=== PATIENT | male | born 1940 | race Caucasian/White ===

== ENCOUNTER → 2018-08-15 17:39 | Outpatient (CLI) | payer MEDICARE, OTHER, SELFPAY ==
[2018-08-15 18:10] LABS: Add Manual Diff / Slide Review NO; Basophils Percent Auto 0.5 % (0-2); Eosinophils Percent Auto 2.9 % (2-4); Hematocrit 46.5 % (41-53); Hemoglobin 15.6 g/dL (13.5-17.5); Lymphocytes Percent Auto 15.4 % (25-40); Mean Corpuscular HGB Conc 33.6 % (30-36); Mean Corpuscular Hemoglobin 30.8 PG (26-34); Mean Corpuscular Volume 91.7 fL (80-100); Monocytes Percent Auto 10.7 % (3-14); Neutrophils Absolute Auto 6500 /uL (3000-5900); Neutrophils Percent Auto 70.5 % (50-75); Platelet Count 167 X10^3/uL (150-400); Red Blood Cell Count 5.08 X10^6/uL (4.5-5.9); Red Cell Distribution Width 13.7 % (11.6-14.8); White Blood Cell Count 9.2 X10^3/uL (4.5-11.0)
[2018-08-15 18:39] LABS: Prothrombin Time 110.7 SECONDS (10.1-12.7)
[2018-08-15 19:00] LABS: INR 9.1 (0.9-1.3)
== END ==
PROVIDERS: PCP Internal Medicine; Visit Provider Dentist Oral and Maxillofacial Surgery
DX: K12.2 Cellulitis and abscess of mouth (principal)
CPT/HCPCS: 36415; 85025; 85610

== ENCOUNTER → 2018-08-18 10:06 | Outpatient (CLI) | payer MEDICARE, OTHER, SELFPAY ==
[2018-08-18 10:29] LABS: INR 1.6 (0.9-1.3); Prothrombin Time 18.3 SECONDS (10.1-12.7)
== END ==
PROVIDERS: PCP Internal Medicine; Visit Provider Dentist Oral and Maxillofacial Surgery
DX: K12.2 Cellulitis and abscess of mouth (principal)
CPT/HCPCS: 36415; 85610

== ENCOUNTER 2018-11-05 06:55 | Inpatient (IN) | payer MEDICARE, OTHER, SELFPAY ==
[2018-11-05] VITALS (15 sets, daily range): BP systolic 90–147; BP diastolic 54–105; PULSE 56–113; RESP 14–21; TEMP 36.4–36.6; O2SAT 94–98; BMI 23.7; BMI 23.6
--- NOTE | 2018-11-05 | DI.NM.S_ITS ---
PROCEDURE: NM NATALIA PERF SPECT R&S PHARM Rest and pharmacological stress myocardial perfusion SPECT with gated imaging and ejection fraction RADIOPHARMACEUTICAL: 27.5 mCi Tc-99m tetrafosmin IV at rest and 26.9 mCi Tc-99m tetrafosmin IV at peak effect of pharmacological stress. [id number] was performed. INDICATIONS: r/o ischemia, elevated enzymes history of CABG TECHNIQUE: Radiopharmaceutical was injected at peak stress test, and also at rest. SPECT images were obtained. SPECT myocardial perfusion images were displayed in short axis, horizontal long axis, and vertical long axis views. Gated images were reviewed using [employer] software. COMPARISON: None. CARDIAC STRESS: A pharmacologic stress test was performed under the supervision of an attending staff, using an infusion of lexiscan 0.4mg IV X1. Hemodynamic data: There is normal blood pressure and heart rate response to pharmacologic stress. Symptoms: The patient denied anginal chest pain. Aminophylline: none EKG: Resting ECG shows atrial fibrillation with RVR and repolarization changes. No diagnostic changes of ischemia with lexiscan; frequent PVCs during the study. FINDINGS: Raw data: There is good myocardial uptake of radiotracer. No significant motion artifacts. Usnk-ji-[id number] ratio is 0.38 (normal is less than 0.38 for tetrafosmin tracer). Left ventricle function: Gated images not done in atrial fibrillation. ID is [id number] (normal less than 1.3). Left ventricle resting end diastolic volume is 103 mL. Myocardial perfusion: There is a severe fixed in the distal anterior wall that extends to the entire apical cap consistent with prior infarction. No ischemia. SSS 20. IMPRESSION: Abnormal pharmaceutical nuclear stress consistent with prior infarction. No ischemia. 1) Abnormal perfusion images consistent with prior transmural infarction in the distal anterior wall and the entire apical cap. 2) No ECG evidence of ischemia. Atrial fibrillation with rapid ventricular response present during the entire study. 3) No angina during the study. 4) Compared to the nuclear stress test done 02/12/2011, no significant change in the perfusion images. Dictated by: Tony Harp MD on 11/07/2018 at 13:01 Approved by: Tony Harp MD on 11/07/2018 at 13:05
--- NOTE | 2018-11-05 07:33 | ED.NEUROSD ---
HPI - Neuro Symptoms/Deficit General Chief Complaint: Neuro Symptoms/Deficit Stated Complaint: DIZZY Time Seen by Provider: 11/05/18 07:05 Source: patient, family and old records reviewed Mode of arrival: ambulatory History of Present Illness HPI Narrative: patient is an 78-year-old male with past medical history of CABG x3 (STOVER to LAD, left radial artery to OM1 and SVG to PDA), chronic AFib on Coumadin, hypertension, CHF (EF of 36% on 11/02/17) presenting with lightheadedness of all my. This is been ongoing for the last 3-5 days. As he was seen evaluated at [facility] on on 11/03/2018. He says he was released however his family states that he left after bagging them to let him go. His he continues to be lightheaded he has no chest pain no heart palpitations. he states it hard for him to describe he denies room spinning numbness tingling or weakness. He has been confused over the past few days as well not the best historian but is able to give some history. According to records his metoprolol was cut in half to 12.5 mg due to hypotension so far in the emergency department his blood pressure seems labile and does have some hypotension but is still in atrial fibrillation. He is currently sitting and reading the paper. Severity: mild On Anticoagulants: Yes Related Data Home Medications Medication Instructions Recorded Confirmed atorvastatin [Lipitor] 80 mg PO QPM 11/05/18 11/05/18 Allergies Allergy/AdvReac Type Severity Reaction Status Date / Time Penicillins Allergy Verified 11/05/18 07:44 Review of Systems Review of Systems ROS Unobtainable: All systems reviewed & are unremarkable except as noted in HPI and below Constitutional Denies chills, Denies fever(s), Denies lethargy and Denies weakness Eyes Denies change in vision, Denies eye discharge, Denies irritation and Denies loss of vision ENT Ears, Nose, Mouth, and Throat: Denies change in voice, Denies vertigo, Denies dizziness, Denies neck pain and Denies sore throat Cardiovascular Denies chest pain, Denies syncope, Reports irregular heart rhythm ( Atrial fibrillation), Reports lightheadedness, Denies dyspnea and Denies dyspnea on exertion Respiratory Denies cough, Denies dyspnea, Denies dyspnea on exertion and Denies wheezing Gastrointestinal Gastrointestinal: Denies abdominal pain, Denies change in bowel habits, Denies diarrhea, Denies nausea and Denies vomiting Genitourinary Denies hematuria, Denies flank pain, Denies urinary incontinence and Denies urinary urgency Musculoskeletal Denies deformity and Denies neck pain Integumentary/Breasts Denies pruritus, Denies erythema, Denies rash and Denies wounds Neurologic Denies vertigo, Denies dizziness, Denies syncope, Denies loss of vision and Denies weakness Allergic/Immunologic Denies wheezing PFSH Medical History Bradycardia (Acute) CHF (congestive heart failure) (Acute) Chronic atrial fibrillation (Acute) Dementia (Acute) Gilbert's disease (Acute) Heart failure with reduced ejection fraction (Acute) Hyperlipidemia (Acute) Hypotension (Acute) Polycythemia vera (Acute) Thrombocytopenia (Acute) Surgical History S/P CABG x 3 (Acute) S/P TAVR (transcatheter aortic valve replacement) (Acute) Family History Sister Cancer Mother Cancer Social History household members: spouse Smoking Status: Never smoker Family History Sister Cancer Mother Cancer Social History household members: spouse Smoking Status: Never smoker Exam Initial Vital Signs Initial Vital Signs: Vital Signs Temperature 97.8 F 11/05/18 07:08 Pulse Rate 108 H 11/05/18 07:08 Respiratory Rate 21 11/05/18 07:08 Blood Pressure 108/67 11/05/18 07:08 Pulse Oximetry 95 11/05/18 07:08 Const General: cooperative, well groomed and frail appearing Orientation: alert, awake and oriented x3 HENMT Head: normal to inspection and normocephalic Eyes General: appearance normal, both eyes and all related structures Neck Neck: normal visual inspection, full ROM and No JVD Chest Chest: normal inspection of the chest Resp Effort & Inspection: normal respiratory effort and able to speak in complete sentences Auscultation: clear to auscultation bilaterally, no rales, no rhonchi and no wheezes Cardio Rate: regular rate Rhythm: regular rhythm Heart Sounds: no click, no gallops, no murmurs and no rubs Pulses: normal peripheral pulses Skin General: no rashes or lesions noted, No jaundice and No petechiae Neuro General: alert, oriented x3, gait normal and no focal motor deficits Speech: speech normal Course Orders Ordered: ED Orders 11/05/18 07:02 EKG-12 Lead Routine 11/05/18 07:15 Complete Blood Count AUTO DIFF Stat Comprehensive Metabolic Panel Stat Lipase Stat Partial Thromboplastin Time Stat Prothrombin Time INR Stat Troponin & CK Cardiac Panel Stat 11/05/18 07:37 CT head/brain wo con Stat XR chest 1V Stat 11/05/18 08:08 Lactate (Lactic Acid) Stat 11/05/18 08:18 Blood Culture Stat 11/05/18 08:55 Influenza A and B by PCR Rapid Stat 11/05/18 09:15 Troponin I Stat 11/05/18 10:15 Ictotest Urine Stat Urinalysis and Microscopic Stat 11/05/18 12:49 US abdomen complete Stat 11/05/18 14:30 Troponin & CK Cardiac Panel Routine 11/05/18 14:33 Education, smoking cessation ONGOING 11/05/18 14:35 Consult to Occupational Therapy Evaluate & Treat Consult to Pharmacy Routine Consult to Physical Therapy Evaluate & Treat 11/06/18 05:00 B Type Natriuretic Peptide Routine Complete Blood Count AUTO DIFF Routine Comprehensive Metabolic Panel Routine Troponin I Routine Acetaminophen (Tylenol) 650 mg PO Q6HR PRN PRN Reason: As Needed for Fever/Mild Pain Atorvastatin Calcium (Lipitor) 80 mg PO BEDTIME ANTONIA Ezetimibe (Zetia) 10 mg PO BEDTIME ANTONIA Sodium Chloride (Normal Saline 0.9%) 1,000 mls @ 200 mls/hr IV CONT ANTONIA Last Infusion: 11/05/18 11:46 Dose: 100 mls/hr Admin: 11/05/18 08:56 Dose: 100 mls/hr Morphine Sulfate (Morphine) 2 mg IV Q4HR PRN PRN Reason: Pain, Moderate (4-6) Ondansetron HCl (Zofran) 4 mg IV Q8HR PRN PRN Reason: Nausea And Vomiting Oxycodone HCl (Percolone) 5 mg PO Q6HR PRN PRN Reason: Pain, Moderate (4-6) Discontinued Medications Cosyntropin (Cortrosyn) 0.25 mg IV NOW ONE Stop: 11/05/18 14:34 Warfarin Sodium (Coumadin) 5 mg PO NOW ONE Stop: 11/05/18 14:43 Vital Signs - 8 hr 11/05/18 07:35 11/05/18 08:36 11/05/18 09:31 Temperature Pulse Rate 103 H 110 H 56 L Respiratory Rate 16 16 16 Blood Pressure Blood Pressure [Left Arm] 94/54 L 90/58 L 113/78 Pulse Oximetry 97 97 98 11/05/18 10:30 11/05/18 11:41 11/05/18 13:31 Temperature Pulse Rate 108 H 113 H 79 Respiratory Rate 17 19 16 Blood Pressure Blood Pressure [Left Arm] 117/76 90/61 114/80 Pulse Oximetry 97 96 97 11/05/18 13:55 11/05/18 14:30 11/05/18 14:50 Temperature 97.6 F Pulse Rate 101 H 93 H Respiratory Rate 15 14 Blood Pressure 147/105 H 133/75 Blood Pressure [Left Arm] Pulse Oximetry 94 95 98 MDM - Neuro Symptoms/Deficit Medical Records Attestation: I reviewed the patient's medical records. Lab Data Attestation: I reviewed the patient's lab results. Result diagrams: 11/05/18 07:15 11/05/18 07:15 Lab Results 11/05/18 11/05/18 11/05/18 Range/Units 07:15 07:15 07:15 WBC 13.0 H (4.5-11.0) X10^3/uL RBC 5.96 H (4.5-5.9) X10^6/uL Hgb 18.2 H (13.5-17.5) g/dL Hct 54.0 H (41-53) % MCV 90.6 (80-100) fL MCH 30.5 (26-34) PG MCHC 33.7 (30-36) % RDW 14.1 (11.6-14.8) % Plt Count 123 L (150-400) X10^3/uL Neut % (Auto) 85.9 H (50-75) % Lymph % (Auto) 6.5 L (25-40) % Hawkins % (Auto) 6.3 (3-14) % Eos % (Auto) 1.1 L (2-4) % Baso % (Auto) 0.2 (0-2) % Neut # (Auto) 73192 H (4215-6512) /uL Lymph # (Auto) 900 L (1834-8172) /uL Hawkins # (Auto) 800 (0-900) /uL Eos # (Auto) 100 (0-450) /uL Baso # (Auto) 0 (0-100) /uL PT 36.1 H (10.1-12.7) SECONDS INR 3.0 H (0.9-1.3) APTT 43 H (26.4-36.2) SECONDS Sodium 140 (137-145) mmol/L Potassium 4.1 (3.4-5.1) mmol/L Chloride 106 (98-107) mmol/L Carbon Dioxide 22 (22-32) mmol/L BUN 23 H (9-20) mg/dL Creatinine 0.90 (0.66-1.25) mg/dL Estimated GFR > 60.0 (>60) mL/min BUN/Creatinine Ratio 25.6 H (6-22) Glucose 110 (80-110) mg/dL Lactate (0.7-2.1) mmol/L Calcium 9.7 (8.4-10.2) mg/dL Total Bilirubin 2.6 H (0.2-1.3) mg/dL AST 40 (17-59) IU/L ALT 41 (21-72) IU/L Alkaline Phosphatase 65 (38-126) U/L Total Creatine Kinase 146 (55-170) U/L CK-MB (CK-2) 4.04 H (<2.37) ng/mL CK-MB (CK-2) Rel Index 2.8 (1.5-5.0) % Troponin I 0.042 H (0.01-0.034) ng/mL Total Protein 7.5 (6.3-8.2) g/dL Albumin 4.4 (3.5-5.0) g/dL Globulin 3.1 (1.7-4.1) g/dL Albumin/Globulin Ratio 1.4 (1.0-2.8) Lipase 64 (23-300) U/L Urine Color Urine Appearance Urine pH (4.5-8.0) Ur Specific Putnam (1.000-1.035) Urine Protein (Negative) Urine Glucose (UA) (Negative) g/dL Urine Ketones (NEGATIVE) Urine Occult Blood (Negative) Urine Nitrate (Negative) Urine Bilirubin (NEGATIVE) Urine Ictotest (Negative) Urine Urobilinogen (0.2) E.U./dL Ur Leukocyte Esterase (NEGATIVE) Urine RBC (0-5/HPF) Urine WBC (0-5/HPF) Ur Squamous Epith Cells Urine Bacteria (None) Hyaline Casts (None) Ur Culture Indicated? Influenza A & B (PCR) (Negative) 11/05/18 11/05/18 11/05/18 Range/Units 08:08 08:55 09:15 WBC (4.5-11.0) X10^3/uL RBC (4.5-5.9) X10^6/uL Hgb (13.5-17.5) g/dL Hct (41-53) % MCV (80-100) fL MCH (26-34) PG MCHC (30-36) % RDW (11.6-14.8) % Plt Count (150-400) X10^3/uL Neut % (Auto) (50-75) % Lymph % (Auto) (25-40) % Hawkins % (Auto) (3-14) % Eos % (Auto) (2-4) % Baso % (Auto) (0-2) % Neut # (Auto) (2442-6685) /uL Lymph # (Auto) (1528-1325) /uL Hawkins # (Auto) (0-900) /uL Eos # (Auto) (0-450) /uL Baso # (Auto) (0-100) /uL PT (10.1-12.7) SECONDS INR (0.9-1.3) APTT (26.4-36.2) SECONDS Sodium (137-145) mmol/L Potassium (3.4-5.1) mmol/L Chloride (98-107) mmol/L Carbon Dioxide (22-32) mmol/L BUN (9-20) mg/dL Creatinine (0.66-1.25) mg/dL Estimated GFR (>60) mL/min BUN/Creatinine Ratio (6-22) Glucose (80-110) mg/dL Lactate 1.2 (0.7-2.1) mmol/L Calcium (8.4-10.2) mg/dL Total Bilirubin (0.2-1.3) mg/dL AST (17-59) IU/L ALT (21-72) IU/L Alkaline Phosphatase (38-126) U/L Total Creatine Kinase (55-170) U/L CK-MB (CK-2) (<2.37) ng/mL CK-MB (CK-2) Rel Index (1.5-5.0) % Troponin I 0.037 H (0.01-0.034) ng/mL Total Protein (6.3-8.2) g/dL Albumin (3.5-5.0) g/dL Globulin (1.7-4.1) g/dL Albumin/Globulin Ratio (1.0-2.8) Lipase (23-300) U/L Urine Color Urine Appearance Urine pH (4.5-8.0) Ur Specific Putnam (1.000-1.035) Urine Protein (Negative) Urine Glucose (UA) (Negative) g/dL Urine Ketones (NEGATIVE) Urine Occult Blood (Negative) Urine Nitrate (Negative) Urine Bilirubin (NEGATIVE) Urine Ictotest (Negative) Urine Urobilinogen (0.2) E.U./dL Ur Leukocyte Esterase (NEGATIVE) Urine RBC (0-5/HPF) Urine WBC (0-5/HPF) Ur Squamous Epith Cells Urine Bacteria (None) Hyaline Casts (None) Ur Culture Indicated? Influenza A & B (PCR) Negative (Negative) 11/05/18 11/05/18 Range/Units 10:15 14:30 WBC (4.5-11.0) X10^3/uL RBC (4.5-5.9) X10^6/uL Hgb (13.5-17.5) g/dL Hct (41-53) % MCV (80-100) fL MCH (26-34) PG MCHC (30-36) % RDW (11.6-14.8) % Plt Count (150-400) X10^3/uL Neut % (Auto) (50-75) % Lymph % (Auto) (25-40) % Hawkins % (Auto) (3-14) % Eos % (Auto) (2-4) % Baso % (Auto) (0-2) % Neut # (Auto) (2364-9219) /uL Lymph # (Auto) (8465-8079) /uL Hawkins # (Auto) (0-900) /uL Eos # (Auto) (0-450) /uL Baso # (Auto) (0-100) /uL PT (10.1-12.7) SECONDS INR (0.9-1.3) APTT (26.4-36.2) SECONDS Sodium (137-145) mmol/L Potassium (3.4-5.1) mmol/L Chloride (98-107) mmol/L Carbon Dioxide (22-32) mmol/L BUN (9-20) mg/dL Creatinine (0.66-1.25) mg/dL Estimated GFR (>60) mL/min BUN/Creatinine Ratio (6-22) Glucose (80-110) mg/dL Lactate (0.7-2.1) mmol/L Calcium (8.4-10.2) mg/dL Total Bilirubin (0.2-1.3) mg/dL AST (17-59) IU/L ALT (21-72) IU/L Alkaline Phosphatase (38-126) U/L Total Creatine Kinase 150 (55-170) U/L CK-MB (CK-2) (<2.37) ng/mL CK-MB (CK-2) Rel Index (1.5-5.0) % Troponin I (0.01-0.034) ng/mL Total Protein (6.3-8.2) g/dL Albumin (3.5-5.0) g/dL Globulin (1.7-4.1) g/dL Albumin/Globulin Ratio (1.0-2.8) Lipase (23-300) U/L Urine Color Yellow Urine Appearance Clear Urine pH 5.0 (4.5-8.0) Ur Specific Putnam >=1.030 H (1.000-1.035) Urine Protein 1+ H (Negative) Urine Glucose (UA) Negative (Negative) g/dL Urine Ketones Trace H (NEGATIVE) Urine Occult Blood Trace-lysed (Negative) Urine Nitrate Negative (Negative) Urine Bilirubin 1+ H (NEGATIVE) Urine Ictotest Negative (Negative) Urine Urobilinogen 0.2 (0.2) E.U./dL Ur Leukocyte Esterase Negative (NEGATIVE) Urine RBC None seen (0-5/HPF) Urine WBC 0-1/hpf (0-5/HPF) Ur Squamous Epith Cells 0-1 /hpf Urine Bacteria None seen (None) Hyaline Casts 0-1/lpf (None) Ur Culture Indicated? Cult not indicated Influenza A & B (PCR) (Negative) Urine Dip Bedside Urine Glucose Negative Bedside Urine Bilirubin - Negative Bedside Urine Ketone + 15 Urine Specific Putnam 1.030 Bedside Urine Occult Blood +/- Bedside Urine pH 5.5 Bedside Urine Protein + 30 Bedside Urine Urobilinogen - Negative Bedside Urine Nitrite - Negative Bedside Urine Leukocytes - Negative Esterase Imaging Data CT scan - head: Radiologist's impression: PROCEDURE: CT HEAD/BRAIN WO CON INDICATIONS: dizzy confusion on coumadin TECHNIQUE: Noncontrast 4.5 mm thick angled axial sections acquired from the foramen magnum to the vertex, with coronal and sagittal reformats. For radiation dose reduction, the following was used: automated exposure control, adjustment of mA and/or kV according to patient size. COMPARISON: [facility], CT, CT HEAD WITHOUT CONTRAST, 11/03/2018, 9:08. FINDINGS: Image quality: Excellent. CSF spaces: Basal cisterns are patent. No extra-axial fluid collections. The ventricles are symmetric in size and shape. Brain: No intracranial bleeds or masses. There is cerebral volume loss for age, with resultant ventricular and sulcal prominence. There are periventricular and deep white matter chronic small vessel ischemic changes. There is intracranial internal carotid artery atherosclerosis. Skull and face: Calvarium and visualized facial bones appear intact, without suspicious lesions. Sinuses: Visualized sinuses and mastoids are clear. IMPRESSION: 1. No acute intracranial process. 2. Moderate atrophy and chronic microvascular ischemic changes. Dictated by: Wendi Barber M.D. on 11/05/2018 at 8:29 Chest x-ray: Radiologist's impression: PROCEDURE: XR CHEST 1V INDICATIONS: a.fib confusion TECHNIQUE: One view of the chest was acquired. COMPARISON: [facility], CR, XR CHEST 1 VIEW, 11/03/2018, 9:31. FINDINGS: Surgical changes and devices: Sternal wires and valve graft material is noted. Lungs and pleura: Lungs are clear. No pleural effusions or pneumothorax. Mediastinum: Mediastinal contours appear normal. Heart size is mildly prominent. Bones and chest wall: No suspicious bony lesions. Overlying soft tissues appear unremarkable. IMPRESSION: No acute pulmonary process. Dictated by: Wendi Barber M.D. on 11/05/2018 at 9:28 ECG Data Attestation: I personally reviewed and interpreted this ECG as follows: Prior ECG tracings: not available for review Interpretation: AFib rate [address] changes no priors at this hospital. MDM Narrative Medical decision making narrative: patient had ambulation trial. He walked a relatively short distance heart rate increased into 130 is blood pressure dropped to 85/50 he was feeling dizzy and lightheaded. I spoke with who is in ED to see and evaluate patient. Discharge Plan Departure Patient Disposition: Admitted as Observation Clinical Impression: Hypotension due to medication, Dizziness Discharge Date/Time: 11/05/18 14:07 Interventions: ED Discharge Assessment Last Done: 11/05/18 14:06 Admit Date/Time: 11/05/18 10:59 Admit Provider: Carolyn Vrenon
--- NOTE | 2018-11-05 07:37 | DI.CT.S_ITS ---
PROCEDURE: CT HEAD/BRAIN WO CON INDICATIONS: dizzy confusion on coumadin TECHNIQUE: Noncontrast 4.5 mm thick angled axial sections acquired from the foramen magnum to the vertex, with coronal and sagittal reformats. For radiation dose reduction, the following was used: automated exposure control, adjustment of mA and/or kV according to patient size. COMPARISON: [facility], CT, CT HEAD WITHOUT CONTRAST, 11/03/2018, 9:08. FINDINGS: Image quality: Excellent. CSF spaces: Basal cisterns are patent. No extra-axial fluid collections. The ventricles are symmetric in size and shape. Brain: No intracranial bleeds or masses. There is cerebral volume loss for age, with resultant ventricular and sulcal prominence. There are periventricular and deep white matter chronic small vessel ischemic changes. There is intracranial internal carotid artery atherosclerosis. Skull and face: Calvarium and visualized facial bones appear intact, without suspicious lesions. Sinuses: Visualized sinuses and mastoids are clear. IMPRESSION: 1. No acute intracranial process. 2. Moderate atrophy and chronic microvascular ischemic changes. Dictated by: Wendi Barber M.D. on 11/05/2018 at 8:29 Approved by: Wendi Barber M.D. on 11/05/2018 at 8:32
--- NOTE | 2018-11-05 07:37 | DI.RAD.S_ITS ---
PROCEDURE: XR CHEST 1V INDICATIONS: a.fib confusion TECHNIQUE: One view of the chest was acquired. COMPARISON: [facility], CR, XR CHEST 1 VIEW, 11/03/2018, 9:31. FINDINGS: Surgical changes and devices: Sternal wires and valve graft material is noted. Lungs and pleura: Lungs are clear. No pleural effusions or pneumothorax. Mediastinum: Mediastinal contours appear normal. Heart size is mildly prominent. Bones and chest wall: No suspicious bony lesions. Overlying soft tissues appear unremarkable. IMPRESSION: No acute pulmonary process. Dictated by: Wendi Barber M.D. on 11/05/2018 at 9:28 Approved by: Wendi Barber M.D. on 11/05/2018 at 9:30
[2018-11-05 07:53] LABS: Add Manual Diff / Slide Review NO; Basophils Absolute Auto 0 /uL (0-100); Basophils Percent Auto 0.2 % (0-2); Eosinophils Absolute Auto 100 /uL (0-450); Eosinophils Percent Auto 1.1 % (2-4); Hemoglobin 18.2 g/dL (13.5-17.5); Lymphocytes Absolute Auto 900 /uL (1100-4500); Lymphocytes Percent Auto 6.5 % (25-40); Mean Corpuscular HGB Conc 33.7 % (30-36); Mean Corpuscular Hemoglobin 30.5 PG (26-34); Mean Corpuscular Volume 90.6 fL (80-100); Monocytes Absolute Auto 800 /uL (0-900); Monocytes Percent Auto 6.3 % (3-14); Neutrophils Absolute Auto 11200 /uL (1500-7000); Neutrophils Percent Auto 85.9 % (50-75); Platelet Count 123 X10^3/uL (150-400); Red Blood Cell Count 5.96 X10^6/uL (4.5-5.9); Red Cell Distribution Width 14.1 % (11.6-14.8)
[2018-11-05 07:55] LABS: Prothrombin Time 36.1 SECONDS (10.1-12.7)
[2018-11-05 07:58] LABS: PTT Partial Thromboplastin Tim 43 SECONDS (26.4-36.2)
[2018-11-05 07:59] LABS: Alanine Aminotransferase 41 IU/L (21-72); Albumin 4.4 g/dL (3.5-5.0); Albumin Globulin Ratio 1.4 (1.0-2.8); Alkaline Phosphatase 65 U/L (38-126); Aspartate Aminotransferase 40 IU/L (17-59); BUN Creatinine Ratio 25.6 (6-22); Bilirubin Total 2.6 mg/dL (0.2-1.3); Blood Urea Nitrogen 23 mg/dL (9-20); Calcium 9.7 mg/dL (8.4-10.2); Carbon Dioxide 22 mmol/L (22-32); Chloride 106 mmol/L (98-107); Creatine Kinase 146 U/L (55-170); Estimated Glomerular Filt Rate > 60.0 mL/min (>60); Globulin 3.1 g/dL (1.7-4.1); Glucose 110 mg/dL (80-110); HEMOLYSIS 19 (0-50); Lipase 64 U/L (23-300); Potassium 4.1 mmol/L (3.4-5.1); Sodium 140 mmol/L (137-145); Total Protein 7.5 g/dL (6.3-8.2)
[2018-11-05 08:10] LABS: Troponin I 0.042 ng/mL (0.01-0.034)
[2018-11-05 08:14] LABS: CKMB % Relative Index 2.8 % (1.5-5.0); Creatine Kinase MB 4.04 ng/mL (<2.37)
[2018-11-05 08:34] LABS: Lactate (Lactic Acid) 1.2 mmol/L (0.7-2.1)
[2018-11-05] MEDS: SODIUM CHLORIDE 0.9% 1,000 ML 100 ML IV (08:56)
[2018-11-05 09:16] LABS: Influenza A and B by PCR Rapid Negative (Negative)
[2018-11-05 09:43] LABS: Troponin I 0.037 ng/mL (0.01-0.034)
--- NOTE | 2018-11-05 10:13 | PC.NURSE ---
Ambulation trial Before walking b/p 153/63 after walk pt states dizzy b/p 85/70 after resting B/P 115/84 Dr. Castro notified. No orders at this time. Pt sitting on edge of bed eating with family at bedside.
[2018-11-05 10:32] LABS: Bacteria Urine None Seen; RBC Urine None Seen (0-5/HPF)
[2018-11-05 10:46] LABS: Appearance Urine UA CLEAR; Bilirubin Urine UA 1+ (NEGATIVE); Color Urine UA YELLOW; Glucose Urine UA NEGATIVE (Negative); Ketones Urine UA TRACE (NEGATIVE); Leukocyte Esterase Urine UA NEGATIVE (NEGATIVE); Nitrite Urine UA NEGATIVE (Negative); Occult Blood Urine UA TRACE-LYSED (Negative); Protein Urine UA 1+ (Negative); Specific Gravity Urine UA >=1.030 (1.000-1.035); Urobilinogen Urine UA 0.2 E.U./dL (0.2)
[2018-11-05 10:52] LABS: Culture Indicated Urine Cult Not Indicated; Hyaline Casts Urine 0-1/LPF; Ictotest Urine Negative (Negative); Squamous Epithelial Cell Urine 0-1 /HPF; WBC Urine 0-1/HPF (0-5/HPF)
--- NOTE | 2018-11-05 12:49 | DI.US.S_ITS ---
PROCEDURE: US ABDOMEN COMPLETE INDICATIONS: ELEVATED BILIRUBIN TECHNIQUE: Real-time scanning was performed of the abdominal and retroperitoneal organs, with image documentation. COMPARISON: [facility], CT, ABD/PELVIS W/CON (PNL), 11/01/2013, 16:23. FINDINGS: Liver: Liver is normal in size and homogeneous in echotexture. Gallbladder: Gallbladder is unremarkable. Wall thickness is within normal limits measuring 1.8 mm. Biliary ducts: Intrahepatic bile ducts are non-dilated. Extrahepatic bile duct caliber measures 3.2 mm. Normal is 6-7 mm or less in diameter, or 10 mm or less post-cholecystectomy. Pancreas: Visualized portions of the pancreas are sonographically normal. Spleen: Spleen is normal in size and homogeneous in echotexture. Kidneys: Kidneys are normal in size and echotexture. Right kidney measures 11.0 cm long; left kidney measures 12.0 cm long. No hydronephrosis or nephrolithiasis. No solid masses. Aorta: Visualized aorta is normal in caliber at less than 3 cm. Iliacs: Proximal common iliac arteries are normal in caliber at less than 2.5 cm. IVC: Intrahepatic inferior vena cava is patent. Miscellaneous: No free abdominal fluid. IMPRESSION: Unremarkable exam. Dictated by: Wendi Barber M.D. on 11/05/2018 at 14:01 Approved by: Wendi Barber M.D. on 11/05/2018 at 14:02
--- NOTE | 2018-11-05 13:01 | P.HP_ITS ---
History of Present Illness Date Patient Seen: 11/05/18 Chief complaint: DIZZY Narrative: Patient is an 78 y/o male who was discharged from [facility] yesterday following admission for dizziness/hypotension. Patient has a history of CABG, Chronic Atrial Fibrillation on coumadin, Hypertension, Hyperlipdemia, who is S/P TAVR (2017). He has CHF with an ejection fraction of 36%, polycythemia vera with thrombocytopena who presented to [facility] ED for evaluation of hypotension and bradycardia. The patient was confused. He had 3 days of dizziness and lightheadedness. Patient was given one liter of fluid in the Emergency Department after evaluation found his heart rate of 49 and bp 90/70. He is followed by Dr. Jacobs and recently was started on metoprolol of 25 mg per day. Patient was admitted overnight and his metoprolol was decreased to 12.5 mg per day. The patient insisted on leaving the hospital and his was discharged home. He reports since returning home he has had diarrhea, some nausea, and persistant dizziness. He has had no shortness of breath or chest pain. He denies palpitaitons. He has not vomitted blood, or had bright red blood per rectum. He reports abdominal pain from his shingles. He has had no fever or chills, no dysuria, hematuria, or pyuria. His WBC was elevated in the ED at 13.3. His repeat CT of the Head was unremarkable and his Chest Xray was negative. EKG revealed atrial fibrillation and an old AMI. According to the family the patient is more confused that usual. In the Emergency department the patient's blood pressure dropped to 85 systolic with a hear rate of 130 when standing. He is admitted to the hospital for further evaluation. Patient History Medical History Bradycardia (Acute) CHF (congestive heart failure) (Acute) Chronic atrial fibrillation (Acute) Dementia (Acute) [place]'s disease (Acute) Heart failure with reduced ejection fraction (Acute) Hyperlipidemia (Acute) Hypotension (Acute) Polycythemia vera (Acute) Thrombocytopenia (Acute) Surgical History S/P CABG x 3 (Acute) S/P TAVR (transcatheter aortic valve replacement) (Acute) Family History Sister Cancer Mother Cancer Social History (Reviewed 11/05/18 @ 07:51 by MAYRA Michelle Smoking Status: Never smoker Family & Social History Family History Sister Cancer Mother Cancer Social History: . lives at home with his Does not smoke does not drink alcohol Safety & Behavioral: Feels Safe in Current Yes Environment Been Physically Hurt or No Threatened By a Person Tobacco & Substance use: Smoking Status Never smoker alcohol intake frequency 0-2 drinks per day Substance Use Type does not use Meds Allergies Allergy/AdvReac Type Severity Reaction Status Date / Time Penicillins Allergy Verified 11/05/18 07:44 Review of Systems Review of Systems All systems reviewed & are unremarkable except as noted in HPI and below Exam Vital Signs (past 8 hours): - 11/05/18 07:08 11/05/18 07:35 11/05/18 08:36 Temperature 97.8 F Pulse Rate 108 H 103 H 110 H Respiratory Rate 21 16 16 Blood Pressure 108/67 Blood Pressure [Left Arm] 94/54 L 90/58 L Pulse Oximetry 95 97 97 11/05/18 09:31 11/05/18 10:30 11/05/18 11:41 Temperature Pulse Rate 56 L 108 H 113 H Respiratory Rate 16 17 19 Blood Pressure Blood Pressure [Left Arm] 113/78 117/76 90/61 Pulse Oximetry 98 97 96 Oxygen Delivery Method Room Air Narrative Exam Narrative: ill appearing male HEENT: NC/AT, EOMI, oropharynx clear, neck supple without adenopathy, no JVD Lungs: decreased breath sounds but clear to auscultation CV: Irregularly, irregular, NL Sl S2 2/6 TIFFANIE ABd: soft/ non tender/ non distended, no HSM Ext: no edema Neuro: confused, Cranial Nerves 2-12 Intact, sensation grossly intact, strength symmetric and equal, gait not assessed, reflexes brisk and equal Psych: pleasant but at times confused/forgetful Objective Labs Result Diagrams: 11/05/18 07:15 11/05/18 07:15 Labs: Laboratory Results - last 24 hr 11/05/18 11/05/18 11/05/18 07:15 07:15 07:15 WBC 13.0 H RBC 5.96 H Hgb 18.2 H Hct 54.0 H MCV 90.6 MCH 30.5 MCHC 33.7 RDW 14.1 Plt Count 123 L Neut % (Auto) 85.9 H Lymph % (Auto) 6.5 L [place] % (Auto) 6.3 Eos % (Auto) 1.1 L Baso % (Auto) 0.2 Neut # (Auto) 80950 H Lymph # (Auto) 900 L [place] # (Auto) 800 Eos # (Auto) 100 Baso # (Auto) 0 PT 36.1 H INR 3.0 H APTT 43 H Sodium 140 Potassium 4.1 Chloride 106 Carbon Dioxide 22 BUN 23 H Creatinine 0.90 Estimated GFR > 60.0 BUN/Creatinine Ratio 25.6 H Glucose 110 Lactate Calcium 9.7 Total Bilirubin 2.6 H AST 40 ALT 41 Alkaline Phosphatase 65 Total Creatine Kinase 146 CK-MB (CK-2) 4.04 H CK-MB (CK-2) Rel Index 2.8 Troponin I 0.042 H Total Protein 7.5 Albumin 4.4 Globulin 3.1 Albumin/Globulin Ratio 1.4 Lipase 64 Urine Color Urine Appearance Urine pH Ur Specific [place] Urine Protein Urine Glucose (UA) Urine Ketones Urine Occult Blood Urine Nitrate Urine Bilirubin Urine Ictotest Urine Urobilinogen Ur Leukocyte Esterase Urine RBC Urine WBC Ur Squamous Epith Cells Urine Bacteria Hyaline Casts Ur Culture Indicated? Influenza A & B (PCR) 11/05/18 11/05/18 11/05/18 08:08 08:55 09:15 WBC RBC Hgb Hct MCV MCH MCHC RDW Plt Count Neut % (Auto) Lymph % (Auto) [place] % (Auto) Eos % (Auto) Baso % (Auto) Neut # (Auto) Lymph # (Auto) [place] # (Auto) Eos # (Auto) Baso # (Auto) PT INR APTT Sodium Potassium Chloride Carbon Dioxide BUN Creatinine Estimated GFR BUN/Creatinine Ratio Glucose Lactate 1.2 Calcium Total Bilirubin AST ALT Alkaline Phosphatase Total Creatine Kinase CK-MB (CK-2) CK-MB (CK-2) Rel Index Troponin I 0.037 H Total Protein Albumin Globulin Albumin/Globulin Ratio Lipase Urine Color Urine Appearance Urine pH Ur Specific [place] Urine Protein Urine Glucose (UA) Urine Ketones Urine Occult Blood Urine Nitrate Urine Bilirubin Urine Ictotest Urine Urobilinogen Ur Leukocyte Esterase Urine RBC Urine WBC Ur Squamous Epith Cells Urine Bacteria Hyaline Casts Ur Culture Indicated? Influenza A & B (PCR) Negative 11/05/18 10:15 WBC RBC Hgb Hct MCV MCH MCHC RDW Plt Count Neut % (Auto) Lymph % (Auto) [place] % (Auto) Eos % (Auto) Baso % (Auto) Neut # (Auto) Lymph # (Auto) [place] # (Auto) Eos # (Auto) Baso # (Auto) PT INR APTT Sodium Potassium Chloride Carbon Dioxide BUN Creatinine Estimated GFR BUN/Creatinine Ratio Glucose Lactate Calcium Total Bilirubin AST ALT Alkaline Phosphatase Total Creatine Kinase CK-MB (CK-2) CK-MB (CK-2) Rel Index Troponin I Total Protein Albumin Globulin Albumin/Globulin Ratio Lipase Urine Color Yellow Urine Appearance Clear Urine pH 5.0 Ur Specific [place] >=1.030 H Urine Protein 1+ H Urine Glucose (UA) Negative Urine Ketones Trace H Urine Occult Blood Trace-lysed Urine Nitrate Negative Urine Bilirubin 1+ H Urine Ictotest Negative Urine Urobilinogen 0.2 Ur Leukocyte Esterase Negative Urine RBC None seen Urine WBC 0-1/hpf Ur Squamous Epith Cells 0-1 /hpf Urine Bacteria None seen Hyaline Casts 0-1/lpf Ur Culture Indicated? Cult not indicated Influenza A & B (PCR) Assessment & Plan Assessment & Plan narrative: 1. Dizziness/Hypotension-Etiology not clear, patient off medications at this time ( he has not taken any medications since home). He reports diarrhea since yesterday but notes dizziness started before diarrhea- Elevated BUN/Creat suggest volume depletion, present on admissions, will r/o adrenal insufficiency -For now will continue IV hydration, hold metoprolol and lisinopril, check orthostatics, continue telemetry 2. Elevated cardiac enzymes, suspect type 2 Myocardial infarction, present on admission-Discussed with Cardiology, will schedule stress test for tomorrow given elevated enzymes and hypotension 3. Chronic Atrial Fibrillation, present on admission-rate currently controlled, no medications to lower blood pressure given hypotension/dizziness, will continue coumadin 4. S/P TAVR 5. S/P CABG, elevated enzymes, stress test tomorrow 6. Gilbert's disease-explains elevated bilirubin 7.Hyperlipidemia 8. Diarrhea, will check Cdiff 8. Chronic Systolic Heart Failure, will monitor closely 9. Memory loss-? Dementia Plan: continue IV hydration, Continue Statin, Continue Coumadin, R/o [place], Stress test in Am. Cardiology consult tomorrow Will check blood and urine cultures to r/o infection. R/o adrenal insufficiency given orthostatic blood pressure. DNR
[2018-11-05 15:15] LABS: Creatine Kinase 150 U/L (55-170)
[2018-11-05 15:28] LABS: Troponin I 0.041 ng/mL (0.01-0.034)
[2018-11-05 15:30] LABS: Creatine Kinase MB 4.52 ng/mL (<2.37)
--- NOTE | 2018-11-05 15:49 | PT.IPTN ---
Physical Therapy Treatment Note M3 PT-IP Subjective Start: 11/05/18 15:48 Freq: NEEDED Status: Active Protocol: Document 11/05/18 15:48 [facility] (Rec: 11/05/18 15:49 [facility] [id number]) Subjective Physical Therapy Visit Type Type Cancellation Notes per RN, pt's HR standing @ bedside into the 140s, not tolerating activity at this time. Recommend to hold PT until HR is more stable, WNL.
--- NOTE | 2018-11-05 15:59 | PC.NURSE ---
Day shift- Report rec'd from SHABANA Ackerman in ED at 1338 on current pt status. Pt arrived via stretcher into room 221 at 1357. Pt A&OX4, forgetful. Arrival BP was 147/105, upon recheck was 133/75. Pt currently on Tele#12. Denies chest pain, discomfort, shortness of breath, nausea while in bed. IVF infusing at 200ml/hr into left wrist PIV. Oriented to call light, bed alarm on. High fall risk precautions in place.
[2018-11-05] MEDS: KCL 20 MEQ IN NS 1,000 ML 100 MEQ IV (16:45)
[2018-11-05] MEDS: WARFARIN 5 MG TABLET PO (16:45)
[2018-11-05] MEDS: ATORVASTATIN 20 MG TABLET 80 MG PO (20:36)
[2018-11-05] MEDS: EZETIMIBE 10 MG TABLET PO (20:36)
[2018-11-06] VITALS (9 sets, daily range): BP systolic 117–157; BP diastolic 73–110; PULSE 89–152; RESP 16–20; TEMP 36.4–37.2; O2SAT 94–96
--- NOTE | 2018-11-06 | DI.MRI.S_ITS ---
PROCEDURE: MR ANGIO HEAD WO CON INDICATIONS: DIZZY TECHNIQUE: Noncontrast axial 3-D [id number] MR angiogram, with 3-dimensional maximum intensity projection (MIP) reformats of the internal carotid arteries and posterior circulation then performed. COMPARISON: [facility], MR, MR HEAD/BRAIN WO CON, 11/06/2018, 17:34. [facility], CT, CT HEAD/BRAIN WO CON, 11/05/2018, 7:36. [facility], MR, ANGIO HEAD WITHOUT CONTRAST, 04/22/2014, 7:41. FINDINGS: Image quality: Excellent. Anterior circulation: Intracranial internal carotid arteries demonstrate normal size and intraluminal flow signal. The flow within the paired anterior cerebral arteries is normal and symmetric. The flow within the middle cerebral arteries is normal and symmetric. The anterior communicating artery is seen. No stenoses, occlusions, or aneurysms. Posterior circulation: Visualized portions of the vertebral arteries demonstrate normal caliber, and join to form a normal appearing basilar artery. The flow within the posterior cerebral arteries is normal and symmetric. No stenoses, occlusions, or aneurysms. IMPRESSION: No significant intracranial MR angiogram abnormality is seen. Stable from 2013. Dictated by: Reji Torres M.D. on 11/06/2018 at 17:16 Approved by: Reji Torres M.D. on 11/06/2018 at 17:17
--- NOTE | 2018-11-06 | DI.MRI.S_ITS ---
PROCEDURE: MR HEAD/BRAIN WO CON INDICATIONS: Global hypoxic injury?? hypotensive TECHNIQUE: The following limited sequences were obtained: Axial diffusion weighted imaging with ADC maps, axial T1 weighted, axial FLAIR, and axial T2-weighted images. After these imaging sequences were obtained, the patient terminated the examination prematurely. COMPARISON: [facility], CT, CT HEAD/BRAIN WO CON, 11/05/2018, 7:36. [facility], MR, MR ANGIO HEAD WO CON, 11/06/2018, 17:34. [facility], MR, ANGIO HEAD WITHOUT CONTRAST, 04/22/2014, 7:41. FINDINGS: Image quality: Excellent. CSF spaces: Ventricles appear symmetric in size and shape. Basal cisterns are patent. No extra-axial fluid collections. Brain: No intracranial bleeds or mass effects. There is cerebral volume loss for age. There are periventricular and deep white matter chronic small vessel ischemic changes. Brainstem appears normal. Diffusion-weighted images show no acute ischemic insults. No chronic ischemic insults. Normal intravascular flow voids are present. Skull and face: Calvarial bone marrow is normal in signal. Orbits are normal. Note is made of bilateral lens replacements. Sinuses: Sinuses and mastoids are clear. IMPRESSION: No findings of acute or subacute infarction can be seen. No abnormal hydrocephalus or brain edema can be seen. Note is made of age-appropriate brain parenchymal volume loss and chronic small vessel ischemic changes. Limited study, which was prematurely terminated by the patient. Dictated by: Reji Torres M.D. on 11/06/2018 at 17:13 Approved by: Reji Torres M.D. on 11/06/2018 at 17:14
[2018-11-06] MEDS: KCL 20 MEQ IN NS 1,000 ML 100 MEQ IV ×2 (03:57→11:39)
[2018-11-06 05:46] LABS: Add Manual Diff / Slide Review NO; Basophils Absolute Auto 0 /uL (0-100); Basophils Percent Auto 0.7 % (0-2); Eosinophils Absolute Auto 100 /uL (0-450); Eosinophils Percent Auto 1.9 % (2-4); Hematocrit 46.7 % (41-53); Hemoglobin 15.5 g/dL (13.5-17.5); Lymphocytes Absolute Auto 1100 /uL (1100-4500); Mean Corpuscular HGB Conc 33.2 % (30-36); Mean Corpuscular Hemoglobin 30.2 PG (26-34); Mean Corpuscular Volume 90.9 fL (80-100); Monocytes Absolute Auto 800 /uL (0-900); Monocytes Percent Auto 11.3 % (3-14); Neutrophils Absolute Auto 4900 /uL (1500-7000); Neutrophils Percent Auto 70.1 % (50-75); Platelet Count 100 X10^3/uL (150-400); Red Blood Cell Count 5.14 X10^6/uL (4.5-5.9); Red Cell Distribution Width 13.8 % (11.6-14.8)
[2018-11-06 05:56] LABS: Alanine Aminotransferase 44 IU/L (21-72); Albumin 3.4 g/dL (3.5-5.0); Albumin Globulin Ratio 1.3 (1.0-2.8); Alkaline Phosphatase 51 U/L (38-126); Aspartate Aminotransferase 38 IU/L (17-59); Bilirubin Total 1.5 mg/dL (0.2-1.3); Blood Urea Nitrogen 20 mg/dL (9-20); Calcium 8.9 mg/dL (8.4-10.2); Carbon Dioxide 21 mmol/L (22-32); Chloride 110 mmol/L (98-107); Estimated Glomerular Filt Rate > 60.0 mL/min (>60); Globulin 2.7 g/dL (1.7-4.1); Glucose 100 mg/dL (80-110); HEMOLYSIS < 15 (0-50); Potassium 4.1 mmol/L (3.4-5.1); Sodium 136 mmol/L (137-145); Total Protein 6.1 g/dL (6.3-8.2)
[2018-11-06 06:07] LABS: Troponin I 0.059 ng/mL (0.01-0.034)
[2018-11-06 06:19] LABS: B Type Natriuretic Peptide 121 (<100)
[2018-11-06 07:14] LABS: Cortisol AM (Before 10AM) 11.6 ug/dL (4.46-22.7)
--- NOTE | 2018-11-06 08:39 | CM.DANOTE ---
Addendum entered by Martina Lazaro R.N. 11/06/18 11:39: Met with daughter, Chayo, and patient's , Shira. Confusion with patient noted. Had just seen hospitalist. Patient is wanting to leave, but needs to be here for more testing. , Shira, is concerned about patient going home, for if he falls, can't get him up. Discussed current cardiac issues, and confusion. Realizes that his heart issues can exacerbate his confusion. Stated that he left [facility] against medical advise. and daughter stated that he did not remember this. When he went home, he became dizzy, and asked to go to the hospital. Discussed half-way, and let her and daughter know that patient would need to be here for 3 midnights as of admit date yesterday, to qualify for half-way. Is unclear if patient would go to half-way, for he is not wanting to stay in the hospital. Discussed possible home health, which would be another option. Let them know, would see how patient does today, and is still working with physical therapy. Will bring in Medicare choice list, and meet with family later, for he is now getting ready to go for his testing. Will meet up with family later today to go over list. Original Note: DCP: Case received, EMR reviewed and met with patient. Introduced self and role. DCP template completed with information currently available. Patient is an 78 year old male who admitted yesterday morning to the care of the hospitalist team. PCP: Dr. Cheung. Payer: confirmed: Medicare. Patient had recently been at [facility], and was discharged on 11/03, for he did not wish to stay there. He was hospitalized with cardiac issues. Patient started developing some dizziness and weakness. He has history of CHF, A-Fib, recent [place]. Patient also has ejection fraction of 36%. Met briefly with patient. in room, but not interactive. Patient lives with his spouse in [place]. he stated that he is independent at home. P: DCP to continue to follow closely, as plan unfolds. Will be available for any resources that patient/family may need. Martina Lazaro RN/Healthcare Translator
[2018-11-06] MEDS: COSYNTROPIN 0.25 MG VIAL IV (10:55)
--- NOTE | 2018-11-06 11:03 | OT.IP.TRT ---
Current Diagnoses Hypotension, unspecified (11/05/18) Occupational Therapy Treatment Note M3 OT- IP Subjective and Pain Start: 11/06/18 11:01 Freq: Status: Active Protocol: Document 11/06/18 11:01 [facility] (Rec: 11/06/18 11:03 [facility] [id number]) OT- Subjective Occupational Therapy Visit Type Type Patient Unavailable Notes When PT touched base with nursing regarding therapy eval , nursing states pt more even more confused today and not appropriate to be seen at this time. Therefore to check on pt tomorrow for OT eval.
--- NOTE | 2018-11-06 11:06 | PT.IPTN ---
Current Diagnoses Hypotension, unspecified (11/05/18) Physical Therapy Treatment Note Notes Pt confusion is rapidly worsening. Will hold PT evaluation for now to allow more time for medical intervention to address this, and then perform PT eval in order to get a better assessment of pt's function, and especially safety with mobility and self-care.
--- NOTE | 2018-11-06 11:39 | PC.NURSE ---
Addendum entered by Stacia Noel R.N. 11/06/18 15:40: With help from family we were able to get patient into clean boxers and sweatpants. Settled back in bed visiting with family. Light in reach, bed alarm on. Original Note: Addendum entered by Stacia Noel R.N. 11/06/18 14:05: Nurses aid called this leader writer into patient's room for assistance. Patient was up in the bathroom with her and had urinated all over the floor and himself. She was trying to assist him in changing his pants and getting cleaned up and he was refusing. He already refused the same intervention earlier in the day. This leader writer asked what his objection was and he stated just get out of here, I said NO. Reassured that we are only trying to help, but patient became more agitated and again insisted that we leave. Patient's and daughter witnessed the whole interaction and agreed that the best thing for us to do would be to leave and try again later. Patient situated in bed with alarm on. Call light in reach. Original Note: Addendum entered by Stacia Noel R.N. 11/06/18 13:25: Patient went off floor for his stress test so lab was unable to draw the cortisol on time. This leader writer let Dr Vernon know that and she said to just have lab draw when patient gets back to the floor. Lab was notified and has already been up to draw. Original Note: Cosyntropin administered at 1130 (not at time scanned into e-mar). This leader writer was unable to change the time in the emar. Lab notified and they will be up to draw at 1200.
--- NOTE | 2018-11-06 12:12 | CM.DPC ---
DCP Cont: Was able to meet with daughter, Chayo, and , Shira again, for patient was having some testing done, was out of the room. He had been agitated prior, and having more individuals in the room was escalating his agitation. Chayo's phone number is: [phone]. She stated that she can usually get through to her dad. Son, Mauricio, will also be here to see patient. They have a total of 5 children. Chayo stated that patient is still wanting to leave. Stated that he continues to look at the clock, and wants to leave by 1:00. Brought in Medicare choice list, Family is aware that if he qualified for skilled, chances are that he would not stay there. Is aware that patient could go home and fall, and can't keep him here if he refuses to stay. Discussed home health. Asked and daughter how he would feel about someone coming into the home. Stated, he would be reluctant, since he always worries about strangers trying to come in and steal things. Family will review list. P: DCP to continue to follow closely and offer resources for family. It is unclear if patient will attempt to leave AMA. Family stated, he's usually ok if one of us are here, but when he's alone, he might try to leave. Will continue to reach out to family. Martina Lazaro RN/Home Fire Alarm Installer
--- NOTE | 2018-11-06 12:27 | PM.TREADMILL ---
Cardiac Stress Test Report Referral & Results Date Patient Seen: 11/06/18 Time Patient Seen: 12:27 Requesting provider: Carolyn Vernon Indication: Inpatient, known coronary disease Rest ECG: Atrial fibrillation with intermittent rapid ventricular response and frequent PVCs Procedure Note: After both written and verbal informed consent the patient had an IV started by the diagnostic imaging RN, and then was hooked up to the treadmill monitoring system. The Lexiscan material, and then the Cardiolite tracer, were administered sequentially. An additional 3 min was spent monitoring the patient while supine on the gurney. The patient had a normal response to all infused materials. Impression: AFib, otherwise normal response to infuse materials Please see perfusion imaging report for details regarding possible ischemia Please note: Actual ECG tracings can be found in the PACS system.
[2018-11-06 14:00] LABS: Cortisol Random 46.3 ug/dL
--- NOTE | 2018-11-06 15:06 | PT.IPTN ---
Current Diagnoses Hypotension, unspecified (11/05/18) Physical Therapy Treatment Note Notes Pt still very confused and agitated, not appropriate for meaningful therapy evals at this time. Will check in on pt 's condition tomorrow.
--- NOTE | 2018-11-06 15:08 | OT.IP.TRT ---
Current Diagnoses Hypotension, unspecified (11/05/18) Occupational Therapy Treatment Note M3 OT- IP Subjective and Pain Start: 11/06/18 11:01 Freq: Status: Active Protocol: Document 11/06/18 15:06 [facility] (Rec: 11/06/18 15:08 [facility] [id number]) OT- Subjective Occupational Therapy Visit Type Type Administrative Note Notes Asked nursing regarding see pt this PM, nursing states would be best to attempt to see pt tomorrow as still very confused.
--- NOTE | 2018-11-06 17:10 | SLP.IPNOTE ---
Speech Therapy evaluation order received. Discussed with nursing. Will wait to see patient until he is no longer agitated.
[2018-11-06] MEDS: LORazepam 2 MG/ML SYRINGE 1 MG IV (17:26)
--- NOTE | 2018-11-06 17:26 | P.PN_ITS ---
Subjective Interval history: Jorge Manrique is an 78-year-old male with past medical history significant for CABG, chronic atrial fibrillation on Coumadin, hypertension, hyperlipidemia, CHF with EF of 36%, polycythemia vera with thrombocytopenia, and aortic stenosis status post TAVR who was discharged from [facility] 11/05/2017 and admitted to [facility] for symptomatic hypotension the same day. The patient is adamant that he would like to go home. He has exhibited some aggressive behavior and is tremulous. It is felt that he would be a safety risk to his family. After long discussion with the family, the patient is a daily drinker approximately 2 vodkas per day but family feels as though he may sneak alcohol as well. Place the patient on CIWA protocol. Patient denies headache, chest pain, shortness of breath, nausea, vomiting, fever, chills, dysuria, diarrhea or constipation. He is voiding without difficulty. He has not had a bowel movement since admission. He is up ambulating with assistance. Exam Vital Signs (past 8 hours): - 11/06/18 11:44 11/06/18 12:00 Temperature 97.7 F Pulse Rate 111 H Respiratory Rate 16 Blood Pressure 150/77 H Pulse Oximetry 94 95 Oxygen Delivery Method Room Air Oxygen Flow Rate 0 Narrative Exam Narrative: General: Elderly male lying in bed and in no acute distress, well-developed, well-nourished, tremulous, agitated and anxious. HEENT: Normocephalic, atraumatic. External ears without defect. Pupils equal, round, and reactive to light. Anicteric sclerae, moist conjunctivae, and no lid lag. Oropharynx free of erythema and cobble stoning with moist mucosa. Neck: Supple with full range of motion. No lymphadenopathy or thyromegaly. Cardiovascular: Regular rhythm, mildly tachycardic, without murmurs, rubs, or gallops appreciated Pulmonary: Clear to auscultation bilaterally without crackles, wheezes, or rhonchi. Normal respiratory effort with no use of accessory muscles. Abdomen: Soft, bowel sounds present, nontender, nondistended. No hepatosplen omegaly or masses appreciated. Extremities: No clubbing, cyanosis, or edema. Skin: Normal temperature, turgor, and texture; no rash, ulcers, or subcutaneous nodules appreciated. Neurological: Cranial nerves grossly intact. Psychiatric: Anxious, agitated, and tremulous. Alert and oriented to person, place, and time. Objective Labs Result Diagrams: 11/06/18 05:27 11/06/18 05:27 Labs: Laboratory Results - last 24 hr 11/06/18 11/06/18 11/06/18 05:27 05:27 05:27 WBC 7.0 RBC 5.14 Hgb 15.5 Hct 46.7 MCV 90.9 MCH 30.2 MCHC 33.2 RDW 13.8 Plt Count 100 L Neut % (Auto) 70.1 Lymph % (Auto) 16.0 L [place] % (Auto) 11.3 Eos % (Auto) 1.9 L Baso % (Auto) 0.7 Neut # (Auto) 4900 Lymph # (Auto) 1100 [place] # (Auto) 800 Eos # (Auto) 100 Baso # (Auto) 0 Sodium 136 L Potassium 4.1 Chloride 110 H Carbon Dioxide 21 L BUN 20 Creatinine 0.80 Estimated GFR > 60.0 BUN/Creatinine Ratio 25.0 H Glucose 100 Calcium 8.9 Total Bilirubin 1.5 H AST 38 ALT 44 Alkaline Phosphatase 51 Troponin I 0.059 H B-Natriuretic Peptide 121 H Total Protein 6.1 L Albumin 3.4 L Globulin 2.7 Albumin/Globulin Ratio 1.3 Random Cortisol Cortisol AM Sample 11.6 11/06/18 13:05 WBC RBC Hgb Hct MCV MCH MCHC RDW Plt Count Neut % (Auto) Lymph % (Auto) [place] % (Auto) Eos % (Auto) Baso % (Auto) Neut # (Auto) Lymph # (Auto) [place] # (Auto) Eos # (Auto) Baso # (Auto) Sodium Potassium Chloride Carbon Dioxide BUN Creatinine Estimated GFR BUN/Creatinine Ratio Glucose Calcium Total Bilirubin AST ALT Alkaline Phosphatase Troponin I B-Natriuretic Peptide Total Protein Albumin Globulin Albumin/Globulin Ratio Random Cortisol 46.3 Cortisol AM Sample Assessment & Plan Assessment & Plan narrative: Jorge Manrique is an 78-year-old male with past medical history significant for CABG, chronic atrial fibrillation on Coumadin, hypertension, hyperlipidemia, CHF with EF of 36%, polycythemia vera with thrombocytopenia, and aortic stenosis status post TAVR who was discharged from [facility] 11/05/2017 and admitted to [facility] for symptomatic hypotension the same day. 1. Symptomatic hypotension, unclear etiology, present on admission. Active. -Likely multifactorial and secondary to volume depletion from diarrhea and on antihypertensive medication. -Ruled out adrenal insufficiency. -Held metoprolol and lisinopril. -Check orthostatics. -Continue to monitor closely on telemetry. -Concern for global hypoxia to brain due to personality changes that the family state was not there previously (specifically aggression), therefore, ordered MR brain, pending. 2. Probable acute alcohol withdrawal, not present on admission. Active. -Patient's family reports that the patient drinks at least 2 vodka drinks per day if not more by sneaking alcohol. -Started CIWA protocol. Of note, patient received Ativan for MRI and his demeanor improved substantially. 3. Acute type 2 Myocardial infarction, present on admission. Active. -The patient was discussed with Cardiology and recommended stress test for which he received his stress portion today that demonstrated large anterior and inferior wall defect, resting portion pending. -Initial troponin 0.042. Trending up 0.059. No chest pain or acute ischemic changes on EKG. 4. Chronic atrial fibrillation, present on admission. Stable. -Rate currently controlled. No medications to lower blood pressure given hypotension/dizziness. -Continue coumadin. INR therapeutic at 3.0. Continue to trend INR daily. 5. Aortic stenosis status post TAVR, present on admission. Stable. 6. Coronary artery disease status post CABG, present on admission. Stable. -Continue cardiac meds including: Atorvastatin 80 mg daily at bedtime, ezetimibe and warfarin. Hold lisinopril and metoprolol as above. -Patient received stress portion of stress test today and will perform rest portion tomorrow. 7. Gilbert's disease, present on admission. Stable. -Bilirubin elevated due to Gilbert's disease. 9. Hyperlipidemia -Continue atorvastatin and ezetimibe as above. 10. Acute diarrhea, present on admission. Resolved. -GI panel ordered but never collected due to patient not having bowel movement. 11. Chronic systolic heart failure, present on admission. Stable. -Does not represent acute CHF exacerbation. -Continue to monitor closely. 12. Memory loss, chronic, present on admission. Active. -Patient likely has vascular dementia which was explained in detail to his family members. -MR brain pending as above. Plan: Started CIWA protocol. Patient will likely be discharged home versus long term facility in the next 1-2 days.
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
[2018-11-07] VITALS (7 sets, daily range): BP systolic 136–150; BP diastolic 76–93; PULSE 87–111; RESP 13–16; TEMP 36.6–37.1; O2SAT 94–99
[2018-11-07] MEDS: HALOPERIDOL 5 MG/ML VIAL IM ×2 (00:10→00:56)
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
[2018-11-07 06:28] LABS: INR 3.6 (0.9-1.3); Prothrombin Time 42.9 SECONDS (10.1-12.7)
[2018-11-07 06:32] LABS: Add Manual Diff / Slide Review NO; Basophils Absolute Auto 100 /uL (0-100); Basophils Percent Auto 0.7 % (0-2); Eosinophils Absolute Auto 100 /uL (0-450); Eosinophils Percent Auto 1.2 % (2-4); Hematocrit 47.4 % (41-53); Hemoglobin 16.1 g/dL (13.5-17.5); Lymphocytes Absolute Auto 2100 /uL (1100-4500); Lymphocytes Percent Auto 23.5 % (25-40); Mean Corpuscular HGB Conc 33.9 % (30-36); Mean Corpuscular Hemoglobin 30.6 PG (26-34); Mean Corpuscular Volume 90.2 fL (80-100); Monocytes Absolute Auto 1000 /uL (0-900); Neutrophils Absolute Auto 5600 /uL (1500-7000); Neutrophils Percent Auto 63.6 % (50-75); Platelet Count 110 X10^3/uL (150-400); Red Blood Cell Count 5.25 X10^6/uL (4.5-5.9); Red Cell Distribution Width 13.8 % (11.6-14.8); White Blood Cell Count 8.8 X10^3/uL (4.5-11.0)
[2018-11-07 06:34] LABS: Magnesium 1.9 mg/dL (1.6-2.3)
[2018-11-07 06:35] LABS: Alanine Aminotransferase 44 IU/L (21-72); Albumin 3.7 g/dL (3.5-5.0); Albumin Globulin Ratio 1.4 (1.0-2.8); Alkaline Phosphatase 49 U/L (38-126); Aspartate Aminotransferase 45 IU/L (17-59); Bilirubin Total 1.2 mg/dL (0.2-1.3); Blood Urea Nitrogen 16 mg/dL (9-20); Calcium 9.3 mg/dL (8.4-10.2); Carbon Dioxide 25 mmol/L (22-32); Chloride 107 mmol/L (98-107); Estimated Glomerular Filt Rate > 60.0 mL/min (>60); Globulin 2.7 g/dL (1.7-4.1); Glucose 84 mg/dL (80-110); HEMOLYSIS < 15 (0-50); Potassium 4.2 mmol/L (3.4-5.1); Sodium 140 mmol/L (137-145); Total Protein 6.4 g/dL (6.3-8.2)
[2018-11-07 06:46] LABS: Troponin I 0.085 ng/mL (0.01-0.034)
[2018-11-07] MEDS: KCL 20 MEQ IN NS 1,000 ML 100 MEQ IV (08:30)
--- NOTE | 2018-11-07 08:31 | PC.NURSE ---
Addendum entered by Stacia Noel R.N. 11/07/18 13:23: Completed stress test without issue. Back in room. Daughter visited and he tolerated that well. CIWA 4 at this time (r/t tremors). Calm and cooperative with nursing interventions. Resting in bed now. Light in reach, alarm on. Original Note: Addendum entered by Stacia Noel R.N. 11/07/18 11:32: Woke up and used urinal with assistance (X3). Ate breakfast on edge of the bed. Calm and cooperative with interventions so far this morning. Off floor for stress test approx. 1115. Original Note: Shift summary: Resting quietly in bed with eyes closed. Startled awake to voice/touch, then dozed right back to sleep. He did allow us to take his vitals and do a nursing assessment (see details as charted). Vitals stable, sats 99% on RA. Lungs CTA. HR irregular, tele monitoring ongoing. No s/sx distress or discomfort, 0 on FLACC scale. IV fluids per orders, site in R forearm WNL. Seizure pads placed on bed, suction set up. Call light in reach, bed alarm on. Door open for close observation.
--- NOTE | 2018-11-07 08:52 | PT.IPTN ---
Current Diagnoses Hypotension, unspecified (11/05/18) Physical Therapy Treatment Note Notes Up trending troponin, will hold PT eval until peaked.
--- NOTE | 2018-11-07 08:55 | OT.IP.TRT ---
Current Diagnoses Hypotension, unspecified (11/05/18) Occupational Therapy Treatment Note M3 OT- IP Subjective and Pain Start: 11/06/18 11:01 Freq: Status: Active Protocol: Document 11/07/18 08:55 PJM (Rec: 11/07/18 16:47 PJM [id number]) OT- Subjective Occupational Therapy Visit Type Type Administrative Note Visit Start Time 08:55 Notes OT evaluation attempted but pt very agitated overnight, orthostatic, now on CIWA protocol (score 5) and note that troponins are increasing. Pt not appropriate for OT services today. Will initiate evaluation as medical status permits. No charge. [ End ]
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
--- NOTE | 2018-11-07 13:30 | PT.IIE ---
Current Diagnoses Hypotension, unspecified (11/05/18) Surgical History (Last Reviewed 11/05/18 @ 13:13 by Carolyn Vernon MD) S/P CABG x 3 (Acute) S/P TAVR (transcatheter aortic valve replacement) (Acute) Medical History (Last Updated 11/05/18 @ 13:16 by Carolyn Vernon MD) Bradycardia (Acute) CHF (congestive heart failure) (Acute) Chronic atrial fibrillation (Acute) Dementia (Acute) Gilbert's disease (Acute) Heart failure with reduced ejection fraction (Acute) Hyperlipidemia (Acute) Hypotension (Acute) Polycythemia vera (Acute) Thrombocytopenia (Acute) Physical Therapy Inpatient Evaluation/Re-Eval M1 PT/OT-IP Prior Functional Status Start: 11/06/18 11:01 Freq: NEEDED Status: Active Protocol: Document 11/07/18 13:30 RS (Rec: 11/07/18 14:34 RS [id number]) Medical Review Prior Functional Status Medical History Reviewed Yes Communication no known deficits Mobility and Gait ind without device Social History Household Members spouse Living Arrangements House Additional Social History Comment Pt currently not a good historian, no family present for clarification. M2 PT-IP Current Condition Start: 11/05/18 15:48 Freq: NEEDED Status: Active Protocol: Document 11/07/18 13:30 RS (Rec: 11/07/18 14:34 RS [id number]) Physical Therapy Current Condition Current Condition Evaluation Date 11/07/18 Treatment Diagnosis impaired mobility Onset Date a few days M3 PT-IP Subjective Start: 11/05/18 15:48 Freq: NEEDED Status: Active Protocol: Document 11/07/18 13:30 RS (Rec: 11/07/18 14:34 [id number]) Subjective Physical Therapy Visit Type Type Initial Evaluation Visit Start Time 13:00 Visit Stop Time 13:30 Total Visit Minutes 30 Physical Therapy Visit Comments Patient Comments pt reports not wanting to do PT, doesn't feel good but couldn't elaborate futher. Pt ultimately agreeable to mobilize in room briefly Patient Goals get out of here Therapy Pain Assessment Pain When Pain Assessed At Rest Pain Present Pain Present Denied Pain M4 PT-IP Mobility and Gait Start: 11/05/18 15:48 Freq: NEEDED Status: Active Protocol: Document 11/07/18 13:30 RS (Rec: 11/07/18 14:34 [id number]) PT-Bed Mobility Assessment Supine to Sit Supine to Sit Standby Assistance Sit to Supine Sit to Supine Standby Assistance PT-Transfer Assessment Sit to and From Stand Sit to and from Stand Contact Guard Assistance Equipment Transfer Assistive Device Gait Belt Front Wheeled Walker Transfers Transfer Destination Bed Chair Transfer Technique walked Transfer Ability Level of Assist Contact Guard Assistance Comments Mobility Comments Pt a little impulsive when moving around and not safe with the FWW, often picking it up or running into objects. No LOB though. Gait Assessment Gait Gait Assistance Required: Contact Guard Assist Distance (Feet) 15 Assistive Devices Assistive Device Gait Belt Front Wheeled Walker Factors Limiting Gait Function Factors Limiting Gait Function Difficulty Following Directions Poor Balance Poor Safety Awareness Comments Gait Comments Again, pt just impulsive and not really following cues for safety. Due to this pt did demonstrate a few LOBs but was able to self-correct for the most part. Pt did have variable stepping pattern and is at an increased fall risk. Stair Climbing Assessment Comments Stair Climbing Comments not tested PT-Balance Assessment Sitting Balance and Reactions Static Sitting Balance Ability Normal Dynamic Sitting Balance Ability Good Standing Balance and Reactions Static Standing Balance Ability Fair Dynamic Standing Balance Ability Fair Device Used FWW M5 PT-IP Objective Assessments Start: 11/05/18 15:48 Freq: NEEDED Status: Active Protocol: Document 11/07/18 13:30 RS (Rec: 11/07/18 14:34 [id number]) Orientation Orientation/Cognition Level of Alertness Confusional State Safety Awareness Decreased Safety Awareness Gross Range of Motion Upper Extremity ROM Assessment Within Functional Limits Lower Extremity ROM Assessment Within Functional Limits Strength Upper Extremity Strength Assessment Within Functional Limits Lower Extremity Strength Assessment Within Functional Limits Coordination Assessment Gross Coordination Gross Coordination Impaired Assessment Finger to Nose Test Minimal Impairment Pronation/Supination Test Minimal Impairment Foot Tapping Test Normal Performance Heel on Gonzalez Test Minimal Impairment Sensation Assessment Comments Sensation Comments Pt denies any sensory changes but not formally tested M7 PT-IP Assessment and Plan Start: 11/05/18 15:48 Freq: NEEDED Status: Active Protocol: Document 11/07/18 13:30 RS (Rec: 11/07/18 14:34 [id number]) PT Summary Assessment and Plan Potential Rehabilitation Potential Fair Status of Condition at Evaluation Evolving Summary Impairments Balance Coordination Cognition Transfers Gait Assessment Summary Pt is admitted for symptomatic hypotension the same day he was discharged from [facility] for TAVR on 11/05/18. Pt currently presents with significant confusion, variable agitation, decreased balance and safety awareness. Due to all of this the patient is at a high fall risk. Pt does have potential for functional improvement with ongoing medical management and daily mobilization with therapy and nursing staff. At this point it is recommended that patient discharge directly home with 24/7 assist from family and HHPT once medically ready. Goals Bed Mobility Goal Independent Transfer Goal Standby Assistance Gait Goal Standby Assistance Gait Distance 50 Days to Meet Goals 3 Frequency of Treatment Frequency Of Treatment Once a Day Treatment Plan Physical Therapy Treatment Plan Transfer Training Gait Training Balance Retraining Discharge Planning Neuromuscular Re-ed Coordination Retraining Other Recommendations and Next Treatment balance, gait progression Focus Recommendations To Nursing Amount of Assist Needed 1 Person Assist Discharge Recommendations PT Discharge Recommendations Home with 24/7 Assist Home Health Equipment Needed for Home Before TBD Discharge
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
[2018-11-07] MEDS: ATORVASTATIN 20 MG TABLET 80 MG PO (19:33)
[2018-11-07] MEDS: MELATONIN 3 MG TABLET 9 MG PO (19:33)
[2018-11-07] MEDS: QUETIAPINE 25 MG TABLET 12.5 MG PO (19:33)
[2018-11-07] MEDS: EZETIMIBE 10 MG TABLET PO (19:33)
--- NOTE | 2018-11-07 20:21 | P.PN_ITS ---
Subjective Date Patient Seen: 11/07/18 Interval history: Jorge Manrique is an 78-year-old male with past medical history significant for CAD status post CABG, chronic atrial fibrillation on Coumadin, hypertension, hyperlipidemia, CHF with EF of 36%, polycythemia vera with thrombocytopenia, and aortic stenosis status post TAVR who was discharged from [facility] 11/05/2017 and admitted to [facility] for symptomatic hypotension the same day. The patient is resting comfortably in bed. He reports that he wants to get better. He is remorseful regarding his behavior yesterday. He continues to be tremulous and tachycardic. He denies formication, hallucinations, paranoid ideations, headache, or any other symptoms of alcohol withdrawal. His orthostasis has essentially resolved after IV fluid administration and antihypertensive medications have been held. He denies chest pain, shortness of breath, nausea, vomiting, fever, chills, dysuria, diarrhea or constipation. He is voiding without difficulty. He has not had a bowel movement since admission. He is up ambulating with assistance. Exam Vital Signs (past 8 hours): - 11/07/18 16:09 11/07/18 16:15 Temperature 98.1 F Pulse Rate 89 Respiratory Rate 14 Blood Pressure 141/76 H Pulse Oximetry 96 96 Oxygen Delivery Method Room Air Oxygen Flow Rate 0 Narrative Exam Narrative: General: Elderly male lying in bed and in no acute distress, well-developed, well-nourished, tremulous and anxious. HEENT: Normocephalic, atraumatic. External ears without defect. Pupils equal, round, and reactive to light. Anicteric sclerae, moist conjunctivae, and no lid lag. Oropharynx free of erythema and cobble stoning with moist mucosa. Neck: Supple with full range of motion. No lymphadenopathy or thyromegaly. Cardiovascular: Regular rhythm, mildly tachycardic, without murmurs, rubs, or gallops appreciated. Pulmonary: Clear to auscultation bilaterally without crackles, wheezes, or rhonchi. Normal respiratory effort with no use of accessory muscles. Abdomen: Soft, bowel sounds present, nontender, nondistended. No hepatosplenomegaly or masses appreciated. Extremities: No clubbing, cyanosis, or edema. Skin: Normal temperature, turgor, and texture; no rash, ulcers, or subcutaneous nodules appreciated. Neurological: Cranial nerves grossly intact. Psychiatric: Anxious and tremulous. Alert and oriented to person, place, and time. Objective Labs Result Diagrams: 11/07/18 06:01 11/07/18 06:01 Labs: Laboratory Results - last 24 hr 11/07/18 11/07/18 11/07/18 06:01 06:01 06:01 WBC 8.8 RBC 5.25 Hgb 16.1 Hct 47.4 MCV 90.2 MCH 30.6 MCHC 33.9 RDW 13.8 Plt Count 110 L Neut % (Auto) 63.6 Lymph % (Auto) 23.5 L [place] % (Auto) 11.0 Eos % (Auto) 1.2 L Baso % (Auto) 0.7 Neut # (Auto) 5600 Lymph # (Auto) 2100 [place] # (Auto) 1000 H Eos # (Auto) 100 Baso # (Auto) 100 PT 42.9 H D INR 3.6 H Sodium Potassium Chloride Carbon Dioxide BUN Creatinine Estimated GFR BUN/Creatinine Ratio Glucose Calcium Magnesium 1.9 Total Bilirubin AST ALT Alkaline Phosphatase Troponin I 0.085 H Total Protein Albumin Globulin Albumin/Globulin Ratio 11/07/18 06:01 WBC RBC Hgb Hct MCV MCH MCHC RDW Plt Count Neut % (Auto) Lymph % (Auto) [place] % (Auto) Eos % (Auto) Baso % (Auto) Neut # (Auto) Lymph # (Auto) [place] # (Auto) Eos # (Auto) Baso # (Auto) PT INR Sodium 140 Potassium 4.2 Chloride 107 Carbon Dioxide 25 BUN 16 Creatinine 0.80 Estimated GFR > 60.0 BUN/Creatinine Ratio 20.0 Glucose 84 Calcium 9.3 Magnesium Total Bilirubin 1.2 AST 45 ALT 44 Alkaline Phosphatase 49 Troponin I Total Protein 6.4 Albumin 3.7 Globulin 2.7 Albumin/Globulin Ratio 1.4 Assessment & Plan Assessment & Plan narrative: Jorge Manrique is an 78-year-old male with past medical history significant for CAD status post CABG, chronic atrial fibrillation on Coumadin, hypertension, hyperlipidemia, CHF with EF of 36%, polycythemia vera with thrombocytopenia, and aortic stenosis status post TAVR who was discharged from [facility] 11/05/2017 and admitted to [facility] for symptomatic hypotension the same day. 1. Symptomatic hypotension, unclear etiology, present on admission. Resolving. -Likely multifactorial and secondary to volume depletion from diarrhea and on antihypertensive medication. -Ruled out adrenal insufficiency. -Held metoprolol and lisinopril. -Continue to check orthostatics. -Continue to monitor closely on telemetry. -Concern for global hypoxic injury to brain during hypotensive episode vs. alcohol withdrawal due to personality changes that the family state were not there previously. MR brain demonstrated small chronic microvascular ischemic changes likely loan representative of vascular dementia and there is possibility that he had a small global ischemic insult which would not be visualized on MR. 2. 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 Active. -Patient's family reports that the patient drinks at least 2 vodka drinks per day if not more by sneaking alcohol. -Continue CIWA protocol. Of note, patient received Ativan for MRI and his demea nor improved substantially. 3. Acute type 2 Myocardial infarction, present on admission. Stable. -Likely secondary to demand ischemia from hypotensive episode. -No chest pain or acute ischemic changes on EKG. -Initial troponin 0.042. Trending up 0.059. No need to continue to trend. -The patient was discussed with Cardiology and recommended NM stress test which demonstrated old fixed large perfusion defect. 4. Chronic atrial fibrillation, present on admission. Stable. -Rate currently controlled. No medications to lower blood pressure given hypotension/dizziness. -Hold coumadin (last dose 11/05). INR supratherapeutic at 3.6. Continue to trend INR daily. INR likely to plateau soon and will consider restarting when appropriate. 5. Aortic stenosis status post TAVR, present on admission. Stable. 6. Coronary artery disease status post CABG, present on admission. Stable. -Continue cardiac meds including: Atorvastatin 80 mg daily at bedtime, ezetimibe and warfarin. Hold lisinopril and metoprolol as above. -NM stress test demonstrated large old fixed perfusion defect and no ongoing active ischemia. 7. Gilbert's disease, present on admission. Stable. -Bilirubin elevated due to Gilbert's disease. 8. Hyperlipidemia, present on admission. Stable. -Continue atorvastatin and ezetimibe as above. 9. Acute diarrhea, present on admission. Resolved. -GI panel ordered but never collected due to patient not having any bowel movements. 10. Chronic systolic heart failure, present on admission. Stable. -Does not represent acute CHF exacerbation. -Continue to monitor closely. 11. Memory loss, chronic, present on admission. Active. -Patient likely has vascular dementia which was explained in detail to his family members. -MR brain demonstrated chronic small microvascular ischemic changes consistent with vascular dementia. -Consider speech therapy to perform mini-mental exam when patient no longer agitated and amenable. Plan: Patient will likely be discharged home versus [facility] in the next 1-2 days after he is through alcohol withdrawal and orthostasis has resolved.
[2018-11-07] MEDS: METOPROLOL ER 25 MG TABLET PO (21:32)
--- NOTE | 2018-11-07 23:42 | PC.NURSE ---
1500- assumed care of pt from outgoing hsfit. PT awake and alert. Pt arouses to voice. pt calm at this itme. but easily agitated with too many questions. pt cooperative with nursing assessments. uses urinal or wlkas to br. fluids infusing. bed alarm set. will continue to monitor 5- pt up standing at bedside using urinal claiming that the [facility] is coming to grape picker his urine for testing so he is going right now really fast. pt has muscle tremors, no sweat. ciwa completed and resulted in 14- handed off to noc rn to give ativan IV. fluids stopped. pt put back in bed. pt became agitated when I asked him about the [facility] people, pt looked at me agitated and said well I don't fricken know, you should know, they came in here asking me telling me they needed urine so before they came back I figured I would go and then they could just take it and not bother me again. ' I stated, Oh, OK. well i will just leave it right here then and they will be able to get it. Pt replied yeah, whatever you want to do so they can get it pt put back in bed. bed alarm set, warm blankets given. will continue to monitor. I tried to ask more questions but pt becomes rude and agitated if asking for explanations for his statements. will continue to monitor.
[2018-11-07] MEDS: LORazepam 2 MG/ML SYRINGE IV (23:44)
[2018-11-08] VITALS (9 sets, daily range): BP systolic 116–153; BP diastolic 71–92; PULSE 68–114; RESP 16–18; TEMP 36.2–36.7; O2SAT 95–98
[2018-11-08 06:11] LABS: INR 2.7 (0.9-1.3); Prothrombin Time 31.2 SECONDS (10.1-12.7)
[2018-11-08] MEDS: FOLIC ACID 1 MG TABLET PO (08:32)
[2018-11-08] MEDS: MULTIVITAMIN 1 TABLET 1 TAB PO (08:32)
[2018-11-08] MEDS: THIAMINE 100 MG TABLET PO (08:32)
[2018-11-08 09:17] LABS: INR 2.5 (0.9-1.3); Prothrombin Time 29.5 SECONDS (10.1-12.7)
[2018-11-08] MEDS: METOPROLOL ER 25 MG TABLET PO (09:23)
--- NOTE | 2018-11-08 11:46 | PT.IPTN ---
Current Diagnoses Hypotension, unspecified (11/05/18) Physical Therapy Treatment Note M2 PT-IP Current Condition Start: 11/05/18 15:48 Freq: NEEDED Status: Active Protocol: Document 11/07/18 13:30 RS (Rec: 11/07/18 14:34 RS [id number]) Physical Therapy Current Condition Current Condition Evaluation Date 11/07/18 Treatment Diagnosis impaired mobility Onset Date a few days M3 PT-IP Subjective Start: 11/05/18 15:48 Freq: NEEDED Status: Active Protocol: Document 11/08/18 11:45 GGD (Rec: 11/08/18 12:46 GGD [id number]) Subjective Physical Therapy Visit Type Type Treatment Note Visit Start Time 11:20 Visit Stop Time 11:45 Total Visit Minutes 25 Number of POWER REACTOR OPERATOR Visits 1 Physical Therapy Visit Comments Patient Comments Pt wants to go home. M4 PT-IP Mobility and Gait Start: 11/05/18 15:48 Freq: NEEDED Status: Active Protocol: Document 11/08/18 11:45 GGD (Rec: 11/08/18 12:46 GGD [id number]) PT-Bed Mobility Assessment Supine to Sit Supine to Sit Standby Assistance Sit to Supine Sit to Supine Standby Assistance PT-Transfer Assessment Sit to and From Stand Sit to and from Stand Contact Guard Assistance Equipment Transfer Assistive Device Gait Belt Front Wheeled Walker Transfers Transfer Destination Bed Transfer Technique walked Transfer Ability Level of Assist Contact Guard Assistance Comments Mobility Comments BP supine 126/97, stitting 132 /80, standing 149/84 Gait Assessment Gait Gait Assistance Required: Contact Guard Assist Distance (Feet) 150 Assistive Devices Assistive Device Gait Belt Front Wheeled Walker Factors Limiting Gait Function Factors Limiting Gait Function Difficulty Following Directions Poor Balance Poor Safety Awareness Comments Gait Comments Gait with FWW x 100 feet with CGA and min cues for FWW management then 50 feet without AD and CGA. M5 PT-IP Objective Assessments Start: 11/05/18 15:48 Freq: NEEDED Status: Active Protocol: Document 11/07/18 13:30 RS (Rec: 11/07/18 14:34 RS [id number]) Orientation Orientation/Cognition Level of Alertness Confusional State Safety Awareness Decreased Safety Awareness Gross Range of Motion Upper Extremity ROM Assessment Within Functional Limits Lower Extremity ROM Assessment Within Functional Limits Strength Upper Extremity Strength Assessment Within Functional Limits Lower Extremity Strength Assessment Within Functional Limits Coordination Assessment Gross Coordination Gross Coordination Impaired Assessment Finger to Nose Test Minimal Impairment Pronation/Supination Test Minimal Impairment Foot Tapping Test Normal Performance Heel on Gonzalez Test Minimal Impairment Sensation Assessment Comments Sensation Comments Pt denies any sensory changes but not formally tested M7 PT-IP Assessment and Plan Start: 11/05/18 15:48 Freq: NEEDED Status: Active Protocol: Document 11/08/18 11:45 GGD (Rec: 11/08/18 12:46 GGD [id number]) PT Summary Assessment and Plan Summary Assessment Summary Pt is progressing with mobility. He was asymptomatic during mobility. He had stable BP. He improved with gait without AD. Pt safe for home D /C when medically stable. Frequency of Treatment Frequency Of Treatment Once a Day Treatment Plan Physical Therapy Treatment Plan Transfer Training Gait Training Balance Retraining Discharge Planning Neuromuscular Re-ed Coordination Retraining Other Recommendations and Next Treatment balance, gait progression Focus Recommendations To Nursing Amount of Assist Needed 1 Person Assist Discharge Recommendations PT Discharge Recommendations Home with Assistance
--- NOTE | 2018-11-08 14:57 | OT.IP.EVAL ---
Current Diagnoses Hypotension, unspecified (11/05/18) Past Medical History (Last Updated 11/05/18 @ 13:16 by Carolyn Vernon MD) Bradycardia (Acute) CHF (congestive heart failure) (Acute) Chronic atrial fibrillation (Acute) Dementia (Acute) Gilbert's disease (Acute) Heart failure with reduced ejection fraction (Acute) Hyperlipidemia (Acute) Hypotension (Acute) Polycythemia vera (Acute) Thrombocytopenia (Acute) Surgical History (Last Reviewed 11/05/18 @ 13:13 by Carolyn Vernon MD) S/P CABG x 3 (Acute) S/P TAVR (transcatheter aortic valve replacement) (Acute) Occupational Therapy Inpatient Evaluation/Re-Eval M1 PT/OT-IP Prior Functional Status Start: 11/06/18 11:01 Freq: NEEDED Status: Active Protocol: Document 11/08/18 14:41 [facility] (Rec: 11/08/18 14:57 [facility] [id number]) Medical Review Prior Functional Status Medical History Reviewed Yes Communication no known deficits Mobility and Gait ind without device Social History Household Members spouse Living Arrangements House Additional Social History Comment Pt currently not a good historian, no family present for clarification. M2 OT-IP Current Condition Start: 11/06/18 11:01 Freq: Status: Active Protocol: Document 11/08/18 14:41 [facility] (Rec: 11/08/18 14:57 [facility] [id number]) Occupational Therapy Current Condition Current Condition Evaluation Date 11/08/18 Treatment Diagnosis Hypotension, confusion Diagnosis Onset Date 11/05/18 M3 OT- IP Subjective and Pain Start: 11/06/18 11:01 Freq: Status: Active Protocol: Document 11/08/18 14:41 [facility] (Rec: 11/08/18 14:57 [facility] [id number]) OT- Subjective Occupational Therapy Visit Type Type Initial Evaluation Visit Start Time 13:45 Visit Stop Time 13:55 Total Visit Minutes 10 Occupational Therapy Visit Comments Patient Comments Pt trying to stand up from the bed to use the bathroom, bed alarm going off. OT Pain Assessment Pain When Pain Assessed At Rest Pain Present Pain Present Denied Pain M4 OT- IP ADL's Start: 11/06/18 11:01 Freq: Status: Active Protocol: Document 11/08/18 14:41 [facility] (Rec: 11/08/18 14:57 [facility] [id number]) OT ADL-Dressing General Eval Lower Body Dressing Ability Standby Assistance Areas Needing Assistance Retrieving/Set-up of Clothing Comments OT Dressing Comments Pt having difficulty to get his feet up to juan alberto brief while sitting. OT ADL-Toileting General Evaluation Toileting Ability Standby Assistance Comments OT Toileting Comments SBA for safety while standing, pt able to hold to FWW and at times without any support while standing to urinate in urinal. OT ADL-Bathing Comments OT Bathing Comments To attempt tomorrow. M6 OT- IP Functional Cognition Start: 11/06/18 11:01 Freq: Status: Active Protocol: Document 11/08/18 14:41 [facility] (Rec: 11/08/18 14:57 [facility] [id number]) Cognitive Factors Limiting Selfcare Function Cognitive Ability Level of Alertness Alert Patient Orientation Name Situation Attention Span Ability Capable of Focused Attention Capable of Sustained Attention Ability to Follow Commands Able to Follow One Step Commands Safety Awareness Underestimates Need for Assistance Problem Solving Ability Needs Assist to Identify Solutions Cognitive Comments Cognitive Assessment Comments Pt impulsive, needing assist to determine front of brief before donning. Cues to scoot up in the bed as initially just lying on the bottom half of the bed. OT- Vision and Hearing OT- Hearing Assessment OT- Hearing Assessment WFL M7 OT- IP Mobility and Balance Start: 11/06/18 11:01 Freq: Status: Active Protocol: Document 11/08/18 14:41 [facility] (Rec: 11/08/18 14:57 [facility] [id number]) OT- Bed Mobility Assessment Rolling Type of Rolling Roll to Left Supine to Sit Supine to Sit Assist Independent Bedrails Sit to Supine Sit to Supine Assist Independent Bedrails OT-Transfer Assessment Sit to and From Stand Sit to and from Stand Standby Assistance Comments Mobility Comments Pt only wanting to stand to use urinal and not wanting to do any grooming or get to the bathroom at this time. OT- Balance Assessment Sitting Balance and Reactions Static Sitting Balance Ability Normal Dynamic Sitting Balance Ability Normal Standing Balance and Reactions Static Standing Balance Ability Fair M8 OT- IP Objective Assessments Start: 11/06/18 11:01 Freq: Status: Active Protocol: Document 11/08/18 14:41 [facility] (Rec: 11/08/18 14:57 [facility] [id number]) OT Gross Range of Motion Upper Extremity Range of Motion Assessment Within Functional Limits OT Strength Upper Extremity Strength Assessment Within Functional Limits M9 OT- IP Assessment and Plan Start: 11/06/18 11:01 Freq: Status: Active Protocol: Document 11/08/18 14:41 [facility] (Rec: 11/08/18 14:57 [facility] [id number]) OT Summary Assessment and Plan Potential Rehabilitation Potential Good Analytic Complexity at Evaluation Low Summary OT Impairments Balance Functional Cognition Functional Mobility Dressing Toileting Bathing Progress Towards Goals Slow Progress due to Medical Issues Slow Progress due to Cognition Assessment Summary Pt low complexity and main barrier is decreased dynamic balance and per pt states able to do things on his own, however not accurate historian at this time. Therefore pt at this time to benefit from 24/ 7 assist at home for safety. Goals Grooming Goal Independent Dressing Goal Independent Toileting Goal Independent Bathing Goal Minimal Assistance Toilet Transfer Goal Independent Shower Transfer Goal Standby Assistance Days to Meet Goals 5 Frequency of Treatment Frequency Of Treatment Once a Day Treatment Plan OT Treatment Plan ADL Training Functional Cognition Training Functional Mobility Patient/Family Education Discharge Planning Other Treatment Recommendations and Next Showering safety Treatment Focus Discharge Recommendations OT Discharge Recommendations Home with 24/7 Assist
--- NOTE | 2018-11-08 15:06 | PM.PN.1 ---
Subjective Date Patient Seen: 11/08/18 Time Patient Seen: 15:07 Interval history: Follow-up on hypotension and alcohol withdrawals. Patient seen at bedside. He is doing well. He is more alert and awake, as well as responding. Patient denies any agitation, fever, chills, any sort of pain. CIWA 0. Patient has been evaluated by speech therapy for cognitive function and found to have cognitive impairment. Patient continues to insist that he wants to go home. Exam Vital Signs (past 8 hours): - 11/08/18 07:50 11/08/18 11:00 11/08/18 11:43 Temperature 97.2 F L 97.3 F L Pulse Rate 88 85 Pulse Rate [Orthostatic Sitting] 96 H Pulse Rate [Orthostatic Standing] 95 H Respiratory Rate 18 18 Blood Pressure 135/90 116/86 Blood Pressure [Orthostatic Sitting] 132/80 Blood Pressure [Orthostatic Standing] 149/84 H Pulse Oximetry 95 98 Oxygen Delivery Method Room Air Oxygen Flow Rate 0 Narrative Exam Narrative: General: Elderly male in no acute distress. Cooperative. HEENT: Normocephalic, atraumatic. Pupils equal, round, and reactive to light. Oropharynx free of erythema and cobble stoning with moist mucosa. Neck: Supple with full range of motion. No lymphadenopathy. Cardiovascular: Regular rhythm, mildly tachycardic, without murmurs, rubs, or gallops appreciated. Pulmonary: Clear to auscultation bilaterally without crackles, wheezes, or rhonchi. Abdomen: Soft, bowel sounds present, nontender, nondistended. No hepatosplenomegaly. Extremities: Normal ROM. Skin: no rash, ulcers, or subcutaneous nodules appreciated. Neurological: Cranial nerves grossly intact. Psychiatric: Mood is appropriate and calm. Cognitive eval : Objective Labs Result Diagrams: 11/07/18 06:01 11/07/18 06:01 Labs: Laboratory Results - last 24 hr 11/08/18 11/08/18 05:38 08:35 PT 31.2 H D 29.5 H INR 2.7 H 2.5 H Assessment & Plan Assessment & Plan narrative: 78yo M with PMH of CAD status post CABG, chronic atrial fibrillation on Coumadin, hypertension, hyperlipidemia, CHF with EF of 36%, polycythemia vera with thrombocytopenia, and aortic stenosis status post TAVR who was discharged from [facility] 11/05/2017 and admitted to [facility] for symptomatic hypotension the same day. 1. Symptomatic hypotension -unclear etiology at this time, possibly from antihypertensive use vs volume depletion from diarrhea. Resolved -Ruled out adrenal insufficiency. -Metoprolol 25mg PO daily has been re-introduced slowly and BP is on the higher end -Continue to monitor closely on telemetry and will add on lisinopril home dose -Monitor BP 2. Acute alcohol withdrawal -CIWA now 0, patient is approaching end of detoxing -MRI showed small chronic microvascular ischemic changes likely customer support representative of vascular dementia -Continue CIWA protocol and Ativan PRN 3. Acute type 2 Demand Ischemia -Likely secondary to demand ischemia from hypotensive episode. -No chest pain or acute ischemic changes on EKG. -Initial troponin 0.042. Trending up 0.059. No need to continue to trend. -The patient was discussed with Cardiology and recommended NM stress test which demonstrated old fixed large perfusion defect, but no acute changes 4. Chronic atrial fibrillation -Rate currently controlled. -INR is 2.5 this morning. Will resume Coumadin -Continue Metoprolol 5. Aortic stenosis status post TAVR, present on admission. Stable. 6. Coronary artery disease status post CABG, present on admission. Stable. -NM stress test demonstrated large old fixed perfusion defect and no ongoing active ischemia. -Continue cardiac meds including: Atorvastatin 80 mg daily at bedtime, ezetimibe, metoprolol, lisinopril, and warfarin. 7. Gilbert's disease -Bilirubin elevated on admission, now stable. 8. Hyperlipidemia -Continue atorvastatin and ezetimibe as above. 9. Acute diarrhea -Resolved -GI panel ordered but never collected due to patient not having any bowel movements. 10. Chronic systolic heart failure, present on admission. Stable. -Does not represent acute CHF exacerbation. -Continue to monitor closely. 11. Memory loss, chronic -Evaluated by Speech today: Patient has neurocognitive defect. Scored 20/30-likely vascular dementia -MR brain demonstrated chronic small microvascular ischemic changes consistent with vascular dementia -Patient will need full psychiatric evaluationv once available Dispo: Possible DC home once out of withdrawals.
--- NOTE | 2018-11-08 15:49 | CM.DPC ---
DCP/continued: Met briefly with patient and family today. Patient in bed resting comfortably. RN reports that patient's behavior has been appropriate. Reviewed therapy notes indicating patient would benefit from SNF and or 24/7 care at home. Patient and family in agreement to short SNF stay. First choice is [facility]. Placed call to Jayla at [facility] providing her with patient's h/o ETOH. Jayla reports that they don't plan on having male bed tomorrow but might on Tuesday. She will let PROGRAMS ASSISTANT know if second choice needed. Long discussion with patient and family on whether or not patient would benefit from SNF vs. ETOH treatment. Family feel that patient would first benefit from getting stronger at SNF prior to next step. Patient not medically stable today but should be within the next 24-48hrs. Patient appears agreeable to either. Other option may include: [facility] phone# [phone] if they will accept for geriatric mental health/etoh abuse. Spoke with hospitalist re: the above. At this time d/c plan has not been secured. Patient agreeable today to either SNF or voluntary rehab for etoh abuse. Concerns from family re: patient's ability to make decisions about plan were discussed. Today, patient agreeable to either option and although appears to have signs of dementia do not have actual diagnosis. P: Pending. Anticipate d/c to SNF if accepted within the next 24-48hrs. HUBER Steiner
--- NOTE | 2018-11-08 16:21 | ST.IP.CME ---
Care Team Visit Care Team Role Provider Type James Cheung MD Primary Care Provider Non-Staff Specialty: Internal Medicine Address: [address] [place], [address] Email: Emma Castro DO Emergency Provider Physician Specialty: Emergency Medicine Address: [address] [place] [address], [id number] Email: Carolyn Vernon MD Admit Provider Physician Attending Provider Specialty: Internal Medicine Address: [address] [place] [address], [id number] Email: [email or web address] Current Diagnoses Hypotension, unspecified (11/05/18) Past Medical History (Last Updated 11/05/18 @ 13:16 by Carolyn Vernon MD) Bradycardia (Acute Medical) CHF (congestive heart failure) (Acute Medical) Chronic atrial fibrillation (Acute Medical) Dementia (Acute Medical) Gilbert's disease (Acute Medical) Heart failure with reduced ejection fraction (Acute Medical) Hyperlipidemia (Acute Medical) Hypotension (Acute Medical) Polycythemia vera (Acute Medical) Thrombocytopenia (Acute Medical) Speech-Language Pathology 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 Patient has a history of CABG, Chronic Atrial Fibrillation on coumadin, Hypertension, Hyperlipdemia, who is S/P TAVR (2017). He has CHF with an ejection fraction of 36%, polycythemia vera with thrombocytopena who presented to [facility] ED for evaluation of hypotension and bradycardia. The patient was confused. He had 3 days of dizziness and lightheadedness. Patient was given one liter of fluid in the Emergency Department after evaluation found his heart rate of 49 and bp 90/70. He is followed by Dr. Jacobs and recently was started on metoprolol of 25 mg per day. Patient was admitted overnight and his metoprolol was decreased to 12.5 mg per day. The patient insisted on leaving the hospital and his was discharged home. He reports since returning home he has had diarrhea, some nausea, and persistent dizziness. He has had no shortness of breath or chest pain. He denies palpitations. 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 When entering thee room, the pt was seated in bedside chair and agreeable to assessment - Informal Assessment Receptive Language Normal WFL Expressive Language Normal WFL Articulation Normal WFL Formal Assessment Standardized Test SLUMS Administration Complete Raw Score 20/30 Results The pt scored 20/30 placing him in the dementia category. The pt had difficulty with naming the day/date. He could not remember 5 items listed after ~4-5 minutes. he had significant difficulty with placing numbers on a clock and placing the hands at a specified time. He was able to compute simople mental math and answer questions related to a story read to him. He was very focused on getting discharged out of the hospital - Cognition Orientation Comment Weak executive function Attention Skill Level Mildly Impaired Problem Solving/Reasoning/Judgment Skill Level Moderately Impaired Divergent Naming Skill Level Mildly Impaired Category Naming/Identification Skill Level Mildly Impaired Auditory Math Skill Level WFL Clock Drawing Skill Level Severely Impaired Cognitive Assessment Cognitive Assessment Pt presented with a moderately severe cognitive disorder based on the result of the SLUMS. he is demonstrating s/ sx dementia with diminished short term memory and executive skill functions. T - Memory Short Term Memory Skill Level Moderately Impaired Immediate Recall Skill Level Mildly Impaired Story Recall Skill Level WFL Long-Term Memory Skill Level WFL - Treatment Goals Short Term Goals Cognitive therapy to improve orientation, problem solving and planning skills Total Time Full Evaluation Time 60
[2018-11-08] MEDS: WARFARIN 3 MG TABLET 6 MG PO (16:57)
[2018-11-08] MEDS: ATORVASTATIN 20 MG TABLET 80 MG PO (20:50)
[2018-11-08] MEDS: MELATONIN 3 MG TABLET 9 MG PO (20:50)
[2018-11-08] MEDS: EZETIMIBE 10 MG TABLET PO (20:50)
[2018-11-09] VITALS (12 sets, daily range): BP systolic 110–147; BP diastolic 63–92; PULSE 84–94; RESP 16–18; TEMP 36.4–36.8; O2SAT 93–98
--- NOTE | 2018-11-09 04:40 | PC.NURSE ---
Pt is AxOx3, pleasant. Bed alarm on, quick to get OOB when needing to use bathroom. CIWA=0. Tele: afib
[2018-11-09 05:43] LABS: Add Manual Diff / Slide Review NO; Basophils Absolute Auto 0 /uL (0-100); Basophils Percent Auto 0.3 % (0-2); Eosinophils Absolute Auto 200 /uL (0-450); Hematocrit 48.8 % (41-53); Hemoglobin 16.6 g/dL (13.5-17.5); Lymphocytes Absolute Auto 1300 /uL (1100-4500); Mean Corpuscular Hemoglobin 30.5 PG (26-34); Mean Corpuscular Volume 89.6 fL (80-100); Monocytes Absolute Auto 800 /uL (0-900); Monocytes Percent Auto 10.3 % (3-14); Neutrophils Absolute Auto 5400 /uL (1500-7000); Neutrophils Percent Auto 69.4 % (50-75); Platelet Count 112 X10^3/uL (150-400); Red Blood Cell Count 5.45 X10^6/uL (4.5-5.9); Red Cell Distribution Width 13.7 % (11.6-14.8); White Blood Cell Count 7.9 X10^3/uL (4.5-11.0)
[2018-11-09 05:48] LABS: Prothrombin Time 23.2 SECONDS (10.1-12.7)
[2018-11-09 05:56] LABS: Blood Urea Nitrogen 19 mg/dL (9-20); Calcium 9.3 mg/dL (8.4-10.2); Carbon Dioxide 30 mmol/L (22-32); Chloride 102 mmol/L (98-107); Estimated Glomerular Filt Rate > 60.0 mL/min (>60); Glucose 90 mg/dL (80-110); HEMOLYSIS < 15 (0-50); Potassium 4.6 mmol/L (3.4-5.1); Sodium 137 mmol/L (137-145)
--- NOTE | 2018-11-09 06:50 | PC.NURSE ---
patient flushed i asked if had bowl movement got agitated said was small but did not see i droped topic before he became too agitated
[2018-11-09] MEDS: LISINOPRIL 5 MG TABLET 2.5 MG PO (08:41)
[2018-11-09] MEDS: FOLIC ACID 1 MG TABLET PO (08:41)
[2018-11-09] MEDS: MULTIVITAMIN 1 TABLET 1 TAB PO (08:42)
[2018-11-09] MEDS: METOPROLOL ER 25 MG TABLET PO (08:42)
[2018-11-09] MEDS: THIAMINE 100 MG TABLET PO (08:42)
--- NOTE | 2018-11-09 11:34 | PT.IPTN ---
Current Diagnoses Hypotension, unspecified (11/05/18) Physical Therapy Treatment Note M2 PT-IP Current Condition Start: 11/05/18 15:48 Freq: NEEDED Status: Active Protocol: Document 11/07/18 13:30 RS (Rec: 11/07/18 14:34 RS [id number]) Physical Therapy Current Condition Current Condition Evaluation Date 11/07/18 Treatment Diagnosis impaired mobility Onset Date a few days M3 PT-IP Subjective Start: 11/05/18 15:48 Freq: NEEDED Status: Active Protocol: Document 11/09/18 11:14 SA (Rec: 11/09/18 11:34 SA [id number]) Subjective Physical Therapy Visit Type Type Treatment Note Visit Start Time 10:42 Visit Stop Time 11:12 Total Visit Minutes 30 Notes Pt up in chair, agreeable to PT. BP at start of session 114 /81 Number of MATERIAL CONTROL SUPERVISOR Visits 2 Physical Therapy Visit Comments Patient Comments Pt reports feeling ready to go home. Therapy Pain Assessment Pain When Pain Assessed At Rest Pain Present Pain Present Denied Pain M4 PT-IP Mobility and Gait Start: 11/05/18 15:48 Freq: NEEDED Status: Active Protocol: Document 11/09/18 11:14 SA (Rec: 11/09/18 11:34 [id number]) PT-Transfer Assessment Sit to and From Stand Sit to and from Stand Contact Guard Assistance Equipment Transfer Assistive Device Gait Belt Transfers Transfer Destination Chair Toilet Transfer Technique walked Transfer Ability Level of Assist Contact Guard Assistance Comments Mobility Comments Did not use FWW today, to get a realistic assessment of how pt mobilizes at home. Pt had no LOB or c/o dizziness. BPs WNLs, able to transfer on/off toilet with SBA-CGA. Gait Assessment Gait Gait Assistance Required: Contact Guard Assist Distance (Feet) 200 Assistive Devices Assistive Device Gait Belt Orthotic/Prosthetic Devices or Brace: No Factors Limiting Gait Function Factors Limiting Gait Function Difficulty Following Directions Poor Balance Poor Safety Awareness Comments Gait Comments GAit training in room, around obstacles and tight spaces with no AD and CGA. Gait training in [place] about 170 feet with no AD and CGA, no LOB noted but pt tends to slightly stagger laterally but correct self. PT-Balance Assessment Comments Other Balance Tests/Deviations/Treatment TUG assessment completed with : no AD and score of 20 seconds which relates to a high fall risk in his age group. Tinetti balance assessment completed with overall score of 22/28 which relates to a Mod fall risk. Functional Assessments Functional Tests Timed Up and Go 20 seconds Tinetti Balance and Gait Assessment 22/28 M5 PT-IP Objective Assessments Start: 11/05/18 15:48 Freq: NEEDED Status: Active Protocol: Document 11/07/18 13:30 RS (Rec: 11/07/18 14:34 RS [id number]) Orientation Orientation/Cognition Level of Alertness Confusional State Safety Awareness Decreased Safety Awareness Gross Range of Motion Upper Extremity ROM Assessment Within Functional Limits Lower Extremity ROM Assessment Within Functional Limits Strength Upper Extremity Strength Assessment Within Functional Limits Lower Extremity Strength Assessment Within Functional Limits Coordination Assessment Gross Coordination Gross Coordination Impaired Assessment Finger to Nose Test Minimal Impairment Pronation/Supination Test Minimal Impairment Foot Tapping Test Normal Performance Heel on Gonzalez Test Minimal Impairment Sensation Assessment Comments Sensation Comments Pt denies any sensory changes but not formally tested M6 PT-IP Treatment Start: 11/05/18 15:48 Freq: NEEDED Status: Active Protocol: Document 11/09/18 11:14 SA (Rec: 11/09/18 11:34 [id number]) Physical Therapy Treatment Exercises Exercises Ankle Pumps Seated Knee Flexion/Extension Education Education Provided Safety M7 PT-IP Assessment and Plan Start: 11/05/18 15:48 Freq: NEEDED Status: Active Protocol: Document 11/09/18 11:14 SA (Rec: 11/09/18 11:34 [id number]) PT Summary Assessment and Plan Summary Assessment Summary Pt with stable BPs today and improving mobility. Objective balance tests reveal Mod-high risk of falls with mobility. Frequency of Treatment Frequency Of Treatment Once a Day Treatment Plan Physical Therapy Treatment Plan Transfer Training Gait Training Balance Retraining Discharge Planning Neuromuscular Re-ed Coordination Retraining Recommendations To Nursing Amount of Assist Needed 1 Person Assist Discharge Recommendations PT Discharge Recommendations Home with Assistance SNF Rehab Other Discharge Recommendations Pt may benefit from SNF rehab to address fall risk and safety awareness.
--- NOTE | 2018-11-09 11:40 | PM.PN.1 ---
Subjective Date Patient Seen: 11/09/18 Time Patient Seen: 11:40 Interval history: Follow-up on hypotension and alcohol withdrawals. Patient seen at bedside. He is doing well. He is more alert and awake, as well as responding. Patient denies any agitation, fever, chills, any sort of pain. CIWA 0. Patient has been evaluated by speech therapy for cognitive function and found to have cognitive impairment. Overnight developed HR changes 60-100 and was slightly Light headed. One episode. Exam Vital Signs (past 8 hours): - 11/09/18 04:11 11/09/18 07:40 11/09/18 07:45 Temperature 97.5 F L 97.6 F Pulse Rate 94 H 88 Respiratory Rate 16 18 Blood Pressure 141/85 H 134/73 Pulse Oximetry 94 96 96 11/09/18 09:32 11/09/18 09:54 Temperature Pulse Rate 91 H 91 H Respiratory Rate 16 Blood Pressure 113/68 113/68 Pulse Oximetry Oxygen Delivery Method Room Air Oxygen Flow Rate 0 Narrative Exam Narrative: General: Elderly male in no acute distress. Cooperative. AAOx2 HEENT: Normocephalic, atraumatic. Pupils equal, round, and reactive to light. Moist mucosa. Neck: Supple with full range of motion. No lymphadenopathy. Cardiovascular: Regular rhythm, mildly tachycardic, without murmurs, rubs, or gallops appreciated. Pulmonary: Clear to auscultation bilaterally without crackles, wheezes, or rhonchi. Abdomen: Soft, bowel sounds present, nontender, nondistended. No hepatosplenomegaly. Extremities: Normal ROM. Skin: no rash, ulcers, or subcutaneous nodules appreciated. Neurological: Cranial nerves grossly intact. Psychiatric: Mood is appropriate and calm. Cognitive eval: Objective Labs Result Diagrams: 11/09/18 05:26 11/09/18 05:26 Labs: Laboratory Results - last 24 hr 11/09/18 11/09/18 11/09/18 05:26 05:26 05:26 WBC 7.9 RBC 5.45 Hgb 16.6 Hct 48.8 MCV 89.6 MCH 30.5 MCHC 34.0 RDW 13.7 Plt Count 112 L Neut % (Auto) 69.4 Lymph % (Auto) 17.0 L Nicholas % (Auto) 10.3 Eos % (Auto) 3.0 Baso % (Auto) 0.3 Neut # (Auto) 5400 Lymph # (Auto) 1300 Nicholas # (Auto) 800 Eos # (Auto) 200 Baso # (Auto) 0 PT 23.2 H D INR 2.0 H Sodium 137 Potassium 4.6 Chloride 102 Carbon Dioxide 30 BUN 19 Creatinine 1.00 Estimated GFR > 60.0 BUN/Creatinine Ratio 19.0 Glucose 90 Calcium 9.3 Assessment & Plan Assessment & Plan narrative: 78yo M with PMH of CAD status post CABG, chronic atrial fibrillation on Coumadin, hypertension, hyperlipidemia, CHF with EF of 36%, polycythemia vera with thrombocytopenia, and aortic stenosis status post TAVR who was discharged from [facility] 11/05/2017 and admitted to [facility] for symptomatic hypotension the same day. 1. Symptomatic hypotension -unclear etiology at this time, possibly from antihypertensive use vs volume depletion from diarrhea. Resolved -Ruled out adrenal insufficiency. -Metoprolol 25mg PO daily and Lisinopril 2.5mg PO Daily have been resumed -Continue to monitor closely on telemetry -Monitor BP 2. Acute alcohol withdrawal -CIWA now 0, patient is approaching end of detoxing -MRI showed small chronic microvascular ischemic changes likely enrollment representative of vascular dementia -Continue CIWA protocol and Ativan PRN 3. Acute type 2 Demand Ischemia -Likely secondary to hypotensive episode. -No chest pain or acute ischemic changes on EKG. -Initial troponin 0.042. Trending up 0.059. No need to continue to trend. -The patient was discussed with Cardiology and recommended NM stress test which demonstrated old fixed large perfusion defect, but no acute changes 4. Chronic atrial fibrillation -Rate currently controlled. -INR is 2.0 this morning. Continue Coumadin as scheduled -Continue Metoprolol 5. Aortic stenosis status post TAVR, present on admission. Stable. 6. Coronary artery disease status post CABG, present on admission. Stable. -NM stress test demonstrated large old fixed perfusion defect and no ongoing active ischemia. -Continue cardiac meds including: Atorvastatin 80 mg daily at bedtime, ezetimibe, metoprolol, lisinopril, and warfarin. 7. Gilbert's disease -Bilirubin elevated on admission, now stable. 8. Hyperlipidemia -Continue atorvastatin and ezetimibe as above. 9. Chronic systolic heart failure, present on admission. Stable. -Does not represent acute CHF exacerbation. -Continue to monitor closely. 10. Memory loss, chronic -Evaluated by Speech today: Patient has neurocognitive defect. Scored 20/30-likely vascular dementia -MR brain demonstrated chronic small microvascular ischemic changes consistent with vascular dementia -Patient will need full psychiatric evaluation once available Dispo: Pending placement to SNF vs discharge home
--- NOTE | 2018-11-09 11:45 | P.PN_ITS ---
Subjective Date Patient Seen: 11/09/18 Time Patient Seen: 11:40 Interval history: Follow-up on hypotension and alcohol withdrawals. Patient seen at bedside. He is doing well. He is more alert and awake, as well as responding. Patient denies any agitation, fever, chills, any sort of pain. CIWA 0. Patient has been evaluated by speech therapy for cognitive function and found to have cognitive impairment. Overnight developed HR changes 60-100 and was slightly Light headed. One episode. Exam Vital Signs (past 8 hours): - 11/09/18 04:11 11/09/18 07:40 11/09/18 07:45 Temperature 97.5 F L 97.6 F Pulse Rate 94 H 88 Respiratory Rate 16 18 Blood Pressure 141/85 H 134/73 Pulse Oximetry 94 96 96 11/09/18 09:32 11/09/18 09:54 Temperature Pulse Rate 91 H 91 H Respiratory Rate 16 Blood Pressure 113/68 113/68 Pulse Oximetry Oxygen Delivery Method Room Air Oxygen Flow Rate 0 Narrative Exam Narrative: General: Elderly male in no acute distress. Cooperative. AAOx2 HEENT: Normocephalic, atraumatic. Pupils equal, round, and reactive to light. Moist mucosa. Neck: Supple with full range of motion. No lymphadenopathy. Cardiovascular: Regular rhythm, mildly tachycardic, without murmurs, rubs, or gallops appreciated. Pulmonary: Clear to auscultation bilaterally without crackles, wheezes, or rhonchi. Abdomen: Soft, bowel sounds present, nontender, nondistended. No hepatosplenomegaly. Extremities: Normal ROM. Skin: no rash, ulcers, or subcutaneous nodules appreciated. Neurological: Cranial nerves grossly intact. Psychiatric: Mood is appropriate and calm. Cognitive eval: Objective Labs Result Diagrams: 11/09/18 05:26 11/09/18 05:26 Labs: Laboratory Results - last 24 hr 11/09/18 11/09/18 11/09/18 05:26 05:26 05:26 WBC 7.9 RBC 5.45 Hgb 16.6 Hct 48.8 MCV 89.6 MCH 30.5 MCHC 34.0 RDW 13.7 Plt Count 112 L Neut % (Auto) 69.4 Lymph % (Auto) 17.0 L [place] % (Auto) 10.3 Eos % (Auto) 3.0 Baso % (Auto) 0.3 Neut # (Auto) 5400 Lymph # (Auto) 1300 [place] # (Auto) 800 Eos # (Auto) 200 Baso # (Auto) 0 PT 23.2 H D INR 2.0 H Sodium 137 Potassium 4.6 Chloride 102 Carbon Dioxide 30 BUN 19 Creatinine 1.00 Estimated GFR > 60.0 BUN/Creatinine Ratio 19.0 Glucose 90 Calcium 9.3 Assessment & Plan Assessment & Plan narrative: 78yo M with PMH of CAD status post CABG, chronic atrial fibrillation on Coumadin, hypertension, hyperlipidemia, CHF with EF of 36%, polycythemia vera with thrombocytopenia, and aortic stenosis status post TAVR who was discharged from [facility] 11/05/2017 and admitted to [facility] for symptomatic hypotension the same day. 1. Symptomatic hypotension -unclear etiology at this time, possibly from antihypertensive use vs volume depletion from diarrhea. Resolved -Ruled out adrenal insufficiency. -Metoprolol 25mg PO daily and Lisinopril 2.5mg PO Daily have been resumed -Continue to monitor closely on telemetry -Monitor BP 2. Acute alcohol withdrawal -CIWA now 0, patient is approaching end of detoxing -MRI showed small chronic microvascular ischemic changes likely public relations representative of vascular dementia -Continue CIWA protocol and Ativan PRN 3. Acute type 2 Demand Ischemia -Likely secondary to hypotensive episode. -No chest pain or acute ischemic changes on EKG. -Initial troponin 0.042. Trending up 0.059. No need to continue to trend. -The patient was discussed with Cardiology and recommended NM stress test which demonstrated old fixed large perfusion defect, but no acute changes 4. Chronic atrial fibrillation -Rate currently controlled. -INR is 2.0 this morning. Continue Coumadin as scheduled -Continue Metoprolol 5. Aortic stenosis status post TAVR, present on admission. Stable. 6. Coronary artery disease status post CABG, present on admission. Stable. -NM stress test demonstrated large old fixed perfusion defect and no ongoing active ischemia. -Continue cardiac meds including: Atorvastatin 80 mg daily at bedtime, ezetimibe, metoprolol, lisinopril, and warfarin. 7. Gilbert's disease -Bilirubin elevated on admission, now stable. 8. Hyperlipidemia -Continue atorvastatin and ezetimibe as above. 9. Chronic systolic heart failure, present on admission. Stable. -Does not represent acute CHF exacerbation. -Continue to monitor closely. 10. Memory loss, chronic -Evaluated by Speech today: Patient has neurocognitive defect. Scored 20/30- likely vascular dementia -MR brain demonstrated chronic small microvascular ischemic changes consistent with vascular dementia -Patient will need full psychiatric evaluation once available Dispo: Pending placement to SNF vs discharge home
--- NOTE | 2018-11-09 13:10 | OT.IP.TRT ---
Current Diagnoses Hypotension, unspecified (11/05/18) Occupational Therapy Treatment Note M2 OT-IP Current Condition Start: 11/06/18 11:01 Freq: Status: Active Protocol: Document 11/08/18 14:41 [facility] (Rec: 11/08/18 14:57 [facility] [id number]) Occupational Therapy Current Condition Current Condition Evaluation Date 11/08/18 Treatment Diagnosis Hypotension, confusion Diagnosis Onset Date 11/05/18 M3 OT- IP Subjective and Pain Start: 11/06/18 11:01 Freq: Status: Active Protocol: Document 11/09/18 13:05 [facility] (Rec: 11/09/18 13:10 [facility] [email or web address]) OT- Subjective Occupational Therapy Visit Type Type Patient Refusal Notes Attempted to see for showering , pt refused as states going home today and not wanting to shower.
--- NOTE | 2018-11-09 14:31 | DIET.PN ---
Pt admit w/ETOH withdrawal; CIWAS of 10-14; now zero Is more alert. has been eating well since admit DX: ETOH withdrawal HX: dementia, cardiac Diet: heart healthy Meds/supplements: MVI, thiamin, folic acid per CIWA prot BMI 24 Assessment: PO intake appears adequate Intervention: Monitoring PO intake
--- NOTE | 2018-11-09 15:55 | ST.IPTN ---
Care Team Visit Care Team Role Provider Type James Cheung MD Primary Care Provider Non-Staff Address: [address] [place], [address] Emma Castro DO Emergency Provider Physician Address: [address] [place] [address], [id number] Carolyn Vernon MD Admit Provider Physician Attending Provider Address: [address] [place] [address], [phone] DEGREASING SOLUTION MIXER Treatment Note DEGREASING SOLUTION MIXER Treatment Note Start: 11/08/18 15:55 Freq: Status: Active Protocol: Document 11/09/18 14:19 LNK (Rec: 11/09/18 14:33 LNK [id number]) Speech Pathology Treatment Note Session Time Visit Start Time 12:30 Visit Stop Time 12:50 Total Visit Minutes 20 Setting Treatment Setting Acute Care Visit Type Note Type Treatment Note Next Note Type Next Note Type Treatment Note General Information General Information Pt was seen for a cognitive evaluation yesterday with a SLUMS score of 20/30. He had difficulty with short term memory and executive function (planning, problem-solving, etc). His score on the SLUMS placed him within a diagnosis level of dementia. Subjective Identification Type Name ID Wristband Observations/Patient Presentation Pt was lying in bed awake. Pt was agreeable to a visit. Rehab Expectation/Goals: Patient Goals Pt wants to discharge home Patient Knowledge/Awareness of DEGREASING SOLUTION MIXER Role Good in Treatment Patient/Caregiver Compliance with Home Fair Exercise Program Objective Short Term Goals Pt will be able to describe 3 steps needed to be able to take medications at home using short term memory strategies for ADLs at 3/5 opportunities. Pt will use environmental cues in order to orient self to day/date/time 3/5 opportunities. Longterm Goals Pt will safely function within living environment upon discharge. Treatment Activities Pt was agreeable to a visit. He was quiet and wanted to talk about his ; apparently she had called and told him she did not want him to come home and she wanted a divorce. He was wondering where he would go and at the same time saying his step- daughter was involved . Steering the conversation toward cognitive issues, he was frustrated with me for asking if he could remember our conversation yesterday, which he talked around the subject: yeah, you were here to ask me questions ...humiliate me. Assuring him I wasn't trying to cause him to feel that way, he then asked if I knew what temperature absolute temperature was. i told him I didn't after he said I knew that, so I asked'. Reported my discussion to hospitalist Dr. Merritt and nursing. Assessment Patient Response to Treatment Fair Rehab Potential Fair Impairments Identified Dementia Memory - Short Term Problem Solving Reviewed with Patient Goals Patient/Caregiver Understanding Fair Plan Comment ST follow up 1-2x then d/c Provided Patient/Caregiver Instruction Questions/Concerns Therapy Recommendations Continue with Current Program
[2018-11-09] MEDS: WARFARIN 3 MG TABLET 6 MG PO (17:02)
[2018-11-09] MEDS: MELATONIN 3 MG TABLET 9 MG PO (20:26)
[2018-11-09] MEDS: EZETIMIBE 10 MG TABLET PO (20:27)
[2018-11-09] MEDS: ATORVASTATIN 20 MG TABLET 80 MG PO (20:27)
--- NOTE | 2018-11-09 21:34 | PC.NURSE ---
At 1800, I was notified by BILINGUAL INSTRUCTOR that the patient was feeling lightheaded. When entering the room at 1805, patient stated that he was not feeling lightheaded. Blood pressure was taken by automatic cuff, 117/63. Pulse Ox showed 84 beats per minute and 97% O2 sat. Patient ambulated to bathroom without difficulty. Patient stated no nausea or dizziness.
--- NOTE | 2018-11-09 22:43 | PC.NURSE ---
Ronit byers note: Was made aware by Rosa Speech Therapist regarding a conversation with patient in which patient expressed his Rosa wanted a divorce. Dr. Gannon was made aware. I had a conversation with patient, asked regarding his home safety and home dynamics. He reported to be moving to another state with his and daughter. He states arrangements are being made so that he is closer to his daughter and he and his will be living separately from daughter but near by. Patient did not expressed much further information regarding relationship issues to this RN.
[2018-11-10] VITALS (7 sets, daily range): BP systolic 83–128; BP diastolic 40–76; PULSE 74–99; RESP 18; TEMP 36.4–36.5; O2SAT 95–98
--- NOTE | 2018-11-10 04:51 | PC.NURSE ---
Patient denied need for pain med this shift. Did have some pain, but did not want meds. Bed alarm and all high fall risk plan followed. Patient uses urinal at the bedside with minimal, to SBA. Cardiac rhythm afib CR. Scattered scratches, scabs, bruises to R arm. Patient has been able to get uninterrupted rest for around 4 hours.
[2018-11-10 06:44] LABS: Add Manual Diff / Slide Review NO; Basophils Absolute Auto 0 /uL (0-100); Basophils Percent Auto 0.2 % (0-2); Eosinophils Absolute Auto 200 /uL (0-450); Eosinophils Percent Auto 2.6 % (2-4); Hemoglobin 16.6 g/dL (13.5-17.5); Lymphocytes Absolute Auto 1300 /uL (1100-4500); Lymphocytes Percent Auto 16.7 % (25-40); Mean Corpuscular HGB Conc 33.8 % (30-36); Mean Corpuscular Hemoglobin 30.3 PG (26-34); Mean Corpuscular Volume 89.5 fL (80-100); Monocytes Absolute Auto 700 /uL (0-900); Monocytes Percent Auto 9.4 % (3-14); Neutrophils Absolute Auto 5400 /uL (1500-7000); Neutrophils Percent Auto 71.1 % (50-75); Platelet Count 117 X10^3/uL (150-400); Red Blood Cell Count 5.47 X10^6/uL (4.5-5.9); Red Cell Distribution Width 13.6 % (11.6-14.8); White Blood Cell Count 7.7 X10^3/uL (4.5-11.0)
[2018-11-10 06:52] LABS: BUN Creatinine Ratio 18.9 (6-22); Blood Urea Nitrogen 17 mg/dL (9-20); Calcium 9.2 mg/dL (8.4-10.2); Carbon Dioxide 26 mmol/L (22-32); Chloride 102 mmol/L (98-107); Estimated Glomerular Filt Rate > 60.0 mL/min (>60); Glucose 87 mg/dL (80-110); HEMOLYSIS 17 (0-50); Sodium 135 mmol/L (137-145)
[2018-11-10 07:03] LABS: INR 2.2 (0.9-1.3); Prothrombin Time 25.6 SECONDS (10.1-12.7)
[2018-11-10] MEDS: FOLIC ACID 1 MG TABLET PO (08:23)
[2018-11-10] MEDS: LISINOPRIL 5 MG TABLET 2.5 MG PO (08:23)
[2018-11-10] MEDS: METOPROLOL ER 25 MG TABLET PO (08:23)
[2018-11-10] MEDS: MULTIVITAMIN 1 TABLET 1 TAB PO (08:24)
[2018-11-10] MEDS: THIAMINE 100 MG TABLET PO (08:24)
--- NOTE | 2018-11-10 10:47 | OT.IP.TRT ---
Current Diagnoses Hypotension, unspecified (11/05/18) Occupational Therapy Treatment Note M2 OT-IP Current Condition Start: 11/06/18 11:01 Freq: Status: Active Protocol: Document 11/08/18 14:41 [facility] (Rec: 11/08/18 14:57 [facility] [id number]) Occupational Therapy Current Condition Current Condition Evaluation Date 11/08/18 Treatment Diagnosis Hypotension, confusion Diagnosis Onset Date 11/05/18 M3 OT- IP Subjective and Pain Start: 11/06/18 11:01 Freq: Status: Active Protocol: Document 11/10/18 10:25 [facility] (Rec: 11/10/18 10:42 [facility] [id number]) OT- Subjective Occupational Therapy Visit Type Type Treatment Note Visit Start Time 10:05 Visit Stop Time 10:20 Total Visit Minutes 15 Occupational Therapy Visit Comments Patient Comments Nursing at this time does not want the pt up due to low BP, therefore able to do cognitive tasks while pt lying in the bed. OT Pain Assessment Pain When Pain Assessed At Rest Pain Present Pain Present Denied Pain M6 OT- IP Functional Cognition Start: 11/06/18 11:01 Freq: Status: Active Protocol: Document 11/10/18 10:25 [facility] (Rec: 11/10/18 10:42 [facility] [id number]) Cognitive Factors Limiting Selfcare Function Cognitive Ability Level of Alertness Alert Patient Orientation Name Attention Span Ability Capable of Focused Attention Unable to Sustain Attention Ability to Follow Commands Able to Follow One Step Commands with Increased Time Able to Follow One Step Commands with Repetition Memory Description Short Term Impaired Working Impaired Safety Awareness Underestimates Need for Assistance Problem Solving Ability Unable to Identify Errors Needs Assist to Identify Solutions Executive Function Ability Unable to Make Plans Unable to Organize Plans Unable to Remember Details Cognitive Tests ACL Pt score 3.4 /6.0 Pt's score implies that pt will require [address] objects needed to do activities of daily living in front of the patient and sequence through the task of ADl's, med/meals, and needs barriers and alarm to ensure safety. Cognitive Comments Cognitive Assessment Comments Pt attempted to do ACL , however states, I do not want to do this anymore after getting frustrated and not being able to complete 2nd task. Document 11/10/18 10:25 [facility] (Rec: 11/10/18 10:47 [facility] [id number]) OT Summary Assessment and Plan Potential Rehabilitation Potential Fair Analytic Complexity at Evaluation Low Summary OT Impairments Balance Functional Cognition Functional Mobility Dressing Toileting Bathing Progress Towards Goals Slow Progress due to Medical Issues Slow Progress due to Cognition Assessment Summary Pt main barrier is decreased functional cognition and poor safety awareness. Based on ACl and observation of pt, recommend to have 24/7 supervision and assist. Goals Grooming Goal Standby Assistance Dressing Goal Standby Assistance Toileting Goal Standby Assistance Bathing Goal Minimal Assistance Toilet Transfer Goal Standby Assistance Shower Transfer Goal Standby Assistance Days to Meet Goals 5 Frequency of Treatment Frequency Of Treatment Once a Day Treatment Plan OT Treatment Plan ADL Training Functional Cognition Training Functional Mobility Patient/Family Education Discharge Planning Discharge Recommendations OT Discharge Recommendations Home with 24/7 Assist
--- NOTE | 2018-11-10 10:52 | OT.IP.TRT ---
Current Diagnoses Hypotension, unspecified (11/05/18) Occupational Therapy Treatment Note M2 OT-IP Current Condition Start: 11/06/18 11:01 Freq: Status: Active Protocol: Document 11/08/18 14:41 [facility] (Rec: 11/08/18 14:57 [facility] [id number]) Occupational Therapy Current Condition Current Condition Evaluation Date 11/08/18 Treatment Diagnosis Hypotension, confusion Diagnosis Onset Date 11/05/18 M3 OT- IP Subjective and Pain Start: 11/06/18 11:01 Freq: Status: Active Protocol: Document 11/10/18 10:25 [facility] (Rec: 11/10/18 10:42 [facility] [id number]) OT- Subjective Occupational Therapy Visit Type Type Treatment Note Visit Start Time 10:05 Visit Stop Time 10:20 Total Visit Minutes 15 Occupational Therapy Visit Comments Patient Comments Nursing at this time does not want the pt up due to low BP, therefore able to do cognitive tasks while pt lying in the bed. OT Pain Assessment Pain When Pain Assessed At Rest Pain Present Pain Present Denied Pain M4 OT- IP ADL's Start: 11/06/18 11:01 Freq: Status: Active Protocol: Document 11/08/18 14:41 [facility] (Rec: 11/08/18 14:57 [facility] [id number]) OT ADL-Dressing General Eval Lower Body Dressing Ability Standby Assistance Areas Needing Assistance Retrieving/Set-up of Clothing Comments OT Dressing Comments Pt having difficulty to get his legs up to don brief while sitting. OT ADL-Toileting General Evaluation Toileting Ability Standby Assistance Comments OT Toileting Comments SBA for safety while standing, pt able to hold to FWW and at times without any support while standing to urinate in urinal. OT ADL-Bathing Comments OT Bathing Comments To attempt tomorrow. M6 OT- IP Functional Cognition Start: 11/06/18 11:01 Freq: Status: Active Protocol: Document 11/10/18 10:25 [facility] (Rec: 11/10/18 10:42 [facility] [id number]) Cognitive Factors Limiting Selfcare Function Cognitive Ability Level of Alertness Alert Patient Orientation Name Attention Span Ability Capable of Focused Attention Unable to Sustain Attention Ability to Follow Commands Able to Follow One Step Commands with Increased Time Able to Follow One Step Commands with Repetition Memory Description Short Term Impaired Working Impaired Safety Awareness Underestimates Need for Assistance Problem Solving Ability Unable to Identify Errors Needs Assist to Identify Solutions Executive Function Ability Unable to Make Plans Unable to Organize Plans Unable to Remember Details Cognitive Tests ACL Pt score 3.4 /6.0 Pt's score implies that pt will require [address] objects needed to do activities of daily living in front of the patient and sequence through the task of ADl's, med/meals, and needs barriers and alarm to ensure safety. Cognitive Comments Cognitive Assessment Comments Pt attempted to do ACL , however states, I do not want to do this anymore after getting frustrated and not being able to complete 2nd task. M7 OT- IP Mobility and Balance Start: 11/06/18 11:01 Freq: Status: Active Protocol: Document 11/08/18 14:41 [facility] (Rec: 11/08/18 14:57 [facility] [email or web address]) OT- Bed Mobility Assessment Rolling Type of Rolling Roll to Left Supine to Sit Supine to Sit Assist Independent Bedrails Sit to Supine Sit to Supine Assist Independent Bedrails OT-Transfer Assessment Sit to and From Stand Sit to and from Stand Standby Assistance Comments Mobility Comments Pt only wanting to stand to use urinal and not wanting to do any grooming or get to the bathroom at this time. OT- Balance Assessment Sitting Balance and Reactions Static Sitting Balance Ability Normal Dynamic Sitting Balance Ability Normal Standing Balance and Reactions Static Standing Balance Ability Fair M8 OT- IP Objective Assessments Start: 11/06/18 11:01 Freq: Status: Active Protocol: Document 11/08/18 14:41 [facility] (Rec: 11/08/18 14:57 [facility] [id number]) OT Gross Range of Motion Upper Extremity Range of Motion Assessment Within Functional Limits OT Strength Upper Extremity Strength Assessment Within Functional Limits M9 OT- IP Assessment and Plan Start: 11/06/18 11:01 Freq: Status: Active Protocol: Document 11/10/18 10:25 [facility] (Rec: 11/10/18 10:47 [facility] [id number]) OT Summary Assessment and Plan Potential Rehabilitation Potential Fair Analytic Complexity at Evaluation Low Summary OT Impairments Balance Functional Cognition Functional Mobility Dressing Toileting Bathing Progress Towards Goals Slow Progress due to Medical Issues Slow Progress due to Cognition Assessment Summary Pt main barrier is decreased functional cognition and poor safety awareness. Based on ACl and observation of pt, recommend to have 24/7 supervision and assist versus [facility]. Goals Grooming Goal Standby Assistance Dressing Goal Standby Assistance Toileting Goal Standby Assistance Bathing Goal Minimal Assistance Toilet Transfer Goal Standby Assistance Shower Transfer Goal Standby Assistance Days to Meet Goals 5 Frequency of Treatment Frequency Of Treatment Once a Day Treatment Plan OT Treatment Plan ADL Training Functional Cognition Training Functional Mobility Patient/Family Education Discharge Planning Discharge Recommendations OT Discharge Recommendations Home with 24/ Assist vs SNF
--- NOTE | 2018-11-10 11:50 | PT.IPTN ---
Current Diagnoses Hypotension, unspecified (11/05/18) Physical Therapy Treatment Note M2 PT-IP Current Condition Start: 11/05/18 15:48 Freq: NEEDED Status: Active Protocol: Document 11/07/18 13:30 [facility] (Rec: 11/07/18 14:34 [facility] [id number]) Physical Therapy Current Condition Current Condition Evaluation Date 11/07/18 Treatment Diagnosis impaired mobility Onset Date a few days M3 PT-IP Subjective Start: 11/05/18 15:48 Freq: NEEDED Status: Active Protocol: Document 11/10/18 11:50 [facility] (Rec: 11/10/18 12:00 [facility] [id number]) Subjective Physical Therapy Visit Type Type Treatment Note Visit Start Time 11:25 Visit Stop Time 11:50 Total Visit Minutes 25 Number of LAUNDRY OPERATOR FINISHING Visits 3 Physical Therapy Visit Comments Patient Comments Pt states he is feeling better . M4 PT-IP Mobility and Gait Start: 11/05/18 15:48 Freq: NEEDED Status: Active Protocol: Document 11/10/18 11:50 [facility] (Rec: 11/10/18 12:00 [facility] [id number]) PT-Bed Mobility Assessment Supine to Sit Supine to Sit Standby Assistance Scooting Scooting to Edge of Bed Standby Assistance PT-Transfer Assessment Sit to and From Stand Sit to and from Stand Contact Guard Assistance Equipment Transfer Assistive Device Gait Belt Transfers Transfer Destination Chair Transfer Ability Level of Assist Contact Guard Assistance Comments Mobility Comments supine BP 104/69 HR 87, Sitting 128/64, standing 116/ 56 HR 78, sitting after activity 127/65 HR 86 Gait Assessment Gait Gait Assistance Required: Contact Guard Assist Distance (Feet) 150 Assistive Devices Assistive Device Gait Belt Front Wheeled Walker Factors Limiting Gait Function Factors Limiting Gait Function Difficulty Following Directions Poor Balance Poor Safety Awareness Comments Gait Comments gait without AD, no LOB with head turns or aroung obstacles. M5 PT-IP Objective Assessments Start: 11/05/18 15:48 Freq: NEEDED Status: Active Protocol: Document 11/07/18 13:30 RS (Rec: 11/07/18 14:34 RS [id number]) Orientation Orientation/Cognition Level of Alertness Confusional State Safety Awareness Decreased Safety Awareness Gross Range of Motion Upper Extremity ROM Assessment Within Functional Limits Lower Extremity ROM Assessment Within Functional Limits Strength Upper Extremity Strength Assessment Within Functional Limits Lower Extremity Strength Assessment Within Functional Limits Coordination Assessment Gross Coordination Gross Coordination Impaired Assessment Finger to Nose Test Minimal Impairment Pronation/Supination Test Minimal Impairment Foot Tapping Test Normal Performance Heel on Gonzalez Test Minimal Impairment Sensation Assessment Comments Sensation Comments Pt denies any sensory changes but not formally tested M6 PT-IP Treatment Start: 11/05/18 15:48 Freq: NEEDED Status: Active Protocol: Document 11/09/18 11:14 [facility] (Rec: 11/09/18 11:34 [facility] [id number]) Physical Therapy Treatment Exercises Exercises Ankle Pumps Seated Knee Flexion/Extension Education Education Provided Safety M7 PT-IP Assessment and Plan Start: 11/05/18 15:48 Freq: NEEDED Status: Active Protocol: Document 11/10/18 11:50 [facility] (Rec: 11/10/18 12:00 [facility] [id number]) PT Summary Assessment and Plan Summary Assessment Summary Pt improving with mobility. He is slight unsteadiness without LOB and able to self correct. Frequency of Treatment Frequency Of Treatment Once a Day Treatment Plan Physical Therapy Treatment Plan Transfer Training Gait Training Balance Retraining Discharge Planning Neuromuscular Re-ed Coordination Retraining Recommendations To Nursing Amount of Assist Needed 1 Person Assist Discharge Recommendations PT Discharge Recommendations Home with Assistance
--- NOTE | 2018-11-10 12:24 | ST.IPTN ---
Care Team Visit Care Team Role Provider Type James Cheung MD Primary Care Provider Non-Staff Address: [address] [place], [address] Emma Castro DO Emergency Provider Physician Address: [address] [place] [address], [id number] Carolyn Vernon MD Admit Provider Physician Attending Provider Address: [address] [place] [address], [id number] [employer] Treatment Note [employer]SC[employer]IST Treatment Note Start: 11/08/18 15:55 Freq: Status: Active Protocol: Document 11/10/18 12:05 [email or web address] (Rec: 11/10/18 12:23 NITINK [id number]) Speech Pathology Treatment Note Session Time Visit Start Time 11:30 Visit Stop Time 12:30 Total Visit Minutes 30 Setting Treatment Setting Acute Care Visit Type Note Type Discharge Summary General Information General Information Pt was seen for a cognitive evaluation yesterday with a SLUMS score of 20/30. He had difficulty with short term memory and executive function (planning, problem-solving, etc). His score on the SLUMS placed him within a diagnosis level of dementia. Subjective Identification Type Name ID Wristband Observations/Patient Presentation Pt was up in bedside chair following PT session. Pt oriented to place, person, time . Aware that the nursing staff are monitoring his blood pressure. Rehab Expectation/Goals: Patient Goals Pt wants to discharge home Patient Knowledge/Awareness of LANDSCAPING SPECIALIST Role Good in Treatment Patient/Caregiver Compliance with Home Fair Exercise Program Objective Long-Term Goals Pt will safely function within living environment upon discharge. Treatment Activities Pt was agreeable to a visit. Discussed plans for discharge home. When asked who will be there with him he noted his daughter and . He had difficulty remembering our discussion from yesterday. Reviewed with him the diminished short term memory results on the SLUMS. Provided education re: reminding systems such as white board lists, using a calendar, or a phone reminder system. Pt said he has a calendar at home. Pt was able to list and describe the steps needed for taking his medications and taking shower at home. He was a little irritated at the questioning, but was able to describe sequencing with minimal assistance. Attempted to have pt describe how he would respond if he had left a pot on the stove and the fire alarm was going in his home. He responded with I would never put a pot on the stove in the first place. Assessment Patient Response to Treatment Fair Impairments Identified Dementia Memory - Short Term Problem Solving Assessment of Improvement Overall the pt has made improvement in his cognitive skills. However, he continues to have short term memory deficits as well as difficulty with problem-solving, planning, etc. Pt tends to cover and/or minimize deficits with distractions, denials, etc. Pt is scheduled to d/c home today. Pt has met inpatient goals. Will discharge from ST at this time. Reviewed with Patient Home Exercise Program Patient/Caregiver Understanding Fair Plan Amount of Therapy Recommended No Further Therapy Therapy Recommendations Discharge from Speech Therapy Reason for Discharge Goals met
--- NOTE | 2018-11-10 13:05 | P.DS_ITS ---
History of Present Illness Date Patient Seen: 11/10/18 Time Patient Seen: 13:02 Chief complaint: DIZZY Narrative: 78 y/o male presented to ED with dizziness/hypotension. Patient has a history of CABG, Chronic Atrial Fibrillation on coumadin, Hypertension, Hyperlipdemia, who is S/P TAVR (2017), CHF with an ejection fraction of 36%, polycythemia vera with thrombocytopena. He initially presented to [facility] ED for evaluation of hypotension and bradycardia one day prior to admission here. The patient was confused. He had 3 days of dizziness and lightheadedness. Patient was given one liter of fluid in the Emergency Department after evaluation found his heart rate of 49 and bp 90/70. He is followed by Dr. Jacobs and recently was started on metoprolol of 25 mg per day. Patient was admitted overnight and his metoprolol was decreased to 12.5 mg per day. The patient insisted on leaving the hospital the next morning and was therefore discharged home. He reports since returning home he has had diarrhea, some nausea, and persistant dizziness. He has had no shortness of breath or chest pain. He denies palpitaitons. He has not vomitted blood, or had bright red blood per rectum. He reports abdominal pain from his shingles. He has had no fever or chills, no dysuria, hematuria, or pyuria. Discharge Providers Date of admission: 11/05/18 10:59 Discharge Date: 11/10/18 Primary care physician: James Cheung MD Consults: 11/05/18 14:35 Consult to Occupational Therapy Evaluate & Treat Comment: Physician Instructions: Evaluate and treat Consult to Pharmacy Routine Comment: dose coumadin Consult to Physical Therapy Evaluate & Treat Comment: Physician Instructions: Evaluate and Treat 11/06/18 17:07 Consult to Speech Therapy Evaluate & Treat Comment: Physician Instructions: Evaluate and treat 11/06/18 18:02 Consult to Dietitian, Adult Routine Comment: Reason For Exam: EtOH Discharge provider: Latisha Gannon MD Summary Discharge Diagnosis: Symptomatic hypotension, Stable Acute alcohol WD, resolved Acute Type II demand ischemia, stable Chronic Afib Aortic Stenosis, s/p TAVR CAD s/p CABG Gilbert's Dz HLD Chronic systolic CHF Chronic memory loss, probable dementia related Cognitive impairment Hospital Course: In ED, patient was found to have elevated WBC at 13.3. His r epeat CT of the Head was unremarkable and his Chest Xray was negative. EKG revealed atrial fibrillation and an old HI. According to the family the patient is more confused than usual. In the Emergency department the patient's blood pressure dropped to 85 systolic with a heart rate of 130 when standing. He was admitted to the hospital for further evaluation of his hypotension. Once admitted, patient's BP medications were held completely. He was started on IVF hydration. His Diarrhea has subsequently resolved and no samples were obtained to further assess stool. His BP continued to improve and patient was no longer orthostatic. Troponins were midly elevated, likely due to demand ischemia. NM stress test performed and found negative for acute change, but with old defect. His BP medications subsequently restarted, but patient dropped BP again to 90/50 the morning of discharge. Therefore, he will be going home on decreased dose of metoprolol (12.5mg PO Daily) and Lisinopril will be disco ntinued until further notice. Patient was going to be discharged home after BP stabilization initially, however went into alcohol withdrawals and required stay at the hospital for detox. Once detoxed, patient received cognitive eval by speech, who found patient to be 20/30 score, consistent with cognitive impairment. Patient's family wished patient to be admitted to SNF however his admission was denied. Patient will be going home with family and possibly will be admitted to Assisted living the next morning. Exam Vital Signs (past 8 hours): - 11/10/18 07:45 11/10/18 08:06 11/10/18 09:22 Temperature 97.6 F Pulse Rate 91 H Pulse Rate [Orthostatic Lying] 94 H Pulse Rate [Orthostatic Sitting] 74 Pulse Rate [Orthostatic Standing] 87 Respiratory Rate 18 Blood Pressure 123/76 Blood Pressure [Orthostatic Lying] 83/40 L Blood Pressure [Orthostatic Sitting] 85/51 L Blood Pressure [Orthostatic Standing] 90/51 L Pulse Oximetry 96 96 Oxygen Delivery Method Room Air Oxygen Flow Rate 0 Narrative Exam Narrative: General: Elderly male in no acute distress. Cooperative. AAOx2 HEENT: Normocephalic, atraumatic. Pupils equal, round, and reactive to light. Moist mucosa. Neck: Supple with full range of motion. No lymphadenopathy. Cardiovascular: Regular rhythm, mildly tachycardic, without murmurs, rubs, or gallops appreciated. Pulmonary: Clear to auscultation bilaterally without crackles, wheezes, or rhonchi. Abdomen: Soft, bowel sounds present, nontender, nondistended. No hepatosplenomegaly. Extremities: Normal ROM. Skin: no rash, ulcers, or subcutaneous nodules appreciated. Neurological: Cranial nerves grossly intact. Psychiatric: Mood is appropriate and calm. Cognitive eval: Objective Labs Result Diagrams: 11/10/18 05:57 11/10/18 05:57 Labs: Laboratory Results - last 24 hr 11/10/18 11/10/18 11/10/18 05:57 05:57 05:57 WBC 7.7 RBC 5.47 Hgb 16.6 Hct 49.0 MCV 89.5 MCH 30.3 MCHC 33.8 RDW 13.6 Plt Count 117 L Neut % (Auto) 71.1 Lymph % (Auto) 16.7 L [place] % (Auto) 9.4 Eos % (Auto) 2.6 Baso % (Auto) 0.2 Neut # (Auto) 5400 Lymph # (Auto) 1300 [place] # (Auto) 700 Eos # (Auto) 200 Baso # (Auto) 0 PT 25.6 H INR 2.2 H Sodium 135 L Potassium 4.0 Chloride 102 Carbon Dioxide 26 BUN 17 Creatinine 0.90 Estimated GFR > 60.0 BUN/Creatinine Ratio 18.9 Glucose 87 Calcium 9.2 Discharge Plan Discharge Plan Discharge Problem: Hypotension due to medication, Dizziness Patient Disposition: Home Discharge Med Rec/Prescriptions Prescriptions: New metoprolol succinate 25 mg Tablet Extended Release 24 Hr 12.5 mg PO DAILY Qty: 30 RF: 0 Continued atorvastatin [Lipitor] 80 mg Tablet 80 mg PO QPM RF: 0 warfarin [Jantoven] 6 mg Tablet 6 mg PO 6XW RF: 0 ezetimibe 10 mg Tablet 10 mg PO DAILY RF: 0 Discontinued lisinopril 2.5 mg Tablet 2.5 mg PO DAILY RF: 0 metoprolol succinate 25 mg Tablet Extended Release 24 Hr 12.5 mg PO DAILY RF: 0 Follow up/Referrals: James Cheung MD [Primary Care Provider] - Provider Discharge Instructions Diet: Low-fat, Low-sodium and Low-cholesterol Discharge Data Primary Care Provider: James Cheung Attending Provider: Carolyn Vernon Admit Date/Time: 11/05/18 10:59
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
== END 2018-11-10 14:44 | disposition home or self-care (01) | DRG 315 ==
LOC: ED 10:55 → AC 11:19
PROVIDERS: Internal Medicine; Nurse Practitioner Adult Health; Admitting Provider Internal Medicine; Emergency Provider Emergency Medicine; PCP Internal Medicine; Visit Provider Internal Medicine
DX: I95.9 Hypotension, unspecified (principal); I50.22 Chronic systolic (congestive) heart failure; F10.230 Alcohol dependence with withdrawal, uncomplicated; I24.8 Other forms of acute ischemic heart disease; R19.7 Diarrhea, unspecified; E80.4 Gilbert syndrome; I48.2 Chronic atrial fibrillation; E86.9 Volume depletion, unspecified; D69.6 Thrombocytopenia, unspecified; D45 Polycythemia vera; Z79.01 Long term (current) use of anticoagulants; R41.0 Disorientation, unspecified
CPT/HCPCS: 36415; 36591; 70450; 70544; 70551; 71045; 76700; 78452; 80048; 80053; 81001; 81003; 82533; 82550; 82553; 83605; 83690; 83735; 83880; 84484; 85025; 85610; 85730; 87040; 87400; 93005; 93010; 93016; 93017; 93018; 93041; 94762; 96125; 96360; 96361; 97112; 97116; 97127; 97162; 97165; 97530; 99285; 99291; A9502; J0834; J1630; J2060; J2785

== ENCOUNTER 2018-11-14 01:07 | Emergency (ER) | payer MEDICARE, OTHER, SELFPAY ==
[2018-11-05 14:18] VITALS: BMI 23.6
[2018-11-14] VITALS (12 sets, daily range): BP systolic 117–147; BP diastolic 67–96; PULSE 68–119; RESP 12–24; TEMP 36.4–36.6; O2SAT 98–100; BMI 22.4
--- NOTE | 2018-11-14 01:12 | ED_ITS ---
HPI - Altered Mental Status General Chief Complaint: Dizziness Stated Complaint: [place] Time Seen by Provider: 11/14/18 01:12 Source: patient and EMS Mode of arrival: EMS Limitations: no limitations History of Present Illness HPI narrative: 78-year-old male nonsmoker with history of AFib, hypertension, diabetes, and hyperlipidemia presents with an episode of lightheadedness upon standing this morning. He got up to urinate and felt lightheaded and saw some vertical flashing lights. This caused him concern and he activated EMS. He denies any ongoing symptoms. He has no blurred vision, trouble with speech or focal neurologic findings. He is not currently dizzy. He denies chest pain or shortness of breath. He denies any medication change or use of alcohol or street drugs. He denies any injury and did not fall as result of his dizziness. Patient was recently admitted for hypotension due to medication on 11/05/18 and was DCd on 11/10/18 home. MD complaint: confusion Onset (ago): minute(s) Severity: mild Consistency of symptoms: unknown Associated symptoms: denies other symptoms Related Data Home Medications Medication Instructions Recorded Confirmed atorvastatin [Lipitor] 80 mg PO QPM 11/05/18 11/05/18 ezetimibe 10 mg PO DAILY 11/05/18 11/05/18 warfarin [Jantoven] 6 mg PO 6XW 11/05/18 11/05/18 Previous Rx's Medication Instructions Recorded metoprolol succinate 12.5 mg PO DAILY #30 tab 11/10/18 Allergies Allergy/AdvReac Type Severity Reaction Status Date / Time Penicillins Allergy Verified 11/05/18 07:44 Review of Systems Constitutional Denies chills, Denies fever(s), Denies lethargy and Denies weakness Eyes Denies change in vision, Denies eye discharge, Denies irritation and Denies loss of vision ENT Ears, Nose, Mouth, and Throat: Denies change in voice, Reports vertigo, Denies neck pain and Denies sore throat Cardiovascular Denies chest pain, Denies irregular heart rhythm, Denies lightheadedness, Denies palpitations, Denies dyspnea, Denies dyspnea on exertion and Denies orthopnea Respiratory Denies cough, Denies dyspnea, Denies dyspnea on exertion and Denies wheezing Gastrointestinal Gastrointestinal: Denies abdominal pain, Denies change in bowel habits, Denies diarrhea, Denies nausea and Denies vomiting Genitourinary Denies hematuria, Denies flank pain, Denies urinary incontinence and Denies urinary urgency Musculoskeletal Denies neck pain Integumentary/Breasts Denies pruritus, Denies erythema, Denies rash and Denies wounds Neurologic Denies confusion, Reports vertigo, Denies loss of vision and Denies weakness Psychiatric Denies anxiety, Denies confusion, Denies depression, Denies homicidal ideation and Denies suicidal ideation Endocrine Denies palpitations Hematologic/Lymphatic Denies easy bruising Allergic/Immunologic Denies wheezing Exam Narrative Exam Narrative: GENERAL: 78-year-old male appears stated age, in no obvious distress, GCS 15 HEAD: Atraumatic. Normocephalic. No temporal or scalp tenderness. EYES: Pupils equal round and reactive. Extraocular motions intact. No scleral icterus. No injection or drainage. ENT: Nose without bleeding, purulent drainage or septal hematoma. Throat without erythema, tonsillar hypertrophy or exudate. Uvula midline. Airway patent. NECK: Trachea midline. No JVD or lymphadenopathy. Supple, nontender, no meningeal signs. CARDIOVASCULAR: Regular rate and rhythm without murmurs, gallops, or rubs. RESPIRATORY: Clear to auscultation. Breath sounds equal bilaterally. No wheezes, rales, or rhonchi. GASTROINTESTINAL: Abdomen soft, non-tender, nondistended. No hepato- splenomegaly, or palpable masses. No guarding. EXTREMITIES: No clubbing, cyanosis, or edema. No joint tenderness, effusion, or edema noted. BACK: Nontender without deformity or crepitance. No flank tenderness. NEURO: AOx3. SKIN: No rash or erythema. Initial Vital Signs Initial Vital Signs: Vital Signs Temperature 97.8 F 11/14/18 01:05 Pulse Rate 119 H 11/14/18 01:05 Respiratory Rate 18 11/14/18 01:05 Blood Pressure 133/71 11/14/18 01:05 Pulse Oximetry 100 11/14/18 01:05 Course Orders Ordered: ED Orders 11/14/18 01:19 EKG-12 Lead Stat 11/14/18 01:20 CT head/brain wo con Stat XR chest 1V Stat 11/14/18 01:41 Acetaminophen Stat Complete Blood Count AUTO DIFF Stat Comprehensive Metabolic Panel Stat Ethanol (ETOH) Stat Lactate (Lactic Acid) Stat Partial Thromboplastin Time Stat Prolactin Stat Prothrombin Time INR Stat Salicylate Stat Thyroid Stimulating Hormone Stat Troponin I Stat 11/14/18 02:10 Blood Culture Stat 11/14/18 06:18 Urinalysis and Microscopic Stat Urine Culture Stat Urine Drug Screen, Rapid Stat Sodium Chloride (Normal Saline 0.9%) 1,000 mls @ 150 mls/hr IV CONT ANTONIA Last Admin: 11/14/18 02:12 Dose: 150 mls/hr Reevaluation(s) Reevaluation #1: patient continues to be asymptomatic. Resting comfortably. Calls to son and result in no answer. Time: 05:35 Consultations Consultation #1: call to again, no answer. Voicemail box full Friend Pierre [phone] reached, he is working, but Michelle ([phone]) will come see patient to lend some insight to his behavior to help establish if he's at baseline Time: 07:32 Consultation #2: Maurciio Mike [phone] is patient son and just called. He informed me that patient has dementia and was recently placed in an assisted living facility. The family moved him into this facility down [place] on Tuesday and the patient became upset and left, taking a cab back to his home in [place]. Mauricio states that my description of his father's behavior sounds at baseline but he will be appear late morning to see his dad and hopefully take him. Time: 07:43 Vital Signs - 8 hr 11/14/18 01:05 11/14/18 02:19 11/14/18 02:24 Temperature 97.8 F Pulse Rate 119 H 94 H Pulse Rate [Orthostatic Lying] 99 H Pulse Rate [Orthostatic Sitting] 116 H Pulse Rate [Orthostatic Standing] 101 H Respiratory Rate 18 21 Blood Pressure 133/71 Blood Pressure [Left Arm] 124/95 H Blood Pressure [Orthostatic Lying] 118/78 Blood Pressure [Orthostatic Sitting] 124/95 H Blood Pressure [Orthostatic Standing] 125/95 H Pulse Oximetry 100 100 11/14/18 02:30 11/14/18 03:00 11/14/18 03:30 Temperature Pulse Rate 99 H 100 H 105 H Pulse Rate [Orthostatic Lying] Pulse Rate [Orthostatic Sitting] Pulse Rate [Orthostatic Standing] Respiratory Rate 24 18 16 Blood Pressure Blood Pressure [Left Arm] 127/93 H 120/96 H 119/88 Blood Pressure [Orthostatic Lying] Blood Pressure [Orthostatic Sitting] Blood Pressure [Orthostatic Standing] Pulse Oximetry 98 11/14/18 04:00 11/14/18 04:30 11/14/18 05:30 Temperature Pulse Rate 107 H 109 H 98 H Pulse Rate [Orthostatic Lying] Pulse Rate [Orthostatic Sitting] Pulse Rate [Orthostatic Standing] Respiratory Rate 15 20 15 Blood Pressure Blood Pressure [Left Arm] 117/93 H 118/87 142/93 H Blood Pressure [Orthostatic Lying] Blood Pressure [Orthostatic Sitting] Blood Pressure [Orthostatic Standing] Pulse Oximetry 98 11/14/18 06:00 11/14/18 06:54 Temperature Pulse Rate 99 H 112 H Pulse Rate [Orthostatic Lying] Pulse Rate [Orthostatic Sitting] Pulse Rate [Orthostatic Standing] Respiratory Rate 17 24 Blood Pressure Blood Pressure [Left Arm] 126/67 147/87 H Blood Pressure [Orthostatic Lying] Blood Pressure [Orthostatic Sitting] Blood Pressure [Orthostatic Standing] Pulse Oximetry 98 MDM - Altered Mental Status Lab Data Result diagrams: 11/14/18 01:41 11/14/18 01:41 Lab Results 11/14/18 11/14/18 11/14/18 Range/Units 01:41 01:41 01:41 WBC 7.7 (4.5-11.0) X10^3/uL RBC 5.62 (4.5-5.9) X10^6/uL Hgb 17.0 (13.5-17.5) g/dL Hct 50.0 (41-53) % MCV 89.0 (80-100) fL MCH 30.3 (26-34) PG MCHC 34.0 (30-36) % RDW 13.8 (11.6-14.8) % Plt Count 131 L (150-400) X10^3/uL Neut % (Auto) 70.2 (50-75) % Lymph % (Auto) 17.9 L (25-40) % [place] % (Auto) 9.3 (3-14) % Eos % (Auto) 2.2 (2-4) % Baso % (Auto) 0.4 (0-2) % Neut # (Auto) 5400 (9798-0917) /uL Lymph # (Auto) 1400 (0633-7515) /uL [place] # (Auto) 700 (0-900) /uL Eos # (Auto) 200 (0-450) /uL Baso # (Auto) 0 (0-100) /uL PT 41.3 H D (10.1-12.7) SECONDS INR 3.5 H (0.9-1.3) APTT 44 H (26.4-36.2) SECONDS Sodium 138 (137-145) mmol/L Potassium 4.0 (3.4-5.1) mmol/L Chloride 103 (98-107) mmol/L Carbon Dioxide 25 (22-32) mmol/L BUN 20 (9-20) mg/dL Creatinine 0.90 (0.66-1.25) mg/dL Estimated GFR > 60.0 (>60) mL/min BUN/Creatinine Ratio 22.2 H (6-22) Glucose 98 (80-110) mg/dL Lactate (0.7-2.1) mmol/L Calcium 9.5 (8.4-10.2) mg/dL Total Bilirubin 1.8 H (0.2-1.3) mg/dL AST 41 (17-59) IU/L ALT 51 (21-72) IU/L Alkaline Phosphatase 59 (38-126) U/L Troponin I 0.063 H (0.01-0.034) ng/mL Total Protein 6.9 (6.3-8.2) g/dL Albumin 4.2 (3.5-5.0) g/dL Globulin 2.7 (1.7-4.1) g/dL Albumin/Globulin Ratio 1.6 (1.0-2.8) TSH (0.47-4.68) uIU/mL Prolactin 18.6 H (3.7-17.9) ng/mL Urine Color Urine Appearance Urine pH (4.5-8.0) Ur Specific [place] (1.000-1.035) Urine Protein (Negative) Urine Glucose (UA) (Negative) g/dL Urine Ketones (NEGATIVE) Urine Occult Blood (Negative) Urine Nitrate (Negative) Urine Bilirubin (NEGATIVE) Urine Urobilinogen (0.2) E.U./dL Ur Leukocyte Esterase (NEGATIVE) Urine RBC (0-5/HPF) Urine WBC (0-5/HPF) Ur Squamous Epith Cells Urine Bacteria (None) Ur Culture Indicated? Salicylates < 1.0 (<20) mg/dL Urine Opiates Screen (Negative) Ur Oxycodone Screen (Negative) Urine Methadone Screen (Negative) Acetaminophen < 10 L (10-30) ug/mL Ur Barbiturates Screen (Negative) U Tricyclic Antidepress (Negative) Ur Phencyclidine Scrn (Negative) Ur Amphetamines Screen (Negative) U Methamphetamines Scrn (Negative) Ur MDMA Scrn (Ecstasy) (Negative) U Benzodiazepines Scrn (Negative) Urine Cocaine Screen (Negative) U Marijuana (THC) Screen (Negative) Ethyl Alcohol < 10 mg/dL 11/14/18 11/14/18 11/14/18 Range/Units 01:41 01:41 06:18 WBC (4.5-11.0) X10^3/uL RBC (4.5-5.9) X10^6/uL Hgb (13.5-17.5) g/dL Hct (41-53) % MCV (80-100) fL MCH (26-34) PG MCHC (30-36) % RDW (11.6-14.8) % Plt Count (150-400) X10^3/uL Neut % (Auto) (50-75) % Lymph % (Auto) (25-40) % [place] % (Auto) (3-14) % Eos % (Auto) (2-4) % Baso % (Auto) (0-2) % Neut # (Auto) (4407-9594) /uL Lymph # (Auto) (3635-2019) /uL [place] # (Auto) (0-900) /uL Eos # (Auto) (0-450) /uL Baso # (Auto) (0-100) /uL PT (10.1-12.7) SECONDS INR (0.9-1.3) APTT (26.4-36.2) SECONDS Sodium (137-145) mmol/L Potassium (3.4-5.1) mmol/L Chloride (98-107) mmol/L Carbon Dioxide (22-32) mmol/L BUN (9-20) mg/dL Creatinine (0.66-1.25) mg/dL Estimated GFR (>60) mL/min BUN/Creatinine Ratio (6-22) Glucose (80-110) mg/dL Lactate 1.0 (0.7-2.1) mmol/L Calcium (8.4-10.2) mg/dL Total Bilirubin (0.2-1.3) mg/dL AST (17-59) IU/L ALT (21-72) IU/L Alkaline Phosphatase (38-126) U/L Troponin I (0.01-0.034) ng/mL Total Protein (6.3-8.2) g/dL Albumin (3.5-5.0) g/dL Globulin (1.7-4.1) g/dL Albumin/Globulin Ratio (1.0-2.8) TSH 2.84 (0.47-4.68) uIU/mL Prolactin (3.7-17.9) ng/mL Urine Color Urine Appearance Urine pH (4.5-8.0) Ur Specific [place] (1.000-1.035) Urine Protein (Negative) Urine Glucose (UA) (Negative) g/dL Urine Ketones (NEGATIVE) Urine Occult Blood (Negative) Urine Nitrate (Negative) Urine Bilirubin (NEGATIVE) Urine Urobilinogen (0.2) E.U./dL Ur Leukocyte Esterase (NEGATIVE) Urine RBC (0-5/HPF) Urine WBC (0-5/HPF) Ur Squamous Epith Cells Urine Bacteria (None) Ur Culture Indicated? Salicylates (<20) mg/dL Urine Opiates Screen Negative (Negative) Ur Oxycodone Screen Negative (Negative) Urine Methadone Screen Negative (Negative) Acetaminophen (10-30) ug/mL Ur Barbiturates Screen Negative (Negative) U Tricyclic Antidepress Negative (Negative) Ur Phencyclidine Scrn Negative (Negative) Ur Amphetamines Screen Negative (Negative) U Methamphetamines Scrn Negative (Negative) Ur MDMA Scrn (Ecstasy) Negative (Negative) U Benzodiazepines Scrn Negative (Negative) Urine Cocaine Screen Negative (Negative) U Marijuana (THC) Screen Negative (Negative) Ethyl Alcohol mg/dL 11/14/18 Range/Units 06:18 WBC (4.5-11.0) X10^3/uL RBC (4.5-5.9) X10^6/uL Hgb (13.5-17.5) g/dL Hct (41-53) % MCV (80-100) fL MCH (26-34) PG MCHC (30-36) % RDW (11.6-14.8) % Plt Count (150-400) X10^3/uL Neut % (Auto) (50-75) % Lymph % (Auto) (25-40) % [place] % (Auto) (3-14) % Eos % (Auto) (2-4) % Baso % (Auto) (0-2) % Neut # (Auto) (2898-9794) /uL Lymph # (Auto) (9990-3096) /uL [place] # (Auto) (0-900) /uL Eos # (Auto) (0-450) /uL Baso # (Auto) (0-100) /uL PT (10.1-12.7) SECONDS INR (0.9-1.3) APTT (26.4-36.2) SECONDS Sodium (137-145) mmol/L Potassium (3.4-5.1) mmol/L Chloride (98-107) mmol/L Carbon Dioxide (22-32) mmol/L BUN (9-20) mg/dL Creatinine (0.66-1.25) mg/dL Estimated GFR (>60) mL/min BUN/Creatinine Ratio (6-22) Glucose (80-110) mg/dL Lactate (0.7-2.1) mmol/L Calcium (8.4-10.2) mg/dL Total Bilirubin (0.2-1.3) mg/dL AST (17-59) IU/L ALT (21-72) IU/L Alkaline Phosphatase (38-126) U/L Troponin I (0.01-0.034) ng/mL Total Protein (6.3-8.2) g/dL Albumin (3.5-5.0) g/dL Globulin (1.7-4.1) g/dL Albumin/Globulin Ratio (1.0-2.8) TSH (0.47-4.68) uIU/mL Prolactin (3.7-17.9) ng/mL Urine Color Yellow Urine Appearance Clear Urine pH 5.0 (4.5-8.0) Ur Specific [place] >=1.030 H (1.000-1.035) Urine Protein 2+ H (Negative) Urine Glucose (UA) Negative (Negative) g/dL Urine Ketones 1+ H (NEGATIVE) Urine Occult Blood Negative (Negative) Urine Nitrate Negative (Negative) Urine Bilirubin Negative (NEGATIVE) Urine Urobilinogen 0.2 (0.2) E.U./dL Ur Leukocyte Esterase Negative (NEGATIVE) Urine RBC None seen (0-5/HPF) Urine WBC 1-5/hpf (0-5/HPF) Ur Squamous Epith Cells 1-5 /hpf Urine Bacteria Few (2-10) H (None) Ur Culture Indicated? Culture not indicate Salicylates (<20) mg/dL Urine Opiates Screen (Negative) Ur Oxycodone Screen (Negative) Urine Methadone Screen (Negative) Acetaminophen (10-30) ug/mL Ur Barbiturates Screen (Negative) U Tricyclic Antidepress (Negative) Ur Phencyclidine Scrn (Negative) Ur Amphetamines Screen (Negative) U Methamphetamines Scrn (Negative) Ur MDMA Scrn (Ecstasy) (Negative) U Benzodiazepines Scrn (Negative) Urine Cocaine Screen (Negative) U Marijuana (THC) Screen (Negative) Ethyl Alcohol mg/dL Discharge Plan Departure Patient Disposition: Home Clinical Impression: Dementia Qualifiers: Dementia type: unspecified type Dementia behavioral disturbance: with behavioral disturbance Qualified Code(s): F03.91 - Unspecified dementia with behavioral disturbance Instructions: Dementia Activity Restrictions/Additional Instructions: *You have been diagnosed with [ dizziness, mild dehydration, dementia ] *What to do: *Take medications as directed *Follow up with your primary care provider in 2-3 days, call for an appointment. Let them know you were seen in the Emergency Department and that we ask that you be seen in follow up *Return to ER if you should have any new, worsening or concerning symptoms, such as [ ] Prescriptions: No Action atorvastatin [Lipitor] 80 mg Tablet 80 mg PO QPM RF: 0 warfarin [Jantoven] 6 mg Tablet 6 mg PO 6XW RF: 0 ezetimibe 10 mg Tablet 10 mg PO DAILY RF: 0 metoprolol succinate 25 mg Tablet Extended Release 24 Hr 12.5 mg PO DAILY Qty: 30 RF: 0 Referrals: James Cheung MD [Primary Care Provider] -
--- NOTE | 2018-11-14 01:20 | DI.CT.S_ITS ---
PROCEDURE: CT HEAD/BRAIN WO CON INDICATIONS: dizziness, confusion, visual hallucinations TECHNIQUE: Noncontrast 4.5 mm thick angled axial sections acquired from the foramen magnum to the vertex, with coronal and sagittal reformats. For radiation dose reduction, the following was used: automated exposure control, adjustment of mA and/or kV according to patient size. COMPARISON: [facility], CT, CT HEAD/BRAIN WO CON, 11/05/2018, 7:36. FINDINGS: Image quality: Excellent. CSF spaces: Basal cisterns are patent. No extra-axial fluid collections. The ventricles are symmetric in size and shape. Brain: No intracranial bleeds or masses. There is cerebral volume loss for age, with resultant ventricular and sulcal prominence. There are periventricular and deep white matter chronic small vessel ischemic changes. There is intracranial internal carotid artery atherosclerosis. Skull and face: Calvarium and visualized facial bones appear intact, without suspicious lesions. Sinuses: Visualized sinuses and mastoids are clear. IMPRESSION: 1. No acute intracranial abnormalities. 2. Cerebral volume loss and chronic microvascular ischemic changes. No significant discrepancy with the tower loader operator radiology preliminary report. Dictated by: Julio C Braun M.D. on 11/14/2018 at 7:29 Approved by: Julio C Braun M.D. on 11/14/2018 at 7:31
--- NOTE | 2018-11-14 01:20 | DI.RAD.S_ITS ---
PROCEDURE: XR CHEST 1V INDICATIONS: dizziness TECHNIQUE: One view of the chest was acquired. COMPARISON: [facility], CR, XR CHEST 1V, 11/05/2018, 7:40. FINDINGS: Surgical changes and devices: Sternotomy and CABG. Lungs and pleura: Mild left suprahilar infiltrate. There is a 4 mm hyperdense nodular density in the left upper lung zone, most likely a small old granuloma. No pleural effusions or pneumothorax. Mediastinum: Mediastinal contours appear normal. Heart size is mildly increased. There is an aortic valve prosthesis. Bones and chest wall: No suspicious bony lesions. Overlying soft tissues appear unremarkable. IMPRESSION: 1. Mild left suprahilar infiltrate suspicious for pneumonia. 2. Mild cardiomegaly. 3. Remote granulomatous disease. Dictated by: Julio C Braun M.D. on 11/14/2018 at 9:30 Approved by: Julio C Braun M.D. on 11/14/2018 at 9:33
[2018-11-14 01:55] LABS: Add Manual Diff / Slide Review NO; Basophils Absolute Auto 0 /uL (0-100); Basophils Percent Auto 0.4 % (0-2); Eosinophils Absolute Auto 200 /uL (0-450); Eosinophils Percent Auto 2.2 % (2-4); Lymphocytes Absolute Auto 1400 /uL (1100-4500); Lymphocytes Percent Auto 17.9 % (25-40); Mean Corpuscular Hemoglobin 30.3 PG (26-34); Monocytes Absolute Auto 700 /uL (0-900); Monocytes Percent Auto 9.3 % (3-14); Neutrophils Absolute Auto 5400 /uL (1500-7000); Neutrophils Percent Auto 70.2 % (50-75); Platelet Count 131 X10^3/uL (150-400); Red Blood Cell Count 5.62 X10^6/uL (4.5-5.9); Red Cell Distribution Width 13.8 % (11.6-14.8); White Blood Cell Count 7.7 X10^3/uL (4.5-11.0)
[2018-11-14 01:56] LABS: HEMOLYSIS 16 (0-50)
[2018-11-14 01:58] LABS: INR 3.5 (0.9-1.3); Prothrombin Time 41.3 SECONDS (10.1-12.7)
[2018-11-14 02:00] LABS: PTT Partial Thromboplastin Tim 44 SECONDS (26.4-36.2)
[2018-11-14 02:03] LABS: Alanine Aminotransferase 51 IU/L (21-72); Albumin 4.2 g/dL (3.5-5.0); Albumin Globulin Ratio 1.6 (1.0-2.8); Alkaline Phosphatase 59 U/L (38-126); Aspartate Aminotransferase 41 IU/L (17-59); BUN Creatinine Ratio 22.2 (6-22); Bilirubin Total 1.8 mg/dL (0.2-1.3); Blood Urea Nitrogen 20 mg/dL (9-20); Calcium 9.5 mg/dL (8.4-10.2); Carbon Dioxide 25 mmol/L (22-32); Chloride 103 mmol/L (98-107); Estimated Glomerular Filt Rate > 60.0 mL/min (>60); Globulin 2.7 g/dL (1.7-4.1); Glucose 98 mg/dL (80-110); Sodium 138 mmol/L (137-145); Total Protein 6.9 g/dL (6.3-8.2)
[2018-11-14] MEDS: SODIUM CHLORIDE 0.9% 1,000 ML 150 ML IV (02:12)
[2018-11-14 02:13] LABS: Acetaminophen < 10 ug/mL (10-30)
[2018-11-14 02:14] LABS: Troponin I 0.063 ng/mL (0.01-0.034)
[2018-11-14 02:25] LABS: Salicylate < 1.0 mg/dL (<20)
[2018-11-14 02:31] LABS: Prolactin 18.6 ng/mL (3.7-17.9)
[2018-11-14 02:39] LABS: Ethanol (ETOH) < 10 mg/dL
[2018-11-14 02:54] LABS: Thyroid Stimulating Hormone 2.84 uIU/mL (0.47-4.68)
[2018-11-14 06:26] LABS: RBC Urine None Seen (0-5/HPF)
[2018-11-14 06:27] LABS: Appearance Urine UA CLEAR; Bilirubin Urine UA NEGATIVE (NEGATIVE); Color Urine UA YELLOW; Glucose Urine UA NEGATIVE (Negative); Ketones Urine UA 1+ (NEGATIVE); Leukocyte Esterase Urine UA NEGATIVE (NEGATIVE); Nitrite Urine UA NEGATIVE (Negative); Occult Blood Urine UA NEGATIVE (Negative); Protein Urine UA 2+ (Negative); Specific Gravity Urine UA >=1.030 (1.000-1.035); Urobilinogen Urine UA 0.2 E.U./dL (0.2)
[2018-11-14 06:44] LABS: Urine Amphetamines Negative (Negative); Urine Barbiturates Negative (Negative); Urine Benzodiazepines Negative (Negative); Urine Cocaine Negative (Negative); Urine MDMA Negative (Negative); Urine Methadone Negative (Negative); Urine Methamphetamines Negative (Negative); Urine Morphine/Opi cutoff 2000 Negative (Negative); Urine Oxycodone Negative (Negative); Urine Phencyclidine Negative (Negative); Urine Tetrahydrocannabinol Negative (Negative); Urine Tricyclic Antidepressant Negative (Negative)
[2018-11-14 07:11] LABS: Bacteria Urine Few (2-10); Squamous Epithelial Cell Urine 1-5 /HPF; WBC Urine 1-5/HPF (0-5/HPF)
--- NOTE | 2018-11-28 07:22 | PC.NURSE ---
late entry. fluids infused 0730. 1000 mls NS.
== END 2018-11-14 11:12 | disposition home or self-care (01) ==
PROVIDERS: Emergency Provider Emergency Medicine; PCP Internal Medicine
DX: R42 Dizziness and giddiness (principal); E86.0 Dehydration; F03.91 Unspecified dementia, unspecified severity, with behavioral disturbance
CPT/HCPCS: 36415; 36591; 70450; 71045; 80053; 80305; 80320; 80329; 81001; 83605; 84146; 84443; 84484; 85025; 85610; 85730; 87040; 87077; 87086; 87186; 93005; 96360; 96361; 99285; G0480

== ENCOUNTER 2018-11-16 14:20 | Inpatient (IN) | payer MEDICARE, OTHER, SELFPAY ==
[2018-11-05 14:18] VITALS: BMI 23.6
[2018-11-16] VITALS (12 sets, daily range): BP systolic 114–167; BP diastolic 67–109; PULSE 60–140; RESP 16–22; TEMP 36.6–36.7; O2SAT 96–100; BMI 22.6
--- NOTE | 2018-11-16 | DI.RAD.S_ITS ---
PROCEDURE: XR CHEST 1V INDICATIONS: r/o PNA, HF TECHNIQUE: One view of the chest was acquired. COMPARISON: [facility], CR, XR CHEST 1V, 11/14/2018, 1:22. FINDINGS: Surgical changes and devices: Multiple median sternotomy wires are in place. Postoperative changes from previous revascularization procedure. Stent device projects over the heart. Lungs and pleura: Previously noted left perihilar opacity is not well-visualized on today's study. There is diffuse interstitial prominence and suggestion of mild cephalization of the pulmonary vasculature. No pleural effusions or pneumothorax. Mediastinum: Cardiomediastinal contours appear stable with prominence of the cardiac silhouette Bones and chest wall: No suspicious bony lesions. Overlying soft tissues appear unremarkable. IMPRESSION: Diffuse interstitial prominence with suggestion of cephalization of the pulmonary vasculature. Findings may be related to pulmonary edema. Infectious process not excluded although previously described left perihilar opacity is less conspicuous on today's study. No substantial pleural effusion identified. Dictated by: Zheng Rangel M.D. on 11/16/2018 at 20:51 Approved by: Zheng Rangel M.D. on 11/16/2018 at 20:54
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
[2018-11-16] MEDS: SODIUM CHLORIDE 0.9% 1,000 ML 125 ML IV (15:28)
[2018-11-16 16:17] LABS: Add Manual Diff / Slide Review NO; Basophils Absolute Auto 100 /uL (0-100); Basophils Percent Auto 0.8 % (0-2); Eosinophils Absolute Auto 100 /uL (0-450); Hematocrit 52.7 % (41-53); Hemoglobin 17.6 g/dL (13.5-17.5); Lymphocytes Absolute Auto 1800 /uL (1100-4500); Mean Corpuscular HGB Conc 33.4 % (30-36); Mean Corpuscular Hemoglobin 30.2 PG (26-34); Mean Corpuscular Volume 90.6 fL (80-100); Monocytes Absolute Auto 1000 /uL (0-900); Monocytes Percent Auto 8.5 % (3-14); Neutrophils Absolute Auto 8900 /uL (1500-7000); Neutrophils Percent Auto 74.7 % (50-75); Platelet Count 140 X10^3/uL (150-400); Red Blood Cell Count 5.81 X10^6/uL (4.5-5.9); Red Cell Distribution Width 13.6 % (11.6-14.8)
[2018-11-16 16:27] LABS: PTT Partial Thromboplastin Tim 44 SECONDS (26.4-36.2)
[2018-11-16 16:28] LABS: Blood Urea Nitrogen 18 mg/dL (9-20); Calcium 9.6 mg/dL (8.4-10.2); Carbon Dioxide 29 mmol/L (22-32); Chloride 103 mmol/L (98-107); Estimated Glomerular Filt Rate > 60.0 mL/min (>60); Glucose 85 mg/dL (80-110); Potassium 4.2 mmol/L (3.4-5.1); Sodium 141 mmol/L (137-145)
[2018-11-16 16:29] LABS: HEMOLYSIS < 15 (0-50)
[2018-11-16] MEDS: METOPROLOL ER 25 MG TABLET PO (17:14)
--- NOTE | 2018-11-16 18:14 | PC.NURSE ---
after MD spoke with pt.. pt got up , call ayon in reach. pulled all of his chest leads off and ripped out his iv. Cleaned pt up and assisted back to bed to place another iv. dr. wiley aware and came to bedside.
[2018-11-16] MEDS: dilTIAZem 5 MG/ML SDV 10 MG IV (18:27)
[2018-11-16 18:46] LABS: Ethanol (ETOH) < 10 mg/dL
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
--- NOTE | 2018-11-16 22:02 | PC.NURSE ---
Addendum entered by Marlena Interiano R.N. 11/16/18 22:14: 2210 - Patient stood at bedside with PUSH BUTTON SWITCH ASSEMBLER to urinate. Refused to take pants off for skin check. Original Note: 2144 - Patient admitted to room 102. Brought over on stretcher by nursing staff. Able to transfer to bed with 1 person assist. Alert and oriented, but noted to be impulsive. Denies pain at this time. Oriented to room and call light, call light within reach.
[2018-11-16 23:01] LABS: Bacteria Urine None Seen; WBC Urine None Seen (0-5/HPF)
[2018-11-16 23:05] LABS: Appearance Urine UA CLEAR; Bilirubin Urine UA NEGATIVE (NEGATIVE); Color Urine UA YELLOW; Glucose Urine UA NEGATIVE (Negative); Ketones Urine UA NEGATIVE (NEGATIVE); Leukocyte Esterase Urine UA NEGATIVE (NEGATIVE); Nitrite Urine UA NEGATIVE (Negative); Occult Blood Urine UA 3+ (Negative); Protein Urine UA 2+ (Negative); Specific Gravity Urine UA >=1.030 (1.000-1.035); pH Urine UA 5.5 (4.5-8.0)
[2018-11-16 23:15] LABS: Culture Indicated Urine Cult Not Indicated; RBC Urine >100/HPF (0-5/HPF)
[2018-11-16 23:48] LABS: Procalcitonin < 0.05 ng/mL (<0.5)
--- NOTE | 2018-11-16 23:54 | PC.NURSE ---
Refused to be assessed, refused VS, asked what day it is, and argued over that. Asked me to open the band on his watch then jerked it back as if I was taking it.
[2018-11-17] VITALS (11 sets, daily range): BP systolic 114–145; BP diastolic 74–102; PULSE 70–108; RESP 16–22; TEMP 36.2–36.7; O2SAT 94–100
[2018-11-17] MEDS: SODIUM CHLORIDE 0.9% 1,000 ML 100 ML IV (00:52)
--- NOTE | 2018-11-17 01:20 | PC.NURSE ---
Addendum entered by Desi Rossi R.N. 11/17/18 06:53: Pacing in and out of room. Original Note: Addendum entered by Desi Rossi R.N. 11/17/18 06:30: One lying BP obtained, and no weight. Original Note: Addendum entered by Desi Rossi R.N. 11/17/18 06:25: Woke at 0555 was climbing out of bed, asked if I could help he said yes, I asked if I could do some blood pressures he said yes, then started leaving room, security was called, he dc'd own IV cath intact and bled on floor as he would not allow me to touch him, finally agreed to a piece of tape and went back to his room after security arrived. He has DC'd monitors, and IV's, is non-compliant with any requests for care, provider called by co-ordinator Tamara. Original Note: Addendum entered by Desi Rossi R.N. 11/17/18 02:52: Allowed VS this time, voided and UA sent noted blood drops around top of urinal, pt would NOT let me see his person. Original Note: Confused as to date and time, questions why is that black? explained it is the tv and it's off his response was I don't want it on. Pt told me the time was wrong as he was looking at the information systems audit manager, explained that was his heart rate.
[2018-11-17 02:53] LABS: Bacteria Urine None Seen; WBC Urine None Seen (0-5/HPF)
[2018-11-17 02:54] LABS: Appearance Urine UA CLEAR; Bilirubin Urine UA NEGATIVE (NEGATIVE); Color Urine UA YELLOW; Glucose Urine UA NEGATIVE (Negative); Ketones Urine UA TRACE (NEGATIVE); Leukocyte Esterase Urine UA NEGATIVE (NEGATIVE); Nitrite Urine UA NEGATIVE (Negative); Occult Blood Urine UA 2+ (Negative); Protein Urine UA 1+ (Negative); Specific Gravity Urine UA >=1.030 (1.000-1.035); Urobilinogen Urine UA 0.2 E.U./dL (0.2)
[2018-11-17 03:13] LABS: RBC Urine 0-1/HPF (0-5/HPF)
[2018-11-17 03:14] LABS: Culture Indicated Urine Cult Not Indicated
[2018-11-17 05:53] LABS: BUN Creatinine Ratio 17.8 (6-22); Blood Urea Nitrogen 16 mg/dL (9-20); Calcium 9.1 mg/dL (8.4-10.2); Carbon Dioxide 25 mmol/L (22-32); Chloride 107 mmol/L (98-107); Estimated Glomerular Filt Rate > 60.0 mL/min (>60); Glucose 83 mg/dL (80-110); HEMOLYSIS < 15 (0-50); Potassium 4.1 mmol/L (3.4-5.1); Sodium 140 mmol/L (137-145)
[2018-11-17 06:14] LABS: B Type Natriuretic Peptide 202 (<100)
[2018-11-17] MEDS: HALOPERIDOL 5 MG/ML VIAL IM (07:08)
--- NOTE | 2018-11-17 07:35 | PC.NURSE ---
upon arrival to icu floor pt found to be paranoid and pacing about in room and out in hallways- his voice rising in a challenging manner to security solutions engineer and surrounding staff- Dr. Cool arrived and spoke with pt as she was somewhat familiar with him. Denita Alatorre called and great response to surround pt and guide him to ed- where report given to staff from .- PERSONAL BELONGINGS SENT FROM ICU TO ED
[2018-11-17] MEDS: LORazepam 2 MG/ML SYRINGE IV (08:20)
--- NOTE | 2018-11-17 08:27 | PC.NURSE ---
pt arousable to voice, pt able to follow commands with guided direction. pt drowsy, confused, at times asking appropriate questions, for example what was his tempature when slasher hand explained he was checking his temp. pt rolled to back and allowed staff to get vital signs and start IV. per ciwa protocol 2mg IV ativan administered. provided pt with warm blankets, pt appears happy for the comfort measures.
[2018-11-17 08:32] LABS: Add Manual Diff / Slide Review NO; Basophils Absolute Auto 0 /uL (0-100); Basophils Percent Auto 0.4 % (0-2); Eosinophils Absolute Auto 100 /uL (0-450); Eosinophils Percent Auto 1.5 % (2-4); Hematocrit 49.3 % (41-53); Hemoglobin 16.6 g/dL (13.5-17.5); Lymphocytes Absolute Auto 1200 /uL (1100-4500); Lymphocytes Percent Auto 14.1 % (25-40); Mean Corpuscular HGB Conc 33.7 % (30-36); Mean Corpuscular Hemoglobin 30.5 PG (26-34); Mean Corpuscular Volume 90.5 fL (80-100); Monocytes Absolute Auto 600 /uL (0-900); Monocytes Percent Auto 6.9 % (3-14); Neutrophils Absolute Auto 6300 /uL (1500-7000); Neutrophils Percent Auto 77.1 % (50-75); Platelet Count 120 X10^3/uL (150-400); Red Blood Cell Count 5.45 X10^6/uL (4.5-5.9); Red Cell Distribution Width 13.4 % (11.6-14.8); White Blood Cell Count 8.2 X10^3/uL (4.5-11.0)
[2018-11-17 08:39] LABS: INR 2.7 (0.9-1.3); Prothrombin Time 32.1 SECONDS (10.1-12.7)
[2018-11-17 08:42] LABS: Alanine Aminotransferase 46 IU/L (21-72); Albumin 4.1 g/dL (3.5-5.0); Albumin Globulin Ratio 1.4 (1.0-2.8); Alkaline Phosphatase 57 U/L (38-126); Aspartate Aminotransferase 43 IU/L (17-59); BUN Creatinine Ratio 17.8 (6-22); Bilirubin Total 3.3 mg/dL (0.2-1.3); Blood Urea Nitrogen 16 mg/dL (9-20); Calcium 9.2 mg/dL (8.4-10.2); Carbon Dioxide 27 mmol/L (22-32); Chloride 104 mmol/L (98-107); Estimated Glomerular Filt Rate > 60.0 mL/min (>60); Globulin 2.9 g/dL (1.7-4.1); Glucose 91 mg/dL (80-110); HEMOLYSIS < 15 (0-50); Magnesium 1.8 mg/dL (1.6-2.3); Potassium 3.8 mmol/L (3.4-5.1); Sodium 142 mmol/L (137-145)
[2018-11-17 08:43] LABS: Ammonia (NH3) < 9.0 umol/L (9-30)
--- NOTE | 2018-11-17 08:50 | PC.NURSE ---
pt arousable to voice. pt laying flat on back sleeping, covered with blankets. observed rise and fall of chest.
[2018-11-17 08:53] LABS: Troponin I 0.059 ng/mL (0.01-0.034)
--- NOTE | 2018-11-17 09:36 | PC.NURSE ---
patient is calm, lying down sleeping on mattress
--- NOTE | 2018-11-17 10:00 | PC.NURSE ---
patient still sleeping peacefully
--- NOTE | 2018-11-17 11:11 | PC.NURSE ---
patient sleeping on mat
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
--- NOTE | 2018-11-17 11:53 | PC.NURSE ---
pt refusing water. arousal to voice.
--- NOTE | 2018-11-17 11:54 | PC.NURSE ---
pt arousable to voice, yawning and smiling, with eyes closed. multiple attempts to assist pt to sit up right for lunch. pt refusing, not using verbal communication, but is pushing against us and pulling away from assistance. pt appears to be awake but not wanting to follow directions at this time.
--- NOTE | 2018-11-17 12:43 | PC.NURSE ---
Pt awake and sitting up. Calling EXTRACORPOREAL TECHNICIAN now
--- NOTE | 2018-11-17 13:34 | PC.NURSE ---
Got patient up to use the bathroom and eat lunch, patient is now sitting up in reclining chair with his food in front of him. He is still a bit sleepy and not excited about eating.
--- NOTE | 2018-11-17 13:35 | PC.NURSE ---
patient still sleeping on mattress
--- NOTE | 2018-11-17 13:37 | PC.NURSE ---
patient attempting to urinate, but his privates are swollen and very much agitated.
--- NOTE | 2018-11-17 15:04 | PC.NURSE ---
patient talking with DCR now
--- NOTE | 2018-11-17 15:20 | PC.NURSE ---
patient sitting in chair, not talking much
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
--- NOTE | 2018-11-17 16:02 | PC.NURSE ---
patient was sitting in the chair, decided to urinate into a chip bag.Patient having a hard time emptying his bladder, RN attempting to cath.
[2018-11-17 16:31] LABS: Urine Amphetamines Negative (Negative); Urine Barbiturates Negative (Negative); Urine Cocaine Negative (Negative); Urine MDMA Negative (Negative); Urine Methamphetamines Negative (Negative); Urine Morphine/Opi cutoff 2000 Negative (Negative); Urine Phencyclidine Negative (Negative); Urine Tetrahydrocannabinol Negative (Negative)
[2018-11-17 16:32] LABS: Urine Benzodiazepines Negative (Negative); Urine Methadone Negative (Negative); Urine Oxycodone Negative (Negative); Urine Tricyclic Antidepressant Negative (Negative)
--- NOTE | 2018-11-17 16:41 | PC.NURSE ---
assisted nurse with in & out catheter, then patient C/O being uncomfortable in the reclining chair. The nurse and I took the suicidal mat out of the room, cleaned incontinent urine off the floor, and put a more comfortable gurney into the room. Patient is happy with the new bed, resting comfortably with ice pack on his privates.
[2018-11-17] MEDS: HALOPERIDOL 5 MG TABLET PO (17:27)
[2018-11-17] MEDS: ATORVASTATIN 20 MG TABLET 80 MG PO (17:27)
[2018-11-17] MEDS: WARFARIN 3 MG TABLET 6 MG PO (17:28)
--- NOTE | 2018-11-17 18:13 | PC.NURSE ---
Pt got up and exited room, walked around hallway until intercepted by staff and redirected pt back to room and into bed. Snacks and water were offered and pt agreed to them. Pt calm and cooperative.
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
--- NOTE | 2018-11-17 18:43 | PC.NURSE ---
pt provided with magazines in attempt to redirect pt from insisting he was going to leave
--- NOTE | 2018-11-17 19:06 | PC.NURSE ---
pt attempted to urinate and couldnt. Rn aware
--- NOTE | 2018-11-17 19:28 | PC.NURSE ---
asked to medicate pt by Trini DONALD. Pt is getting more agitated she stated. Sitter at bedside if asking for help having difficulty keeping pt in room. Order checked for 1mg iv ativan by nolvia MATIAS every four hours as needed.
[2018-11-17] MEDS: LORazepam 2 MG/ML SYRINGE 1 MG IV (19:31)
--- NOTE | 2018-11-17 19:35 | PC.NURSE ---
when pt was approached to have his bladder scanned he refused saying, theres no way thats going to happen again, I will not allow it. Get it away from me. Shortly after pt got out of bed insisting that he was going to leave and that everybody needs to get out of his way. RN was notified and ativan was administered in order to calm him. Pt is laying on bed, calm.
--- NOTE | 2018-11-17 19:56 | CM.SWNOTE ---
ED DISPATCH MACHINE RUNNER NOTE: Presenting Problem: Pt has been seen several times this week by JILL. He has been hospitalized in the ICU and only in the ED at this time due to his aggression. Pt has not been evaluated by this PLANT MAINTENANCE MANAGER, but was evaluated by DCR. It was stated that pt could not be detained due to not meeting the criteria. He did not have a qualifying diagnosis. Barriers to discharge: Family has stated that pt is in need of a secured memory unit, but when they tried in the [place], he did not meet criteria as he was able to pass the mental status exam. Pt's daughter stated that he memorizes the date and day so is able to respond appropriately to questions asked. Daughter was open to resources, but said they the family would be unable to get him there and if they were able to place him, he would become so violent that police would need to be contacted. Daughter also informed SW that the neighbors have become increasingly frightened of patient so are not an available resource. PT's spouse is POA. Daughter is Secondary. They will be bringing in a copy of the paperwork. Plan: It is expected that pt will d/c to his home tomorrow if he does not meet medical necessity for hospitalization. It may be important for family to begin to consider guardianship or to contact APS to begin to explore this process. Discharge Planning/Care Management ED Crisis Response Assessment Start: 11/17/18 18:36 Freq: Status: Active Protocol: Document 11/17/18 19:25 BG (Rec: 11/17/18 19:37 BG [id number]) ED Crisis Response Assessment DISPATCH MACHINE RUNNER Assessment Type Substance Abuse Other Reason for DISPATCH MACHINE RUNNER Referral Mr Manrique is a pt in the ICU, became agressive and was brought to the ED. DISPATCH MACHINE RUNNER was asked to contact family and provide information about looked memory care facilities. Document 11/17/18 19:42 BG (Rec: 11/17/18 19:56 BG [id number]) ED Crisis Response Assessment DISPATCH MACHINE RUNNER Assessment Type Substance Abuse Other Reason for DISPATCH MACHINE RUNNER Referral Mr Manrique is a pt of Dr Cool'alicia who had been in the ICU, but was transfered to [facility]. He is currently in the ED and will be remaining here this evening. DISPATCH MACHINE RUNNER was asked to contact family to provide resources. Referred by ED staff and Dr Cool Presenting Problem Pt is an 78 yo male. 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 According to pt's daughter, Kassy Meraz [phone], pt has been agressive throughout her life. He was described as a physically violent man whether he was abusing ETOH or not. She reported that both at [facility] and when he became volatile it took several police officers to sedate patient. Pt's shelia stated that she was open to taking information from regarding memory care places, but wondered how they would be able to get him to a facility since he has not been agreeablel to this. Mental health diagnosis Pt has a dx of dementia and a long hx of substance abuse Current Risk factors Substance abuse Aggressive tendencies Marital and family difficulties Risk factor comments Pt lives alone as family is no longer willing or able to contend with his agression. They are however involved and daughter said she and her mother would go to the house, get the TV set up and put his favorite foods in the refrigerator. DISPATCH MACHINE RUNNER contacted daughter twice this evening and informed her that according to Dr Cool, pt woudl not be discharged tomorrow until noon or after. Relevant Medical History Dementia, UTI, brain injury Crisis Plan In progress, but plan at this time is for dischartge tomorrow once evaluated by Dr Cool. Daughter i nformed DISPATCH MACHINE RUNNER that her mtoerh Shira Manrique is POA and she is secondary. Pt's spouse is hard of hearing so prefers daughter to be the one contacted. ED Mental Health Evaluation Status Start: 11/17/18 11:57 Freq: Status: Active Protocol: Document 11/17/18 17:06 [facility] (Rec: 11/17/18 17:06 [facility] [id number]) Mental Health Evaluation Status Mental Health Evaluation Status Complete Date 11/17/18 Approximate Time of Arrival 16:00 [facility] Name Tabatha Completion Date 11/17/18 Completion Time 17:06 Planned Disposition undetainable ED Psychiatric Symptoms Assessment Start: 11/17/18 11:57 Freq: Status: Active Protocol: Document 11/17/18 11:57 [facility] (Rec: 11/17/18 12:03 [facility] [id number]) Psychiatric Symptoms Assessment Symptoms/Complaint resistive, uncooperative. Duration Getting Worse History Of Same Yes Context Unknown Improves With Medication Worsens With Nothing Associated Psychiatric Symptoms None Associated Symptoms Confusion Details of Plan pt arousable to voice, pt not opening eyes but continues to pull away from us, yawn and smile inappropriatly. pt calm , and remains laying on bed. Level of Consciousness Alert Drowsy Patient Behavior/Mood Confused Uncooperative Ability to Follow Directions Poor Patient Cognition Impaired Yes Affect Description Calm Relaxed Patient Appearance Bizarre Document 11/17/18 17:07 [facility] (Rec: 11/17/18 17:11 [facility] [id number]) Psychiatric Symptoms Assessment Symptoms/Complaint Altered Mental Status Duration Changing Over Time History Of Same Yes Context Unknown Improves With Medication Worsens With Nothing Associated Psychiatric Symptoms None Associated Symptoms Confusion Details of Plan pt calm and cooperative. pt allowed bladder scan and in and out catheter. pt allowed dr narvaez to apply lidocaine jelly wrap tip of penis in guaze and apply pressure in attempt to reduce swelling to facilitate forskin extend over tip of penis. procedure was successful.
--- NOTE | 2018-11-17 20:06 | PC.NURSE ---
LONA Vang is in room with pt to evaluate him after fall.
--- NOTE | 2018-11-17 21:45 | P.PN_ITS ---
Subjective Date Patient Seen: 11/17/18 Interval history: Jorge Manrique is an 78-year-old male with past medical history significant for CAD status post CABG, chronic atrial fibrillation on Coumadin, hypertension, h yperlipidemia, CHF with EF of 36%, polycythemia vera with thrombocytopenia, and aortic stenosis status post TAVR who was admitted for unsteadiness and dizziness. The patient had significant episode of agitation this morning requiring security to be involved initially. He continued to escalate and a code howe was called in which he was escorted to the emergency department for isolation room. Rhiannon mical restraint was attempted with IM Haldol 5 mg x1 and Ativan 2 mg x1 with significant improvement. Contacting DCR for possible geriatric Psychiatric hold. Exam Vital Signs (past 8 hours): - 11/17/18 16:27 11/17/18 19:57 Pulse Rate 88 82 Respiratory Rate 18 18 Blood Pressure [Right Arm] 141/85 H Pulse Oximetry 99 96 Oxygen Delivery Method Room Air Oxygen Flow Rate 0 Narrative Exam Narrative: General: Elderly male lying in bed and in no acute distress, well-developed, well-nourished, agitated and combative.. HEENT: Normocephalic, atraumatic. External ears without defect. Pupils equal, round, and reactive to light. Anicteric sclerae, moist conjunctivae, and no lid lag. Oropharynx free of erythema and cobble stoning with dry mucosa. Neck: Supple with full range of motion. No lymphadenopathy or thyromegaly. Cardiovascular: Regular rhythm, mildly tachycardic, without murmurs, rubs, or gallops appreciated. Pulmonary: Clear to auscultation bilaterally without crackles, wheezes, or rhonchi. Normal respiratory effort with no use of accessory muscles. Abdomen: Soft, bowel sounds present, nontender, nondistended. No hepatosplenomegaly or masses appreciated. Extremities: No clubbing, cyanosis, or edema. Skin: Normal temperature, turgor, and texture; no rash, ulcers, or subcutaneous nodules appreciated. Neurological: Cranial nerves grossly intact. Psychiatric: Patient has aggressive behavior with agitation. Possible hallucinations. Formication. Repetitive tongue motion. Dementia at baseline. Objective Labs Result Diagrams: 11/17/18 08:25 11/17/18 08:25 Labs: Laboratory Results - last 24 hr 11/16/18 11/16/1819 16:10 16:14 21:40 WBC RBC Hgb Hct MCV MCH MCHC RDW Plt Count Neut % (Auto) Lymph % (Auto) Bosque % (Auto) Eos % (Auto) Baso % (Auto) Neut # (Auto) Lymph # (Auto) Bosque # (Auto) Eos # (Auto) Baso # (Auto) PT INR Sodium 141 Potassium 4.2 Chloride 103 Carbon Dioxide 29 BUN 18 Creatinine 1.00 Estimated GFR > 60.0 BUN/Creatinine Ratio 18.0 Glucose 85 Calcium 9.6 Magnesium 2.0 Total Bilirubin AST ALT Alkaline Phosphatase Ammonia Troponin I B-Natriuretic Peptide Total Protein Albumin Globulin Albumin/Globulin Ratio Procalcitonin < 0.05 Urine Color Urine Appearance Urine pH Ur Specific Nickerson Urine Protein Urine Glucose (UA) Urine Ketones Urine Occult Blood Urine Nitrate Urine Bilirubin Urine Urobilinogen Ur Leukocyte Esterase Urine RBC Urine WBC Urine Bacteria Ur Culture Indicated? Nasal Screen MRSA (PCR) Negative for mrsa Urine Opiates Screen Ur Oxycodone Screen Urine Methadone Screen Ur Barbiturates Screen U Tricyclic Antidepress Ur Phencyclidine Scrn Ur Amphetamines Screen U Methamphetamines Scrn Ur MDMA Scrn (Ecstasy) U Benzodiazepines Scrn Urine Cocaine Screen U Marijuana (THC) Screen 11/16/18 11/17/18 11/17/18 22:50 02:52 04:48 WBC RBC Hgb Hct MCV MCH MCHC RDW Plt Count Neut % (Auto) Lymph % (Auto) Bosque % (Auto) Eos % (Auto) Baso % (Auto) Neut # (Auto) Lymph # (Auto) Bosque # (Auto) Eos # (Auto) Baso # (Auto) PT INR Sodium 140 Potassium 4.1 Chloride 107 Carbon Dioxide 25 BUN 16 Creatinine 0.90 Estimated GFR > 60.0 BUN/Creatinine Ratio 17.8 Glucose 83 Calcium 9.1 Magnesium Total Bilirubin AST ALT Alkaline Phosphatase Ammonia Troponin I B-Natriuretic Peptide Total Protein Albumin Globulin Albumin/Globulin Ratio Procalcitonin Urine Color Yellow Yellow Urine Appearance Clear Clear Urine pH 5.5 5.0 Ur Specific Nickerson >=1.030 H >=1.030 H Urine Protein 2+ H 1+ H Urine Glucose (UA) Negative Negative Urine Ketones Negative Trace H Urine Occult Blood 3+ H 2+ H Urine Nitrate Negative Negative Urine Bilirubin Negative Negative Urine Urobilinogen 1.0 0.2 Ur Leukocyte Esterase Negative Negative Urine RBC >100/hpf 0-1/hpf Urine WBC None seen None seen Urine Bacteria None seen None seen Ur Culture Indicated? Cult not indicated Cult not indicated Nasal Screen MRSA (PCR) Urine Opiates Screen Ur Oxycodone Screen Urine Methadone Screen Ur Barbiturates Screen U Tricyclic Antidepress Ur Phencyclidine Scrn Ur Amphetamines Screen U Methamphetamines Scrn Ur MDMA Scrn (Ecstasy) U Benzodiazepines Scrn Urine Cocaine Screen U Marijuana (THC) Screen 11/17/18 11/17/18 11/17/18 04:48 08:25 08:25 WBC 8.2 RBC 5.45 Hgb 16.6 Hct 49.3 MCV 90.5 MCH 30.5 MCHC 33.7 RDW 13.4 Plt Count 120 L Neut % (Auto) 77.1 H Lymph % (Auto) 14.1 L Bosque % (Auto) 6.9 Eos % (Auto) 1.5 L Baso % (Auto) 0.4 Neut # (Auto) 6300 Lymph # (Auto) 1200 Bosque # (Auto) 600 Eos # (Auto) 100 Baso # (Auto) 0 PT INR Sodium 142 Potassium 3.8 Chloride 104 Carbon Dioxide 27 BUN 16 Creatinine 0.90 Estimated GFR > 60.0 BUN/Creatinine Ratio 17.8 Glucose 91 Calcium 9.2 Magnesium 1.8 Total Bilirubin 3.3 H AST 43 ALT 46 Alkaline Phosphatase 57 Ammonia Troponin I 0.059 H B-Natriuretic Peptide 202 H Total Protein 7.0 Albumin 4.1 Globulin 2.9 Albumin/Globulin Ratio 1.4 Procalcitonin Urine Color Urine Appearance Urine pH Ur Specific Nickerson Urine Protein Urine Glucose (UA) Urine Ketones Urine Occult Blood Urine Nitrate Urine Bilirubin Urine Urobilinogen Ur Leukocyte Esterase Urine RBC Urine WBC Urine Bacteria Ur Culture Indicated? Nasal Screen MRSA (PCR) Urine Opiates Screen Ur Oxycodone Screen Urine Methadone Screen Ur Barbiturates Screen U Tricyclic Antidepress Ur Phencyclidine Scrn Ur Amphetamines Screen U Methamphetamines Scrn Ur MDMA Scrn (Ecstasy) U Benzodiazepines Scrn Urine Cocaine Screen U Marijuana (THC) Screen 11/17/18 11/17/18 11/17/18 08:25 08:25 14:30 WBC RBC Hgb Hct MCV MCH MCHC RDW Plt Count Neut % (Auto) Lymph % (Auto) Bosque % (Auto) Eos % (Auto) Baso % (Auto) Neut # (Auto) Lymph # (Auto) Bosque # (Auto) Eos # (Auto) Baso # (Auto) PT 32.1 H INR 2.7 H Sodium Potassium Chloride Carbon Dioxide BUN Creatinine Estimated GFR BUN/Creatinine Ratio Glucose Calcium Magnesium Total Bilirubin AST ALT Alkaline Phosphatase Ammonia < 9.0 L Troponin I B-Natriuretic Peptide Total Protein Albumin Globulin Albumin/Globulin Ratio Procalcitonin Urine Color Urine Appearance Urine pH Ur Specific Nickerson Urine Protein Urine Glucose (UA) Urine Ketones Urine Occult Blood Urine Nitrate Urine Bilirubin Urine Urobilinogen Ur Leukocyte Esterase Urine RBC Urine WBC Urine Bacteria Ur Culture Indicated? Nasal Screen MRSA (PCR) Urine Opiates Screen Negative Ur Oxycodone Screen Negative Urine Methadone Screen Negative Ur Barbiturates Screen Negative U Tricyclic Antidepress Negative Ur Phencyclidine Scrn Negative Ur Amphetamines Screen Negative U Methamphetamines Scrn Negative Ur MDMA Scrn (Ecstasy) Negative U Benzodiazepines Scrn Negative Urine Cocaine Screen Negative U Marijuana (THC) Screen Negative Assessment & Plan Assessment & Plan narrative: Jorge Manrique is an 78-year-old male with past medical history significant for CAD status post CABG, chronic atrial fibrillation on Coumadin, hypertension, hyperlipidemia, CHF with EF of 36%, polycythemia vera with thrombocytopenia, and aortic stenosis status post TAVR who was admitted for unsteadiness and dizziness. 1. Acute on chronic dizziness, present on admission. Resolved. -Previous hospital admissions for similar complaint. Patient has chronic atrial fibrillation with prior admissions for missing doses of his routine medications. -Definitive cause unknown at this time, consider BPPV vs dehydration vs symptoma tic atrial fibrillation. Less likely CVA/TIA (NIH 0) vs medication induced (on lisinopril and metoprolol at home) vs hypoglycemia. -Continue to monitor on telemetry. No ectopy. -MR angiogram 11/06/2018 w/ unremarkable findings in both anterior and posterior circulation. -Continue home lisinopril and metoprolol. 2. Atrial fibrillation with RVR, present on admission. RVR resolved. -History chronic atrial fibrillation and poor adherence with medication regimen. -Treated with Toprol XL 25 mg x1 and a diltiazem 10 mg IV in ED. Continued home medications as above. -Will replete electrolytes as needed. 3. Leukocytosis, present on admission. Resolved. -Likely reactive due to dehydration. -Encourage fluid intake. -CXR 3/5 concerning for early PNA, patient is asymptomatic -Urine culture from 11/14 grew Proteus mirabilis but repeat urinalysis has had no growth. Discussed with Dr. Hidalgo of Infectious Disease at [facility] who believe this represents asymptomatic bacteriuria, however, she recommends 1 time dose of fosfomycin in order to treat. 4. Dementia, present on admission, worsening from baseline. Active. -History of behavioral disturbance and abusive in past. -DDx dementia with lewy body can cause unsteady gait and orthostatic hypotension vs. vascular demential as patient has a history of chronic atrial fibrillation and potential poor adherence with med regimen vs alcohol associated dementia as patient is an alcoholic and stopped drinking only recently after last hospitalization. -Prior admissions note behavioral disturbances and possibly delusional behavior, previously attributed to potential EtOH use; however, this admission and per prior records ETOH level <10, UDS also negative on exam observed to have difficulty naming objects and difficulty finding words, but no overt dysarthria or aphasia. -Patient notes feeling lonely and considering underlying or associated depression. -Recommended that patient follows up with outpatient neurology and psychiatry although unsure how he will realistically obtain such. -Started haldol 5 mg PO twice daily. PRN ativan for anxiety. -Consulted social work and DCR was contacted for which patient is not detainable. Will consult psychiatry. 5. HFrEF 36%, chronic, present on admission, stable -Patient does not appear to be in an acute volume access state; in fact, appears to be volume deplete as above. -Ordered IVF but patient became increasingly aggressive this morning and ripped out IV. Encourage PO intake of fluids. -Monitor for signs/ symptoms of fluid overload. 6. Acute urinary frequency, present on admission. Stable. -On admission patient had suprapubic tenderness and questionable UTI. -Repeat urinalysis x2 negative for any bacteria or bacterial enzymatic reaction like nitrate or leukocyte esterase. 7. Chronic atrial fibrillation, present on admission. Stable. -also has history of aortic stenosis status post TAVR. -Rate currently controlled. -Continue home warfarin. Continue to trend INR daily and will need close outpatient follow-up and monitoring. INR therapeutic. 8. Coronary artery disease status post CABG, chronic, present on admission. Stable. -Continue cardiac meds including: Atorvastatin 80 mg daily at bedtime, ezetimibe and warfarin. -Recent NM stress test demonstrated large old fixed perfusion defect and no ongoing active ischemia. 9. Gilbert's disease, present on admission. Stable. -Bilirubin chronically elevated due to Gilbert's disease. 10. Hyperlipidemia, chronic, present on admission. Stable. -Continue atorvastatin and ezetimibe as above. Disposition: Likely to discharge tomorrow once patient is not acutely agitated and able to discuss patient care with psychiatrist.
--- NOTE | 2018-11-17 22:46 | PC.NURSE ---
pt laying in bed, asleep. Arousable when staff attempts to awaken
[2018-11-18 02:30] VITALS: BP 127/80; PULSE 102; RESP 12; TEMP 36.9; O2SAT 99
[2018-11-18] MEDS: HALOPERIDOL 5 MG TABLET PO ×2 (02:44→09:14)
--- NOTE | 2018-11-18 06:44 | PC.NURSE ---
Pt is alert to self; When awake he is impulsive and agitated. Pt insists on urinating while standing up at the bedside with no one close to him or watching. Pt became very agitated when I explained to him i needed to be close by. Pt is extremely weak on his feet, swaying while standing with myself behind him. Voided 100mL of dark yellow urine. At about 0600 patient refused his lab draw, flailing his arm away. I asked if i could take his vital signs which he said no. I asked if he wanted to try to urinate again, patient angrily refused, I then asked if i could bladder scan him for which he also said no. Patient appear very much agitated and was huffing and puffing in the room and cursing. I gave the patient some more water and let him rest while maintained 1:1 safety checks. at 0650: pt able to tell me the date, his name and birthday, he was just unsure about where exactly he is. Still refusing to try to pee stating he doesn't have to go; offered to bladder scan again and pt refused. Pt asking if we are now going to send him to the [facility].
--- NOTE | 2018-11-18 06:48 | PC.NURSE ---
Pt refused morning lab draw and vital sign. Pt also refused bladder scan.
--- NOTE | 2018-11-18 07:58 | PC.NURSE ---
Addendum entered by Parisa Steele R.N. 11/18/18 12:56: Updated Dr Cool with Pt status, d/c orders written with decreased Haldol dosing. Merts taxi to supply planner Pt as arranged by CM. Discharge teaching simple review of medications and follow up. HH to be starting with Pt. Original Note: Addendum entered by Parisa Steele R.N. 11/18/18 11:04: Pt has voided x2 for this RN, Dr Cool aware, as bladder scan was declined by Pt. Original Note: Addendum entered by Parisa Steele R.N. 11/18/18 11:02: Pt Transfers to ICU bed 101, able to assist to transfer to bed. Cooperative with changing into gown. Allowed brief assessment. Snack provided. Pt settling into care well. Lights dim, BA active. 1100-Dr Cool into see Pt. Updated with d/c home plans later today. Original Note: Addendum entered by Parisa Steele R.N. 11/18/18 09:08: Updated Pt about POC, and moving over to ICU, You say it like I can choose not to go Discussed d/c plans and Pt verbalizes desire to get home, my real home Reassurance provided. 05-Provided Report to SHABANA Terry, plan to transfer after PO medication. Original Note: 0700 Assumed care of supervised Pt. Resting in seclusion room in ER, lights dim. Occasionally calling for staff assist. When Pt up to edge of bed for urinal, gait very unsteady, leaning backward. Multiple requests to have privacy, Reminded Pt of poor safety awareness and given arms length stand by for Pt to steady himself as needed. Assisted to bed after void. Warm blanket and water provided. When do I get shipped out of here? You know where im going? Pharmacist Aide-organ recovery coordinator bin Updated on POC with Dr Bone. Agitation is redirectable with staff intervention.
--- NOTE | 2018-11-18 09:30 | PC.NURSE ---
kristina heard, given report to icu luca, transfer to icu via stretcher, along with personal belongings.
[2018-11-18 10:09] VITALS: BP 136/79; PULSE 88; O2SAT 96
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
[2018-11-18 11:08] VITALS: O2SAT 96
[2018-11-18] MEDS: FOSFOMYCIN 3 GM PACKET PO (12:37)
[2018-11-18 12:44] VITALS: BP 136/79; PULSE 76
[2018-11-18] MEDS: METOPROLOL ER 25 MG TABLET 12.5 MG PO (12:44)
[2018-11-18] MEDS: LISINOPRIL 5 MG TABLET 2.5 MG PO (12:44)
--- NOTE | 2018-11-18 14:49 | CM.DPNOTE ---
Pt evaluated by DCR yesterday and did not meet criteria to be detained. See ED STORAGE WORKER Sveta's note. Today: Pt calm and cooperative and moved to ICU rm 101. Pt discussed in multi-disciplinary rounds. Pt will be DC today. Dr Cool has spent substantial time working w/pt today reviewing DC recommendations, and f/u needed by PCP Dr Cheung. Plan also reviewed w/family members. Pt A+O, mild dementia noted and documented by [employer] FORMING MACHINE TENDER. Discussed plan w/Dr Cool throughout the day and also discussed plan w/(step?)son Mauricio P# [phone]. Spouse Shira right by son Mauricio upon this discussion, Shira very [employer], heavy accent, does not like talking on phone. Mauricio explains they have left food for pt, heat and lights are on. Pt has told adult children Mauricio and Kassy he will not see them or accept any help from them. He would like to see his Shira and she has now officially left him, legal papers pending. Pt agreeable to home health. Referral pending. Cab arranged for p/u through [employer], at 1500, [facility]/u the Haldol that has been prescribed by Dr Cool. All of this has been reviewed w/pt. Pt remains calm and cooperative. APS report has been submitted by this STORAGE WORKER today via online reporting. According to Dr Cool, [facility] Psychiatrist Dr Chaudhry has suggested a lowered dose of Haldol upon DC (see DC summary) and he suggests the family start a court petition advocating for pt to be deemed non-decisional and in need of payee/guardian etc. This STORAGE WORKER will attempt to relay this to pt's family and encourage them to report suspected self neglect to APS. HUBER Lantigua
--- NOTE | 2018-11-18 16:23 | PC.NURSE ---
Pt taken by wheelchair to ER entrance with paperwork. Instructions given to funeral limousine driver information and assisted into vehicle. Pt cooperative. Family called prior and understand that pt is going home.
--- NOTE | 2018-11-24 13:08 | CM.SWNOTE ---
Social Work Note: Received VM from Dtr Kassy yesterday, 11.23.18, requesting QA TEST LEAD call back to discuss Jorge P#[phone]. This QA TEST LEAD unable to return call. Received another two VM from dtr Kassy this morning, Kassy explains that Jorge has been seen this morning at the [employer] handing out $20 bills. Kassy fears that Jorge's dementia has progressively worsened since he was last seen at and asks two specific questions, what is the contact for James Gallegos and would Jorge meet criteria for detainment ? This QA TEST LEAD once again unable to return Kassy's call today d/t caseload demands. Placed call to James MILLER, P# [phone] had to LM explaining dtr Kassy needs f/u contact, left Dtr's number on VM. Subsequently, found out Jorge is currently in the ER, 11.24.18 1300. Lindsey Santana, QA TEST LEAD, [facility], available and is responding to request from ER to eval and assist in next steps (?) HUBER Lantigua
== END 2018-11-18 16:15 | disposition home health service (06) | DRG 309 ==
LOC: ED 18:10 → ICU 11-17 07:26 → ED 11-17 08:11 → ICU 11-18 10:41
PROVIDERS: Emergency Medicine; Admitting Provider Internal Medicine; Emergency Provider Internal Medicine; PCP Internal Medicine; Visit Provider Nurse Practitioner Gerontology
DX: I48.2 Chronic atrial fibrillation (principal); I50.20 Unspecified systolic (congestive) heart failure; Z79.01 Long term (current) use of anticoagulants; R42 Dizziness and giddiness; F03.90 Unspecified dementia, unspecified severity, without behavioral disturbance, psychotic disturbance, mood disturbance, and anxiety; D45 Polycythemia vera; D69.6 Thrombocytopenia, unspecified; I11.0 Hypertensive heart disease with heart failure; E80.4 Gilbert syndrome; I25.10 Atherosclerotic heart disease of native coronary artery without angina pectoris; Z95.1 Presence of aortocoronary bypass graft; R35.0 Frequency of micturition; E78.5 Hyperlipidemia, unspecified
CPT/HCPCS: 36415; 51798; 70450; 71045; 80048; 80053; 80305; 80320; 81001; 82140; 82962; 83735; 83880; 84145; 84484; 85025; 85610; 85730; 87797; 93005; 93010; 96361; 96372; 96374; 96375; 99285; 99291; J1630; J2060

== ENCOUNTER 2018-11-24 12:37 | Emergency (ER) | payer MEDICARE, OTHER, SELFPAY ==
[2018-11-16 21:42] VITALS: BMI 22.6
[2018-11-24 12:45] VITALS: BP 108/65; PULSE 100; RESP 16; TEMP 37; O2SAT 94
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
--- NOTE | 2018-11-24 13:08 | PC.NURSE ---
[place] total of $1229 counted w/ Pallavi officer, co signed together, placed in Yellow envelope [phone] and brought to safe on second floor nursing station.
--- NOTE | 2018-11-24 13:14 | PC.NURSE ---
lab in room with pt drawing blood. pt calm and cooperative
--- NOTE | 2018-11-24 13:14 | PC.NURSE ---
1305 pt changed into hospital gown and provided nonslip socks. [employer] on standby outside of door. Pt was cooperative with undressing, insisted that he shouldnt be here as he was just trying to go to the bank and open an account
--- NOTE | 2018-11-24 13:18 | CM.SWNOTE ---
This PATIENT SUPPORT SPECIALIST Entry Submitted in Chart, Two Places: ER Visit, 11.24.18, and Admission 11.18.18 Social Work Note: Received VM from Dtr Kassy yesterday, 11.23.18, requesting PATIENT SUPPORT SPECIALIST call back to discuss Jorge P#[phone]. This PATIENT SUPPORT SPECIALIST unable to return call. Received another two VM from dtr Kassy this morning, Kassy explains that Jorge has been seen this morning at the [employer] course handing out $20 bills. Kassy fears that Jorge's dementia has progressively worsened since he was last seen at and asks two specific questions, what is the contact for James Gallegos and would Jorge meet criteria for detainment ? This PATIENT SUPPORT SPECIALIST once again unable to return Kassy's call today d/t caseload demands. Placed call to James valdez/ ANGELA, P# [phone] had to LM explaining dtr Kassy needs f/u contact, left Dtr's number on VM. Subsequently, found out Jorge is currently in the ER, 11.24.18 1300. HUBER Spangler, [facility], available and is responding to request from ER to eval and assist in next steps (?) HUBER Lantigua
[2018-11-24 13:23] LABS: Add Manual Diff / Slide Review NO; Basophils Absolute Auto 0 /uL (0-100); Basophils Percent Auto 0.5 % (0-2); Eosinophils Absolute Auto 100 /uL (0-450); Eosinophils Percent Auto 0.8 % (2-4); Hematocrit 46.8 % (41-53); Hemoglobin 15.8 g/dL (13.5-17.5); Lymphocytes Absolute Auto 1400 /uL (1100-4500); Lymphocytes Percent Auto 19.5 % (25-40); Mean Corpuscular HGB Conc 33.7 % (30-36); Mean Corpuscular Hemoglobin 30.2 PG (26-34); Mean Corpuscular Volume 89.5 fL (80-100); Monocytes Absolute Auto 700 /uL (0-900); Monocytes Percent Auto 9.1 % (3-14); Neutrophils Absolute Auto 5200 /uL (1500-7000); Neutrophils Percent Auto 70.1 % (50-75); Platelet Count 135 X10^3/uL (150-400); Red Blood Cell Count 5.23 X10^6/uL (4.5-5.9); Red Cell Distribution Width 13.5 % (11.6-14.8); White Blood Cell Count 7.4 X10^3/uL (4.5-11.0)
[2018-11-24 13:35] LABS: Prothrombin Time 63.3 SECONDS (10.1-12.7)
[2018-11-24 13:37] LABS: INR 5.3 (0.9-1.3)
[2018-11-24 13:39] LABS: PTT Partial Thromboplastin Tim 49 SECONDS (26.4-36.2)
--- NOTE | 2018-11-24 13:39 | DI.CT.S_ITS ---
PROCEDURE: CT HEAD/BRAIN WO CON INDICATIONS: INR 5.3, altered mental status. TECHNIQUE: Noncontrast 4.5 mm thick angled axial sections acquired from the foramen magnum to the vertex, with coronal and sagittal reformats. For radiation dose reduction, the following was used: automated exposure control, adjustment of mA and/or kV according to patient size. COMPARISON: [facility], MR, MR HEAD/BRAIN WO CON, 11/06/2018, 17:34. [facility], CT, CT HEAD/BRAIN WO CON, 11/14/2018, 1:20. [facility], CT, CT HEAD/BRAIN WO CON, 11/16/2018, 14:18. [facility], CT, CT HEAD/BRAIN WO CON, 11/05/2018, 7:36. FINDINGS: Image quality: Excellent. CSF spaces: Basal cisterns are patent. No extra-axial fluid collections. The ventricles are symmetric in size and shape. Brain: No intracranial bleeds or masses. There is cerebral volume loss for age, with resultant ventricular and sulcal prominence. There are periventricular and deep white matter chronic small vessel ischemic changes. There is intracranial internal carotid artery and vertebral artery atherosclerosis. Skull and face: Calvarium and visualized facial bones appear intact, without suspicious lesions. Sinuses: Visualized sinuses and mastoids are clear. IMPRESSION: 1. No acute intracranial abnormalities. 2. Cerebral volume loss and chronic microvascular ischemic changes. Dictated by: Julio C Braun M.D. on 11/24/2018 at 14:04 Approved by: Julio C Braun M.D. on 11/24/2018 at 14:08
[2018-11-24 13:40] LABS: Lactate (Lactic Acid) 1.4 mmol/L (0.7-2.1)
[2018-11-24 13:41] LABS: Alanine Aminotransferase 52 IU/L (21-72); Albumin 3.9 g/dL (3.5-5.0); Albumin Globulin Ratio 1.4 (1.0-2.8); Alkaline Phosphatase 59 U/L (38-126); Aspartate Aminotransferase 62 IU/L (17-59); BUN Creatinine Ratio 24.4 (6-22); Bilirubin Total 2.4 mg/dL (0.2-1.3); Blood Urea Nitrogen 22 mg/dL (9-20); Calcium 9.2 mg/dL (8.4-10.2); Carbon Dioxide 25 mmol/L (22-32); Chloride 100 mmol/L (98-107); Estimated Glomerular Filt Rate > 60.0 mL/min (>60); Globulin 2.8 g/dL (1.7-4.1); Glucose 93 mg/dL (80-110); HEMOLYSIS < 15 (0-50); Potassium 3.9 mmol/L (3.4-5.1); Sodium 135 mmol/L (137-145); Total Protein 6.7 g/dL (6.3-8.2)
[2018-11-24 13:42] LABS: Ethanol (ETOH) < 10 mg/dL
[2018-11-24 13:57] LABS: Bacteria Urine None Seen; RBC Urine None Seen (0-5/HPF); WBC Urine None Seen (0-5/HPF)
[2018-11-24 14:01] VITALS: BP 111/73; PULSE 76; RESP 15; O2SAT 98
[2018-11-24 14:04] LABS: Urine Tetrahydrocannabinol Negative (Negative)
[2018-11-24 14:05] LABS: Urine Amphetamines Negative (Negative); Urine Barbiturates Negative (Negative); Urine Benzodiazepines Positive (Negative); Urine Cocaine Negative (Negative); Urine MDMA Negative (Negative); Urine Methadone Negative (Negative); Urine Methamphetamines Negative (Negative); Urine Morphine/Opi cutoff 2000 Negative (Negative); Urine Oxycodone Negative (Negative); Urine Phencyclidine Positive (Negative); Urine Tricyclic Antidepressant Negative (Negative)
--- NOTE | 2018-11-24 14:08 | PC.NURSE ---
Pt has asked numerous times what his name is, and if he has a niece named Opal. When reminded of name pt seems content. Pt aware of meal tray, denies at this time
[2018-11-24 14:11] LABS: Culture Indicated Urine Cult Not Indicated; Urine Comments Microscopic Normal
--- NOTE | 2018-11-24 14:23 | PC.NURSE ---
due to frequent urination bladder scan was ordered for pt. Pt was calm and cooperative during the scan. During this time Pt was asking how to spell his name
[2018-11-24 14:31] LABS: Thyroid Stimulating Hormone 1.91 uIU/mL (0.47-4.68)
[2018-11-24] MEDS: PHYTONADIONE (VIT K1) 5 MG TABLET 10 MG PO (15:05)
--- NOTE | 2018-11-24 15:15 | PC.NURSE ---
Pt cooperative when RN provided meds, now sitting in bed eating the provided meal and drink. Pt is calm and responsive at the moment
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
--- NOTE | 2018-11-24 15:54 | PC.NURSE ---
Respiratory therapy at bedside to perform non-urgent EKG. Pt is compliant and conversing normally with staff.
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
--- NOTE | 2018-11-24 16:44 | PC.NURSE ---
pt stated that he wanted to leave and that I better not touch him and to put the rail down. When told that I cant let him out of the room, pt got aggravated and got out of bed coming towards the door. When told that he needs to stay in the room he insisted that he needed to get out of there. For staff's safety the door was closed. RN and Dr de luna. Pt currently banging on door
--- NOTE | 2018-11-24 17:03 | PC.NURSE ---
Pt began to escalate by repeatedly hitting the door. Pt not hitting door hard enough to cause injuries. Pt then grabbed stretcher and started moving it. Staff went in to the room and removed the stretched and placed a mattress on the ground. Pt was adamant about leaving the room and getting out of the ED. Bed was removed successfully and pt is now laying down on the mattress.
--- NOTE | 2018-11-24 17:26 | PC.NURSE ---
Pt knocking on door claiming that if the door isnt opened for him to leave he is going to break through all the glass
--- NOTE | 2018-11-24 17:26 | PC.NURSE ---
Pt yelling at staff saying Youre done! Youre done if you dont get up off that computer and come talk to me, pt continues to knock on door even when spoken to.
--- NOTE | 2018-11-24 17:55 | PC.NURSE ---
Pt yelling at the door give me the roach, i want out of here continuously.
--- NOTE | 2018-11-24 17:59 | PC.NURSE ---
Pt currently urinating in the corner of the room. Pt did not tell staff that he had to use the restroom beforehand.
--- NOTE | 2018-11-24 19:09 | PC.NURSE ---
patient walking around room, constantly banging on the door just to insult staff.
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
[2018-11-24] MEDS: HALOPERIDOL 5 MG/ML VIAL IM (19:29)
[2018-11-24] MEDS: LORazepam 2 MG/ML SYRINGE IM (19:30)
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
--- NOTE | 2018-11-24 19:35 | PC.NURSE ---
Patient now standing at the door glaring at staff.
--- NOTE | 2018-11-24 19:39 | PC.NURSE ---
Pt's silver colored metal watch removed and wrapped in towel, placed in bag for safe and brought to safe by coordinator safe lock [id number].
--- NOTE | 2018-11-24 20:07 | PC.NURSE ---
pt laying on mattress, seems calm
--- NOTE | 2018-11-24 20:27 | PC.NURSE ---
pt laying down and calm on mattress. Provided with another blanket, and door will now be left open.
[2018-11-24 21:19] LABS: Prothrombin Time 47.7 SECONDS (10.1-12.7)
[2018-11-24 21:34] VITALS: BP 92/57; PULSE 91; RESP 15; O2SAT 99
--- NOTE | 2018-11-24 23:03 | PC.NURSE ---
Pt sleeping resp. even and unlabored LEASE BUYER remains at bedside and observing
--- NOTE | 2018-11-24 23:14 | PC.NURSE ---
PT is sleeping with warm blankets and a pillow on a mattress on the floor.
[2018-11-24 23:15] VITALS: BP 91/56; PULSE 90; RESP 20; O2SAT 97
--- NOTE | 2018-11-24 23:27 | PC.NURSE ---
PT is still sleeping on the matress.
--- NOTE | 2018-11-24 23:45 | PC.NURSE ---
PT is still sound asleep on the matress.
--- NOTE | 2018-11-24 23:57 | PC.NURSE ---
PT is still sleeping on his left side.
[2018-11-25] VITALS (11 sets, daily range): BP systolic 85–128; BP diastolic 56–85; PULSE 58–101; RESP 16–18; TEMP 36.1; O2SAT 95–97
--- NOTE | 2018-11-25 00:14 | PC.NURSE ---
PT has not moved. He is still sound asleep.
--- NOTE | 2018-11-25 00:26 | PC.NURSE ---
PT sound asleep.
--- NOTE | 2018-11-25 00:35 | PC.NURSE ---
Kiya the RN and I went into PT room to get vitals. PT is still sound asleep.
--- NOTE | 2018-11-25 00:48 | PC.NURSE ---
PT still sound asleep.
--- NOTE | 2018-11-25 01:01 | PC.NURSE ---
PT has not moved. He is still laying on his left side sound asleep.
--- NOTE | 2018-11-25 01:09 | PC.NURSE ---
PT woke up, took his blankets off and closed his eyes.
--- NOTE | 2018-11-25 01:16 | PC.NURSE ---
PT is sleeping with no blankets on.
--- NOTE | 2018-11-25 01:27 | PC.NURSE ---
PT is still sound asleep.
--- NOTE | 2018-11-25 01:33 | PC.NURSE ---
PT woke up looked at me and put his blankets back on and laid back down.
--- NOTE | 2018-11-25 01:37 | PC.NURSE ---
PT is awake and moving around on the mattress.
--- NOTE | 2018-11-25 01:47 | PC.NURSE ---
PT woke up and peed all over the mattress. Kiya the RN helped me get him back in bed and clean up the urine. Gave him a warm blanket and now he is resting back on the mattress.
--- NOTE | 2018-11-25 01:59 | PC.NURSE ---
PT has been resting on the mattress. He will move his legs and feet around.
--- NOTE | 2018-11-25 02:08 | PC.NURSE ---
I gave PT a warm blanket. He is now laying on his right side.
--- NOTE | 2018-11-25 02:14 | PC.NURSE ---
PT still laying on right side sleeping.
--- NOTE | 2018-11-25 02:29 | PC.NURSE ---
PT is still on his right side sleeping.
--- NOTE | 2018-11-25 02:45 | PC.NURSE ---
PT is awake. PT rolled to his left side. PT is just laying there messing with his blankets.
--- NOTE | 2018-11-25 02:56 | PC.NURSE ---
Gave PT a warm blanket. He is still sleeping.
--- NOTE | 2018-11-25 03:09 | PC.NURSE ---
PT got up out of bed. Was agitated. Kiya tried to give him juice but he knocked it out of his hands. He refused sandwich. He was up walking around and stayed in a corner for a few minutes. Now he is back laying on the mattress on his right side.
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
--- NOTE | 2018-11-25 03:27 | PC.NURSE ---
PT laying on the mattress on his right side with his blankets on and pillow. He has his eyes closed.
--- NOTE | 2018-11-25 03:43 | PC.NURSE ---
PT still on his right side sleeping.
--- NOTE | 2018-11-25 03:59 | PC.NURSE ---
PT is sound asleep.
--- NOTE | 2018-11-25 04:14 | PC.NURSE ---
PT is still sound asleep. He has not moved.
--- NOTE | 2018-11-25 04:26 | PC.NURSE ---
PT still sleeping.
--- NOTE | 2018-11-25 05:06 | PC.NURSE ---
PT is sleeping on the mattress facing the wall.
--- NOTE | 2018-11-25 05:14 | PC.NURSE ---
PT still sound asleep.
--- NOTE | 2018-11-25 05:25 | PC.NURSE ---
PT is sound asleep. He has not moved.
--- NOTE | 2018-11-25 05:34 | PC.NURSE ---
PT was moving around trying to get covers over his legs and shoulders but blanket was to short. So I put another warm blanket over his legs.
--- NOTE | 2018-11-25 05:50 | PC.NURSE ---
PT peed again. Housekeeping came and mopped the floor as best as he can get it. PT asked for clean underwear. Kiya gave him clean underwear and pants. PT is agitated.
--- NOTE | 2018-11-25 05:56 | PC.NURSE ---
PT has been trying to stand up on the mattress but could not get his balance. He got tired and just laid back down on the mattress.
--- NOTE | 2018-11-25 06:04 | PC.NURSE ---
PT was trying to reach for his blankets but he was laying on top of them. I went and got him some warm blankets and he was thankful for them.
--- NOTE | 2018-11-25 06:15 | PC.NURSE ---
PT awake. Just laying on the mattress with his blankets on. His head is towards the door and he is facing the wall.
--- NOTE | 2018-11-25 06:28 | PC.NURSE ---
PT awake. He has been moving around and scratching his head. PT has been laying on the mattress calm and resting
--- NOTE | 2018-11-25 06:44 | PC.NURSE ---
PT asleep. He has not moved. Still facing wall and head towards the door.
--- NOTE | 2018-11-25 06:56 | PC.NURSE ---
PT is sound asleep.
--- NOTE | 2018-11-25 07:13 | PC.NURSE ---
PT still sound asleep.
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
--- NOTE | 2018-11-25 07:38 | PC.NURSE ---
PT at side of mattress using the urinal to pee. He went back on the mattress and I gave him warm blankets.
[2018-11-25] MEDS: ATORVASTATIN 20 MG TABLET 80 MG PO (07:40)
[2018-11-25] MEDS: LISINOPRIL 5 MG TABLET PO (07:40)
[2018-11-25] MEDS: METOPROLOL ER 25 MG TABLET PO (07:42)
--- NOTE | 2018-11-25 07:44 | PC.NURSE ---
unable to get vital signs pre medications. pt is aggressive. police will be coming to stand by while pt will giving pt pills.
--- NOTE | 2018-11-25 07:45 | PC.NURSE ---
PT is laying on the mattress.
--- NOTE | 2018-11-25 08:09 | PC.NURSE ---
PT was calm when 3 police officers came for back up to help assist the RN to give the PT his medication. Pt is relaxing on the mattress.
[2018-11-25] MEDS: HALOPERIDOL 5 MG TABLET PO (08:14)
--- NOTE | 2018-11-25 08:28 | PC.NURSE ---
PT wanted to know why he was here. RN told him why. He is resting sideways on the mattress.
--- NOTE | 2018-11-25 09:06 | PC.NURSE ---
PT refused breakfast. I let him know that when he gets hungry we will have it waiting for him. He shook his head okay
--- NOTE | 2018-11-25 09:17 | PC.NURSE ---
PT is sleeping sideways on the mattress.
[2018-11-25 09:36] LABS: Add Manual Diff / Slide Review NO; Basophils Absolute Auto 0 /uL (0-100); Basophils Percent Auto 0.4 % (0-2); Eosinophils Absolute Auto 100 /uL (0-450); Eosinophils Percent Auto 1.5 % (2-4); Hematocrit 47.2 % (41-53); Lymphocytes Absolute Auto 1200 /uL (1100-4500); Lymphocytes Percent Auto 16.6 % (25-40); Mean Corpuscular HGB Conc 33.9 % (30-36); Mean Corpuscular Hemoglobin 30.4 PG (26-34); Mean Corpuscular Volume 89.8 fL (80-100); Monocytes Absolute Auto 900 /uL (0-900); Monocytes Percent Auto 11.7 % (3-14); Neutrophils Absolute Auto 5100 /uL (1500-7000); Neutrophils Percent Auto 69.8 % (50-75); Platelet Count 130 X10^3/uL (150-400); Red Blood Cell Count 5.26 X10^6/uL (4.5-5.9); Red Cell Distribution Width 13.6 % (11.6-14.8); White Blood Cell Count 7.4 X10^3/uL (4.5-11.0)
[2018-11-25 09:46] LABS: INR 1.8 (0.9-1.3); Prothrombin Time 20.8 SECONDS (10.1-12.7)
[2018-11-25 09:50] LABS: BUN Creatinine Ratio 23.8 (6-22); Blood Urea Nitrogen 19 mg/dL (9-20); Calcium 9.5 mg/dL (8.4-10.2); Carbon Dioxide 27 mmol/L (22-32); Chloride 102 mmol/L (98-107); Estimated Glomerular Filt Rate > 60.0 mL/min (>60); Glucose 76 mg/dL (80-110); HEMOLYSIS 24 (0-50); Potassium 4.1 mmol/L (3.4-5.1); Sodium 138 mmol/L (137-145)
--- NOTE | 2018-11-25 10:02 | PC.NURSE ---
Staff was able to wake up patient and orient him to the room. Patient was cooperative with sitting up in bed so we can change all of his dirty linens and get sitting up for breakfast. Patient is eating and drinking orange juice, sitting on bed quietly.
--- NOTE | 2018-11-25 10:23 | PC.NURSE ---
PT sat up and ate breakfast. Cleaned his dentures. He also used the urinal and gave himself a sponge bath to clean his private area. He has fresh underwear on. Very cooperative.
--- NOTE | 2018-11-25 10:32 | PC.NURSE ---
PT is sitting up against the wall. Gave him warm blankets. He was very thankful.
--- NOTE | 2018-11-25 10:48 | PC.NURSE ---
PT is laying up against the wall sleeping.
--- NOTE | 2018-11-25 11:18 | PC.NURSE ---
pt sitting on mattress, door is open to hallway.
--- NOTE | 2018-11-25 11:21 | PC.NURSE ---
Pt resting on mattress with warm blankets wrapped around him
--- NOTE | 2018-11-25 11:31 | PC.NURSE ---
Pt asked for his upper dentures, pt laying back down on bed relaxing
--- NOTE | 2018-11-25 11:32 | PC.NURSE ---
pt requested his upper dentures, pt relaxing on mattress
--- NOTE | 2018-11-25 11:46 | PC.NURSE ---
pt requested urinal
--- NOTE | 2018-11-25 11:47 | PC.NURSE ---
Pt using urinal in room, door open to hallway
--- NOTE | 2018-11-25 12:16 | PC.NURSE ---
Pt. was yelling earlier for help so I offered him to use the restroom and he said he didn't need to go. Pt. is currently falling asleep.
--- NOTE | 2018-11-25 12:34 | PC.NURSE ---
Pt. is laying on his left side and trying to fall asleep.
--- NOTE | 2018-11-25 12:46 | PC.NURSE ---
Pt. remains asleep.
--- NOTE | 2018-11-25 13:14 | PC.NURSE ---
Pt. refusing assistance to go to the bathroom and Brijesh tried to help, but he held on tight to his hand and refused letting go of the both of us. After letting go of us he crawled back to his mattress. He called for help a few minutes later to pee in the urinal and he managed to go on his own. After using the urinal he managed to crawl into the bathroom on his own and became aggressive when RN came to offer help. He yells for help and slams on the bathroom door. Staff helped get him back into bed. He is currently laying on his left side on the mattress.
[2018-11-25] MEDS: HALOPERIDOL 5 MG/ML VIAL IM ×2 (13:38→22:37)
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
--- NOTE | 2018-11-25 13:45 | PC.NURSE ---
Pt. is calm and remains laying on mattress.
--- NOTE | 2018-11-25 14:15 | PC.NURSE ---
Pt. requested for warm blankets and is trying to get comfortable. He is lying on his right side.
--- NOTE | 2018-11-25 14:31 | PC.NURSE ---
Pt. is calm and remains on his right side lying.
--- NOTE | 2018-11-25 14:45 | PC.NURSE ---
Pt. is lying on his right side and sleeping.
--- NOTE | 2018-11-25 14:58 | PC.NURSE ---
Pt is sleeping, Vitals on hold until awake
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
--- NOTE | 2018-11-25 15:18 | PC.NURSE ---
Patient started to get up. Nurse and I assisted patient with attempting to take oral medications. Patient refused; slapping the pills out of the nurses hand. Patient then threw cup of water as well. Stepped out for a minute for patient to calm down, then gave him the urinal as he was needing to pee. Patient is now laying down in bed.
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
--- NOTE | 2018-11-25 15:23 | PC.NURSE ---
attempted to give Ativan PO, pt threw pills across the floor, hit water out of this RN's hand. Beverage and toileting offered to patient.
[2018-11-25] MEDS: LORazepam 2 MG/ML SYRINGE IM (15:52)
--- NOTE | 2018-11-25 15:53 | PC.NURSE ---
Pt cooperated with shot, complained of low back discomfort, let patient know that the medication I was going to give was also a muscle relaxer, and would help us out with behavior, pt agreed to injection and chose his left gluteous for site. Pt laid down to go to sleep. Stated he takes that stuff at home so he was familiar with it. Pt voided into urinal prior to this. Pt given warm blankets.
--- NOTE | 2018-11-25 16:24 | PC.NURSE ---
Patient was getting agitated and look uncomfortable shifting around. Got the patient to let us check vital signs, give him fresh blankets, and I mopped up all the urine on the floor/spann that he had peed on. Patient now laying down in bed.
--- NOTE | 2018-11-25 17:44 | PC.NURSE ---
pt laying on mattress resting, door open to hallway
--- NOTE | 2018-11-25 17:45 | PC.NURSE ---
pt resting on mattress with blankets
--- NOTE | 2018-11-25 17:55 | PC.NURSE ---
pt laying on mattress with blankets on top of him, door is open to the hallway
--- NOTE | 2018-11-25 18:00 | PC.NURSE ---
pt resting on mattress with eyes closed, can see his chest rise and fall.
--- NOTE | 2018-11-25 18:17 | PC.NURSE ---
pt laying on mattress with blankets, door is open to the hallway and lights are on in room.
--- NOTE | 2018-11-25 18:18 | PC.NURSE ---
pt resting on bed, has water to drink in paper cup within arms reach.
--- NOTE | 2018-11-25 18:33 | PC.NURSE ---
pt sleeping, has water in paper cup at bedside
--- NOTE | 2018-11-25 18:45 | PC.NURSE ---
pt sleeping, door to hallway is open and lights are on in room
--- NOTE | 2018-11-25 19:12 | PC.NURSE ---
Patient sleeping on bed, steady respirations @ 20/min
--- NOTE | 2018-11-25 19:18 | PC.NURSE ---
Report given to Theodora DONALD
--- NOTE | 2018-11-25 19:20 | PC.NURSE ---
Patient starting to stir in bed. Still laying down currently
--- NOTE | 2018-11-25 19:31 | PC.NURSE ---
Patient is waking up, using the urinal now.
--- NOTE | 2018-11-25 19:43 | PC.NURSE ---
Patient has been trying to use the urinal with no output yet. He is still trying, does not want any help from me. He is being calm at this point.
--- NOTE | 2018-11-25 19:59 | PC.NURSE ---
pt used urinal, he is now laying back on mattress with fresh warm blankets
--- NOTE | 2018-11-25 20:15 | PC.NURSE ---
pt is laying on mattress kind of restless, door is open to hallway with lights on in room
--- NOTE | 2018-11-25 20:16 | PC.NURSE ---
pt is laying on mattress with blankets, chest is rising and falling.
--- NOTE | 2018-11-25 20:46 | PC.NURSE ---
Patient resting on bed in odd position
--- NOTE | 2018-11-25 21:32 | PC.NURSE ---
Patient still sleeping on bed
--- NOTE | 2018-11-25 21:48 | PC.NURSE ---
Patient waking up to use the urinal again. Asking for water. Gave patient water and will get him some snacks from ICU. Nurse assessed his mental status and I took vital signs. Patient being rude but cooperative. He is using the urinal now.
--- NOTE | 2018-11-25 22:00 | PC.NURSE ---
pt sitting up in bed eating sandwiches and drinking juice
--- NOTE | 2018-11-25 22:01 | PC.NURSE ---
pt relaxing in bed eating snacks
--- NOTE | 2018-11-25 22:12 | PC.NURSE ---
Gave the patient a plate of food from the ICU. [place] halves, cookies, cheese. Patient seemed hungry but did not eat any of the food.
--- NOTE | 2018-11-25 22:14 | PC.NURSE ---
Nurse Jia was able to coerce patient to change into clean underwear and brush his teeth.
--- NOTE | 2018-11-25 22:28 | PC.NURSE ---
Patient eating snacks and drinking water now.
--- NOTE | 2018-11-25 22:52 | PC.NURSE ---
Patient was starting to wake up and eat more of his food. Patient wanted to stand for a couple minutes to stretch. Patient then stumbled over to door and I made sure he would not fall or hit his head on the wall. Patient was looking for a way to get out, got closer to me and tried to push past me while yelling. APRIL Euceda and I grabbed the patient to safely put him back in the room. Doctor came to talk with patient, deemed to sedate patient. With the help of security, APRIL, and 2 RN's we sedated the patient, got him fresh blankets and helped him find a new position to lay in.
--- NOTE | 2018-11-25 23:04 | PC.NURSE ---
Patient sleeping on bed
--- NOTE | 2018-11-25 23:18 | PC.NURSE ---
pt sleeping, door is open to hallway.
[2018-11-26] VITALS (7 sets, daily range): BP systolic 83–130; BP diastolic 55–81; PULSE 84–106; RESP 16–18; TEMP 35.8–36.4; O2SAT 95–98
--- NOTE | 2018-11-26 00:18 | PC.NURSE ---
patient lying down sleeping
--- NOTE | 2018-11-26 02:54 | PC.NURSE ---
patient sleeping lying on his left side
--- NOTE | 2018-11-26 04:46 | PC.NURSE ---
patient sleeping lying on his left side
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
[2018-11-26] MEDS: HALOPERIDOL 5 MG/ML VIAL IM (05:58)
--- NOTE | 2018-11-26 06:16 | PC.NURSE ---
patient sitting down on the chair sleeping
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
[2018-11-26] MEDS: diphenhydrAMINE 50 MG/ML VIAL IM (07:23)
[2018-11-26] MEDS: LORazepam 2 MG/ML SYRINGE IM (07:23)
--- NOTE | 2018-11-26 08:02 | PC.NURSE ---
Patient laying on their left side while taking blood pressure so is reflecting in the blood pressure numbers
[2018-11-26] MEDS: ATORVASTATIN 20 MG TABLET 80 MG PO (08:49)
[2018-11-26] MEDS: HALOPERIDOL 1 MG TABLET 2 MG PO ×3 (08:49→19:41)
[2018-11-26] MEDS: LISINOPRIL 5 MG TABLET 2.5 MG PO (08:50)
[2018-11-26] MEDS: MULTIVITAMIN 1 TABLET 1 TAB PO (08:50)
[2018-11-26] MEDS: METOPROLOL ER 25 MG TABLET 12.5 MG PO ×2 (08:50→21:12)
--- NOTE | 2018-11-26 09:03 | PC.NURSE ---
Pt shows aggressive behaviors with AM meds.
--- NOTE | 2018-11-26 09:07 | PC.NURSE ---
Pt states 1 means 1 you stupid f*ck. when giving meds. Clenched fists with this verbalization
--- NOTE | 2018-11-26 09:48 | PC.NURSE ---
Patient resting on bed quietly
--- NOTE | 2018-11-26 10:31 | PC.NURSE ---
Patient remains quiet and resting on bed
--- NOTE | 2018-11-26 10:47 | PC.NURSE ---
Patient woke up and stated he wanted to move around a little....took off excess blankets and placed 3 warm blankets on patient RX found on patient's bed as he spit them out when RN attempted to administer them, attempted to give pt RX with vanilla pudding and unsure what medications he was able to swallow
--- NOTE | 2018-11-26 11:16 | PC.NURSE ---
Patient stated he needed a urinal so gave him one, patient remains very sleepy from medication and so had trouble on his own getting up to urinate...I offered to assist and he said if he needed my help he would ask.....so he slightly sat up and laid on his side and attempted to urinate into a urinal and completely missed it and pee was all over the floor....offered to help patient back up on bed and he refused so he crawled slowly back up onto mattress and we covered him with blankets...patient now resting on bed quietly
--- NOTE | 2018-11-26 11:37 | CM.MNRNOTE ---
Per HUBER Wen, no one accepting pts over weekend for kei-psych. Has a few possibilities set for tomorrow. Also have consult for psych here to eval pt for possible medications to assist in stabilizing pt without sedation effects.
--- NOTE | 2018-11-26 11:57 | PC.NURSE ---
Patient awoke briefly and I asked him if he wanted any pudding and he stated yes, so fed him a few bites of pudding and then he said he was full so placed new warm blankets on him and he is resting quietly on mattress
--- NOTE | 2018-11-26 12:01 | PC.NURSE ---
When awake, pt will talk sharply to staff. Was able to get some bites of pudding into pt. Continuing close observation of pt for continued agitation and aggressive behaviors.
--- NOTE | 2018-11-26 12:23 | PC.NURSE ---
Patient given fig patton cookies and he ate all of them and then I offered vanilla ensure and he took that and drank some also. He asked for a urinal and is now sitting on side of bed attempting to use it. he missed the urinal and urinated on the floor. Had patient move onto bed and cleaned up the urine off floor and then covered patient with new warm blankets. Patient asked about facilities in [facility] for placement. RN informed him that we are working on placement for him Patient is now back on bed resting quietly
--- NOTE | 2018-11-26 12:47 | PC.NURSE ---
pt laying on bed resting.
--- NOTE | 2018-11-26 13:30 | CM.SWNOTE ---
Addendum entered by HUBER Silva 11/26/18 15:41: ADD: Return call from [facility] who profusely apologized as she is new to their facility and did not realize that they cannot accept pt's [facility]. Very unfortunate news. SW attempted to call pt's Dtr and spouse to update and left msg and per ED staff family has not been present so far today. JILL updated ROSA RN, in the ED on status and the facilities that JILL will follow up with in the morning. BF Original Note: Involuntary Placement Cont: Per MD and RN, pt continues to be aggressive and unsafe and requiring regular chemical restraints to keep the pt and staff safe and occasional use of police department to maintain safety of pt and staff. Pt still requiring involuntary Alvin-psych placement for med management/stabilization but pt's age, dementia, and Medicare insurance are barriers to placement. JILL called [facility] to discuss next steps and confirm that the hospital is currently in charge of finding an involuntary bed and they confirmed that since pt was assessed by DCR/DMHP and determined to be gravely disabled and involuntary placement appropriate but was unable to secure bed at that time then walk away status determined and pt on a hold and no further DCR/DMHP assessment needed at this time unless pt has dramatic change in his behavior from what it currently continues to be. JILL followed up on previous JILL attempts at securing an Involuntary, Alvin-psych, Medicare bed as follows: [facility]- Weekend staff unsure if they take Alvin referrals, oldest intake has been 67 yo, detective supervisor will f/u when available [facility]- No [place], very rarely anuj-psych accepted [facility]- No dx of Dementia accepted [facility]- No dx of Dementia accepted [facility]- No dx of Dementia accepted [facility]- No dx of Dementia accepted [facility]- we cannot take anyone combative or in restraints [facility]: Do not take Medicare [facility] [place]: Completely Full [place] [facility] [place]: no answer Elicia Yee/Jose: cannot take dementia dx [facility]: full and no Alvin [facility] [place]: full and no Alvin at that location [facility]: no answer, left msg *[facility], Alvin-Psychiatric facility, P#[phone] (M-F)- They have one bed open this w/e for their ER but will likely have more openings Tuesday, call back. If calling again, Instructed to discuss Jorge's DCP options (memory care unit) from the AlvinPsychiatric facility. Called today and they confirmed to call back tomorrow (Tue) *[facility]: currently full but try again Tuesday (tomorrow) *[facility], Admission Coordinator Rut José M-F P#[phone] or switchboard P# [phone]- Called today and they stated they cannot accept new admits/referrals over the weekend but to call Tuesday morning. *[facility]- Need to go through [facility], referral can be made to [place] if screened by [facility]. [facility] takes ID, [place] referrals also. *[facility] [place]: [phone] Intake Crystal discussed pt over the phone and completed the phone intake and faxed clinicals for them to review for possible placement. SW updated RN and will continue to provide updates as they become available. Plan: SW to follow closely today for [facility] to review pt's clinicals to determine if they can accept today. If no placement found today, then SW to follow tomorrow morning with the above listed 4 facilities that could likely meet pt's needs for Involuntary Placement. SW to attempt to contact pt's family today with updates and follow up if they have toured/called Memory Care facilities for d/c planning placement. HUBER Silva
--- NOTE | 2018-11-26 14:01 | PC.NURSE ---
Patient sleeping, rise and fall of chest noted with NAD. Patient remains on mattress on floor. Moving extremities independently. Sitter remains at bedside
--- NOTE | 2018-11-26 14:05 | PC.NURSE ---
ROSA/MIS SPECIALIST Note: Patient has been asleep since 12:30. Pt. has repositioned him self Independently on mattress.
[2018-11-26] MEDS: OLANZapine ODT 10 MG TAB PO (14:59)
--- NOTE | 2018-11-26 15:20 | PC.NURSE ---
Pt is coop with staff. eating a sandwich and taking water.
--- NOTE | 2018-11-26 16:58 | PC.NURSE ---
HASHER OPERATOR note Pt's dentures are inside the container in the bed with him. He does not want me to touch them. He also refused vital signs. Other than that, pt is calm in bed. He can't seem to get comfortable in one position for very long.
--- NOTE | 2018-11-26 18:17 | PC.NURSE ---
INSIDE UPHOLSTERER note: pt sleeping in kei chair. Seems more comfortanle.
--- NOTE | 2018-11-26 18:43 | PC.NURSE ---
APPLIANCE SERVICE REPRESENTATIVE note: pt wanted out of chair, cathie mccartney getting aggressive and wanted to find his room Another APPLIANCE SERVICE REPRESENTATIVE and I got him back in the bed and removed the chair from the room.
--- NOTE | 2018-11-26 19:15 | PC.NURSE ---
pt is restless and would like to get out of here, pt has some water to drink
--- NOTE | 2018-11-26 19:16 | PC.NURSE ---
pt is restless and is wanting to get out of here, pt door is open to hallway.
--- NOTE | 2018-11-26 19:19 | PC.NURSE ---
Obtained patient care. Sitter at bedside. Patient resting on mattress, eating bar from dinner tray. Cooperative at this time.
--- NOTE | 2018-11-26 19:37 | PC.NURSE ---
helped pt back onto his mattress so nurse could give pt meds to help him clam down.
--- NOTE | 2018-11-26 19:42 | PC.NURSE ---
patient agitated trying to crawl out of room. Yelling at staff and patients walking by. Assisted back to bed. Provided PRN Haldol and cookies with pudding.
[2018-11-26] MEDS: WARFARIN 3 MG TABLET 6 MG PO (21:12)
--- NOTE | 2018-11-26 21:23 | PC.NURSE ---
JAVA LEAD DEVELOPER note: pt has began shouting that [facility] is a torture chamber
[2018-11-27] VITALS (7 sets, daily range): BP systolic 111–156; BP diastolic 60–100; PULSE 72–103; RESP 16–22; TEMP 36.6–36.8; O2SAT 96–99
--- NOTE | 2018-11-27 | PC.NURSE ---
PT has multiple bruises and abrasion to all extremities and redness to sacral area and buttock. Intermittently pt is restless and scooting around room on knees and on buttock. Pt offered assistance with urinal and to return to mattress in room, pt declines states just let me be.
[2018-11-27] MEDS: HALOPERIDOL 1 MG TABLET 2 MG PO (00:10)
--- NOTE | 2018-11-27 00:36 | PC.NURSE ---
1939 patient cooperative to take scheduled medications. Tolerated taking the medication with pudding.
--- NOTE | 2018-11-27 01:20 | PC.NURSE ---
0120 PT agitated, attempted to crawl out of room stating he wants out of here, pt given instruction to move away from door and redirected back into room. PT states that he thinks his right hip is broken. Dr in room to assess pt, pt has bi lat ROM intact in both lower extremities and able to independently move around in room. Door open, sitter at door and medication and pelvic Xray ordered by Dr. Castro.
[2018-11-27] MEDS: HALOPERIDOL 5 MG/ML VIAL 2 MG IM (01:26)
[2018-11-27] MEDS: diphenhydrAMINE 50 MG/ML VIAL 25 MG IM (01:26)
--- NOTE | 2018-11-27 01:27 | DI.RAD.S_ITS ---
PROCEDURE: XR PELVIS 1-2V INDICATIONS: right pain TECHNIQUE: 1 view(s) of the pelvis acquired. COMPARISON: None. FINDINGS: Bones: No fractures or dislocations. No suspicious bony lesions. 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 Soft tissues: Visualized bowel gas pattern is normal. Calcifications in pelvis are likely phleboliths. IMPRESSION: 1. No fractures or dislocation. 2. Degenerative changes. Dictated by: Julio C Braun M.D. on 11/27/2018 at 8:07 Approved by: Julio C Braun M.D. on 11/27/2018 at 8:09
--- NOTE | 2018-11-27 04:03 | PC.NURSE ---
Pt scooting around the floor on his back naked
[2018-11-27] MEDS: LORazepam 2 MG/ML SYRINGE IM ×2 (04:45→21:05)
--- NOTE | 2018-11-27 05:10 | PC.NURSE ---
PT upto financial data analyst room, walked to door with blanket wrapped around his waist stating he wants out of here. Pt asked to move from door and pt fell in room appearing to get tripped by blanket. Pt asked if he was in pain and states he has hip and elbow pain, denies head or neck pain. Pt has abrasion to right knee. Skin tear to right elbow wrapped with telfa and kurlx. Dr. Castro updated by RN.
--- NOTE | 2018-11-27 07:40 | PC.NURSE ---
Pt moved to kei chair. States is much more comfortable. Preparing for breakfast. Placed in depends and scrub paints. Martha well. Cooperative at this time. Taking po water and OJ. Talking with staff. Continues confused to situation. Is not oriented to time and place. TALENT ACQUISITION OPERATIONS MANAGER continuing to try to find placement and consult to psychiatry has been placed.
--- NOTE | 2018-11-27 08:18 | PC.NURSE ---
Meal provided. Taking po fluids. Prune juice provided as unclear when last BM was.
[2018-11-27] MEDS: LISINOPRIL 5 MG TABLET 2.5 MG PO (08:24)
[2018-11-27] MEDS: METOPROLOL ER 25 MG TABLET 12.5 MG PO ×2 (08:24→21:18)
[2018-11-27] MEDS: MULTIVITAMIN 1 TABLET 1 TAB PO (08:26)
[2018-11-27] MEDS: ATORVASTATIN 20 MG TABLET 80 MG PO (08:27)
--- NOTE | 2018-11-27 09:27 | PC.NURSE ---
After breakfast (ate 50%), ambulated pt around ED. Martha good. Pt updated to need for additional admission time. To BR and voided. Passed gas but no BM. Resting on bed at this time. Listening to music at his request.
--- NOTE | 2018-11-27 09:38 | PC.NURSE ---
Pt is sleeping on bed. Rise and fall of chest. Eyes closed. Had been up all night per nightshift staff.
--- NOTE | 2018-11-27 09:51 | PC.NURSE ---
Assisted patient take a brief walk around ER with RN and then helped him lay down on bed
--- NOTE | 2018-11-27 10:19 | PC.NURSE ---
Sleeping still. Moving around on bed.
--- NOTE | 2018-11-27 10:41 | PC.NURSE ---
Pt sleeping. Rise and fall of chest noted. Restful respirations
--- NOTE | 2018-11-27 11:07 | PC.NURSE ---
Pt continues to sleep. Plan to awaken pt at 1130 and toilet. Ambulate pt around ED and then lunch. He is currently awaiting for evaluation by [facility] personnel.
--- NOTE | 2018-11-27 11:14 | PC.NURSE ---
S/W pts daughter and updated her to pt condition and plan for care. Also to possible admission to [facility]
--- NOTE | 2018-11-27 11:27 | PC.NURSE ---
Pt awoke on his own and is assisted to BR. Voided. Ambulated pt with walker around ED and back to room. PO fluids given. Awaiting lunch
--- NOTE | 2018-11-27 11:53 | PC.NURSE ---
Meal provided. Cooperative with care. Mallory from DISPOSAL PLANT OPERATOR here to s/w pt. Continuing to attempt placement.
--- NOTE | 2018-11-27 12:00 | PC.NURSE ---
Housekeeping cleaning room. Bed is changed. Pt in chair eating lunch.
--- NOTE | 2018-11-27 12:38 | PC.NURSE ---
CARBON FURNACE OPERATOR note walked patient around unit with security and Amelia. Patient walked with a walker and reminded him to please stand straight. Patient back in chair listening to big band music. He said he likes that.
--- NOTE | 2018-11-27 12:47 | PC.NURSE ---
Patient was scooting out of the chair. I asked if he needed help. He was trying to laying down. I adjusted his chair to make a bed. Got him a blanket and pillow. Patient is resting.
--- NOTE | 2018-11-27 13:15 | PC.NURSE ---
Patient wanted to get up and go upstairs to watch t.v. Explained to him we didn't have tv here. Patient asked do I need to get up? Do I need to start? I talked to the nurse saying he wanted to watch t.v. She suggested offering him a magazine. I offered him a magazine, refused. Wanted to watch t.v. Offered a newspaper (believing we had those in the waiting room). Wanted one. Went to waiting room (Maddie watching patient). Didn't have newspaper. Got him a Clamdigger instead. Patient is reading the Clamdigger in room.
--- NOTE | 2018-11-27 13:49 | PC.NURSE ---
Patient got up and voided. Very unsteady on feet.
--- NOTE | 2018-11-27 14:17 | PC.NURSE ---
Patient sleeping on side. Seeing rise of chest. Warm blanket on
--- NOTE | 2018-11-27 14:23 | PC.NURSE ---
[facility] director here to discuss possible admit.
--- NOTE | 2018-11-27 14:30 | PC.NURSE ---
Patient resting on side.
--- NOTE | 2018-11-27 14:42 | PC.NURSE ---
Patient sleeping on mattress. Witnessed the rise and fall of his chest.
--- NOTE | 2018-11-27 15:02 | PC.NURSE ---
Patient woke up. Told him he should read the [employer] I got him. He wants to get up and ready for Easter, I told him it wasn't Easter yet. Patient asked how I slept, told him not well. I told him it is just time for relaxation. He is trying to get up from the mattress but can't .
--- NOTE | 2018-11-27 15:12 | PC.NURSE ---
Patient tried to get up, crawling. RN and I offered to help. Laying perpendicular on mattress. Got him warm blankets for comfort
--- NOTE | 2018-11-27 15:29 | PC.NURSE ---
Patient is audibly snoring. Resting perpendicular on mattress.
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
--- NOTE | 2018-11-27 15:49 | PC.NURSE ---
Patient becoming agitated. Trying to get himself off mattress. Refusing help from staff. Pulling his dentures out, but declines denture cup or oral care. Becoming paranoid of staff. He tried to kick INFORMATION SECURITY OFFICER and swung pillow at myself. Attempted to get himself up onto chair and swinging at any staff who approach him. Provider notified and Olanzapine ODT was ordered. He declined any medication from staff. He fell back down from knee level onto padded mattress. No obvious signs of injury noted. Changed order to IM Olanzapine, per verbal provider order. Patient cooperative with injection and resting on mattress at this time. Plan is to admit to floor until he is transferred to [facility] on Tuesday.
[2018-11-27] MEDS: OLANZapine 10 MG VIAL IM (15:56)
--- NOTE | 2018-11-27 16:02 | PC.NURSE ---
Patient resting on side. Tried to get up. Took him three attempts. Xiomara and Josefa got up him with MAX assist to the toilet. Took a lot time to try to void. Wanted to be left alone while voiding. Moved chair close to bed. Took about six minutes to void. Then Amelia and Josefa max assisted him to the chair. Moved patient's chair to middle of room.Patient in chair (in bed position) with pillow and warm blanket.
--- NOTE | 2018-11-27 16:11 | PC.NURSE ---
Assisted FORMWORK CARPENTER to help patient up to toilet. Patient is cooperative with walker and 2 person assist.
[2018-11-27] MEDS: WARFARIN 3 MG TABLET PO (16:20)
--- NOTE | 2018-11-27 16:27 | PC.NURSE ---
Pt sitting in chair, cooperative and taking his PO warfarin without issue. Vital signs taken by CLINICAL PRODUCT SPECIALIST
--- NOTE | 2018-11-27 16:44 | PC.NURSE ---
Received call from Dr. Vernon, who states after speaking with nursing a p supervisor, cannot accept patient now.
--- NOTE | 2018-11-27 17:09 | CM.SWNOTE ---
WATER FILTRATION TECHNICIAN Note: Reviewed chart. Per WATER FILTRATION TECHNICIAN handoff there has been many attempts to place this patient at mental health/geriatric unit. No beds have been found. This WATER FILTRATION TECHNICIAN placed call to Taya at [facility] in [place]. Taya reports that she does have vacant male bed. Taya provided with clinical/verbal information pertaining to patient's behavior. Taya agreeable to come access in person today around 2:00pm. In the meantime, WATER FILTRATION TECHNICIAN left with geriatric facility at [phone] left requesting call back with bed availability. No return call received as of 5:00pm today. Taya from [facility] came to [facility] to evaluate. Taya feels like they can accommodate patient's needs. Taya provided with patient's daughter/son/spouse name phone numbers for financial follow up and DPOA related questions. Per Taya, she has spoken with the family and they are in agreement for patient to go to [facility]. The soonest Taya can accept this patient is Tuesday11-29-18 in AM. WATER FILTRATION TECHNICIAN spoke with Dr. Baker whom is agreement to keep patient in the Emergency Department until safe placement can be obtained. Also received call from [facility], notified them of above. They report that they can come back to evaluate for long term if needed. Nursing reports that patient has been calm and cooperative today. Remains confused. P: Current plan is [facility] on 11-29-18. WATER FILTRATION TECHNICIAN to touch base with family prior to transfer. If patient's behavior unmanageable then [facility] to be called again to have [facility] dispatched for non-voluntary placement. HUBER Steiner
--- NOTE | 2018-11-27 17:22 | PC.NURSE ---
Patient is in chair. Tried to get out, of chair. Told him to keep his legs in. He said don't start. I'll kick you. Letting patient rest. Attempting [employer] to make a tv type thing.
--- NOTE | 2018-11-27 17:27 | PC.NURSE ---
Addendum entered by Carolyn Cruz CNA 11/27/18 17:57: Was told to add exactly what he said about people in the ER. Patient saw an young girl that was with a patient asked in the ER. Said another ? Another nigger? I started to talk over the patient so the child wouldn't hear what this man said. He then continued about why do we have those Africans here? and Why am I here with them? Alerted RNs. Original Note: Patient is trying to get out of the chair. Attempted to get back in. Patient kicked me. Told patient not to touch me. Patient said Baby I wouldn't touch you with a ten foot pole. Then patient saw other people in the ER and made vulgar comments about them. Trying to get out of the chair. Being vulgar with staff. Alerted RN.
[2018-11-27] MEDS: HALOPERIDOL 5 MG/ML VIAL IM (17:45)
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
--- NOTE | 2018-11-27 18:28 | PC.NURSE ---
pt refusing to follow direction, pt got out of chair, walking out of room, pt grabbing at staff, confused. pt yells out help. warm blanket placed around pt, and pt assisted into wheel chair, pt continues to grab what ever he can get his hands on and squeeze. pt assisted from wheelchair to stretcher with 4 person assist. pt refusing to follow direction, pt confused. once in stretcher, 4 point physical restraints placed to each limb. pt mumbling and laying on stretcher.
--- NOTE | 2018-11-27 19:53 | PC.NURSE ---
Attempted to adjust pillows and blankets for patient. Patient attempted to kick me. Moved to other side of the bed to try to get him more comfy and tried to kick me again.
--- NOTE | 2018-11-27 20:16 | PC.NURSE ---
Patient attempted to get out of bed to void. I tried to help. Patient was unsuccessful at voiding.
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
--- NOTE | 2018-11-27 21:01 | PC.NURSE ---
Patient attempted to get up. Got agitated. Xiomara, 2 securities, me, and another staff member tried to calm him down as he walked to the door. Threatening to hit anyone who got near him with balled fists. Lunged and swung at Xiomara. More steps. Then stumbled back to the bed and fell back into the bed, the bed breaking his fall. We moved the bed out of the room and then put the mattress on the floor. It took 3 people to get him back into the mattress with extra staff watching in case. Patient is on mattress. He's trying to get up but is having a hard time getting up. Reminding to stay in bed and get some sleep. Patient is taking pants off.
--- NOTE | 2018-11-27 21:23 | PC.NURSE ---
Patient rolling around in bed. Took off pants.
--- NOTE | 2018-11-27 21:43 | PC.NURSE ---
Patient is resting on bed
--- NOTE | 2018-11-27 21:59 | PC.NURSE ---
Patient is wiggling around. I asked if he needed anything (a warm blanket?). He said a ball scratch. He shook his head and said am I in nursing home? assured him no. He was in the hospital.
--- NOTE | 2018-11-27 22:10 | PC.NURSE ---
Patient had crawled to the floor. Moved him to the bed. Patient now wiggling to get out of bed.
--- NOTE | 2018-11-27 22:11 | PC.NURSE ---
Pt continuing to roll around on stretcher on floor. Rolling himself onto floor face down. Staff continues to reposition him back on mattress. No evidence of new injury at this time.
--- NOTE | 2018-11-27 22:29 | PC.NURSE ---
Attempted to take vital signs. Patient becoming agitated and starting to swing his fists at staff again. Sitter is with patient one to one. Will continue to monitor and attempt vital signs when patient more calm.
--- NOTE | 2018-11-27 22:29 | PC.NURSE ---
Attempted to take patient's vitals. Patient's position prohibited that. He was sleeping on his belly clenched in a position. Blood pressure cuff wouldn't work. We attempted to move him, he refused.
--- NOTE | 2018-11-27 22:45 | PC.NURSE ---
After we spent a lot of time and effort getting him back in the bed/mattress, the patient is back on the floor.
--- NOTE | 2018-11-27 23:17 | PC.NURSE ---
NATIONAL VAN TRUCK DRIVER/SUPPLY CHAIN TECHNICIAN Note: NATIONAL VAN TRUCK DRIVER and myself were able to get patient back on mattress. Patient is taking few sips of water. Pt. is calm and laying down. Pt. has not tried to swing or hit NATIONAL VAN TRUCK DRIVER/SUPPLY CHAIN TECHNICIAN.
--- NOTE | 2018-11-27 23:36 | PC.NURSE ---
RESOURCE MANAGER/OPEN SOURCE DEVELOPER Note: Patient began to become restless. Pt. wiggled him self off the mattress onto the floor. RESOURCE MANAGER and myself managed to get Pt. back on mattress. Patient is laying belly down. Pt. is still restless and moving around in bed. RN aware.
[2018-11-28] VITALS (13 sets, daily range): BP systolic 106–149; BP diastolic 59–93; PULSE 62–135; RESP 16–20; TEMP 36.5–36.6; O2SAT 92–100
--- NOTE | 2018-11-28 00:15 | PC.NURSE ---
CHEMIST HELPER/COMMANDER POLICE RESERVES Note: Patient is still very restless, moving around on mattress/floor. CHEMIST HELPER and myself convinced Pt. to lay back down on mattress. Patient mumbles to self. having a hard time understanding what he says. [address]
--- NOTE | 2018-11-28 00:48 | PC.NURSE ---
CARPET YARN WINDER OPERATOR/BARREL DRAINER note: Patient is still very restless. CARPET YARN WINDER OPERATOR redressed Patient's right forearm dressing. per RN. due to dressing coming off. Patient was compliant, calm, and not aggressive. Patient took a few sips of water. Patient is on mattress moving around and mumbling to him self (not understandable). RN notified.
--- NOTE | 2018-11-28 01:32 | PC.NURSE ---
Pt is now resting in bed on the floor, awake and calm at this time. Slightly restless but redirectable. Right elbow skin tear redressed as old dressing was sliding down. Pt tolerated vital signs. Back rub given to encourage sleep. Pt heard the phone ring at the nurses station and pulled the covers back to get up-- pt reassurred that we will get the phone, he doesn't need to worry about it. He lay down again. Occasionally reaching toward the blank wall as though he sees something there. Lights dimmed in department for comfort, ambient music playing.
--- NOTE | 2018-11-28 01:47 | PC.NURSE ---
Awake, restless. Kicking blankets off and moving to get out of bed. Redirectable. Pt assisted back into bed (was half on the floor), covered with blankets.
--- NOTE | 2018-11-28 02:01 | PC.NURSE ---
The vent was blowing a cool draft on the patient. Mattress shifted away from cold draft and pt given another warm blanket.
--- NOTE | 2018-11-28 02:57 | PC.NURSE ---
The last hour was spent helping the patient take a shower. 2 staff person assist. Pt tolerated well, used a washcloth to wash his head and face. Caregiver assist for back/legs/feet. Pt given all fresh clothing. Declined offer to brush his teeth. Floor bed now in room 13 and made up with sheets to encourage sleep. ELEMENTARY LIBRARIAN now pushing pt around unit in wheelchair. Pt ate a snack of tomato soup. Pt is calm and cooperative at this time. Weaker/more unsteady on feet that nights previous-- pt now 2 person assist to stand and transfer from due to weakness and difficulty coordinating movements.
[2018-11-28] MEDS: HALOPERIDOL 5 MG/ML VIAL 2 MG IM (04:00)
--- NOTE | 2018-11-28 04:23 | PC.NURSE ---
We placed patient in a hospital bed after a shower and long walk around the department ( Jorge in wheel chair and me, TANKER DRIVER, pushing). Jorge was calm and complainant stated that he was tired. After about 20 min he became restless and tried to climb out of bed. I went in and sat at bedside. Patient remained calm for about 20 min but became insistent that he had a Dr's appointment that he had to go to right now. I tried to explain that it was 340 in the morning and that the doctor's office was not open. We tried to explain the time and even called the doctor's office and let him listen to the recording explaining that it was closed. Patient refused to believe that the office was closed and continued to try and get up to go to his Dr's appt. Jorge became violent when we tried to redirect him back into bed. Pt kicked me twice and threatened to kick and hit me multiple times. Due to patients continued aggression we were unable to keep him in the bed. Dr Christie then entered to room to try and help calm the pt, Jorge then took a swing and Dr Christie. He was able to block him by grabbing his wrist while Pt was swinging at him he then backed Jorge up into the bed and we then placed him in 4 point restraints.
[2018-11-28] MEDS: OLANZapine 10 MG VIAL IM (04:34)
--- NOTE | 2018-11-28 05:00 | PC.NURSE ---
Pt began to pull on restraints. I went in can checked on him and offered some water.
--- NOTE | 2018-11-28 05:01 | PC.NURSE ---
Pt stated that he needed to use the restroom and so I placed a urinal for him to use. he was unable to pee but his brief was soaked. I changed his brief and gave him a drink of water.
--- NOTE | 2018-11-28 05:03 | PC.NURSE ---
changed pt's brief
--- NOTE | 2018-11-28 05:15 | PC.NURSE ---
pt called out I went in toe check on him. I offered him some water and he tried to grab my badge with his restrained hand
--- NOTE | 2018-11-28 05:34 | PC.NURSE ---
pt pulled his pillow out from under his head and covered his face. I took the pillow placed it back under his head. I told him that he could not put the pillow over his head
--- NOTE | 2018-11-28 06:15 | PC.NURSE ---
while patient in restraints and was being calm we decided to do a repeat EKG. respiratory therapist at bedside and patient lunging at her. provider aware. patient remained restrained.
--- NOTE | 2018-11-28 06:17 | PC.NURSE ---
We took pt's vital signs and offered both OJ and water. We also switched his arm position and preformed ROM to all four limbs
--- NOTE | 2018-11-28 06:48 | PC.NURSE ---
pt continued to yank at resraints and refuses to fallow directions
--- NOTE | 2018-11-28 07:16 | PC.NURSE ---
Pt kept covering face with pillow so we removed the pillow
--- NOTE | 2018-11-28 07:30 | PC.NURSE ---
OUTSOLE CASER NOTE: Patient has been quietly talking to self and moving around in bed but for the most part has been fairly calm. Has refused needing anything.
--- NOTE | 2018-11-28 07:35 | CM.MNRNOTE ---
Pt in 4 point restraints, pt calm and responding to verbal. pt appears to be visually hallucinating, pt intermittently looks away from staff and speaks (unable to understand words) to an area that there is no one.
--- NOTE | 2018-11-28 07:45 | PC.NURSE ---
COMMUTATOR TESTER Note: Patient still moving around in bed and mumbling to himself, but remains overall calm.
--- NOTE | 2018-11-28 08:15 | PC.NURSE ---
MUSCULOSKELETAL PHYSICIAN NOTE: Breakfast tray ordered for patient. Ate a few bites of pudding, one bite of muffin, and then several sips of ensure. Started to become slightly restless throughout breakfast. Kicked off blankets and moving around.
--- NOTE | 2018-11-28 08:30 | PC.NURSE ---
SEC REPORTING CONSULTANT Note: Patient getting increasingly agitated. Moving around quite often in bed and kicking off blankets. Trying to take off restraint with free hand.
--- NOTE | 2018-11-28 08:35 | PC.NURSE ---
BLIND HANGER Note: Went into room to assist patient with comfort. Asked to have EKG leads removed and socks taken off. Still not being aggressive but seems agitated and trying to get out of bed. Did not want food or fluids when offered or warm blankets.
[2018-11-28] MEDS: LISINOPRIL 5 MG TABLET 2.5 MG PO (08:43)
[2018-11-28] MEDS: ATORVASTATIN 20 MG TABLET 80 MG PO (08:44)
[2018-11-28] MEDS: MULTIVITAMIN 1 TABLET 1 TAB PO (08:45)
[2018-11-28] MEDS: METOPROLOL ER 25 MG TABLET 12.5 MG PO ×2 (08:45→20:44)
--- NOTE | 2018-11-28 08:49 | PC.NURSE ---
PATIENT TRANSPORTATION DRIVER Note: Patient still restless in bed but compliant with nursing/PATIENT TRANSPORTATION DRIVER instructions. Still refuses warm blanket but did take several sips of water while taking morning medications.
--- NOTE | 2018-11-28 09:07 | PC.NURSE ---
INFORMATION STRATEGIST Note: Assisted nurse as she tried to give patient medication. Patient became angry and threw medicine across the room. She very calmly told him he could take the medicine orally or would have to give a shot. Patient still refused and was angry, telling us to Get off his property. Then assisted nurse while giving shot, patient tried to use restrained arm to punch at her and attempted to knee me with his restrained leg.
[2018-11-28] MEDS: LORazepam 2 MG/ML SYRINGE IM (09:09)
--- NOTE | 2018-11-28 09:31 | PC.NURSE ---
TABLET TECHNICIAN Note: Patient attempting to get out of bed. Getting very agitated and aggressive when I go into the room to try and help him get more comfortable in bed and rearrange sheets. Grabbed my arm and squeezed to try and hold me.
--- NOTE | 2018-11-28 09:39 | PC.NURSE ---
MACHINE I ENGRAVER Note: Repositioned patient in bed with help of DROP CREW LABORER. Very relaxed now and sleeping.
--- NOTE | 2018-11-28 09:45 | PC.NURSE ---
WEB PRESS OPERATOR APPRENTICE Note: No mumbling or agitated movement from the patient in last 5 minutes. Seems to have calmed down significantly and now lying with eyes closed.
--- NOTE | 2018-11-28 10:01 | PC.NURSE ---
SUPERVISOR HOME ECONOMICS Note: Patient sleeping.
--- NOTE | 2018-11-28 10:18 | PC.NURSE ---
DIAGNOSTIC RADIOLOGIST Note: Patient still laying quietly sleeping.
--- NOTE | 2018-11-28 10:19 | PC.NURSE ---
SERVICE CREW SUPERVISOR Note: Patient still laying quietly sleeping.
--- NOTE | 2018-11-28 10:45 | PC.NURSE ---
SYSTEMS SPECIALIST Note: Patient still sleeping peacefully.
--- NOTE | 2018-11-28 11:35 | PC.NURSE ---
Patient's restraints were removed by RN and patient is sleeping quietly on bed
--- NOTE | 2018-11-28 12:01 | PC.NURSE ---
ROLLED SEAT TRIMMER Note: patient lying on bed and sleeping.
--- NOTE | 2018-11-28 13:15 | PC.NURSE ---
VOUCHER EXAMINER Note: Patient still laying on bed sleeping.
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
[2018-11-28] MEDS: WARFARIN 3 MG TABLET 6 MG PO (15:25)
[2018-11-28] MEDS: HALOPERIDOL 1 MG TABLET 2 MG PO (15:25)
--- NOTE | 2018-11-28 15:56 | PC.NURSE ---
periodically talking to self, can somewhat be redirected when trying to get out of bed
--- NOTE | 2018-11-28 16:02 | PC.NURSE ---
Patient is sleeping soundly at this time about 5 minutes
--- NOTE | 2018-11-28 16:23 | PC.NURSE ---
awake and trying to get out of bed, ask for assist to have side rail down so he can get out of bed
[2018-11-28] MEDS: OLANZapine ODT 10 MG TAB PO ×2 (16:30→20:45)
--- NOTE | 2018-11-28 17:13 | PC.NURSE ---
got confuse asking about train track I have try redirect patient where he is and he got agitated and start to curse.
--- NOTE | 2018-11-28 17:18 | PC.NURSE ---
patient got agitated when try to redirect him as to where he is, he [place]
--- NOTE | 2018-11-28 19:27 | PC.NURSE ---
pt laying on bed talking out loud
--- NOTE | 2018-11-28 19:29 | PC.NURSE ---
Pt is calm and redirectable. He took sips of water and benito baljit from me as well as 1/2 cup of applesauce. Repositioned for comfort.
--- NOTE | 2018-11-28 19:31 | PC.NURSE ---
pt resting on bed, door is open to hallway
--- NOTE | 2018-11-28 19:45 | PC.NURSE ---
pt is resting on bed talking out loud, door is open to hallway
--- NOTE | 2018-11-28 20:02 | PC.NURSE ---
pt is dangling his legs off the side of bed, rail is up
--- NOTE | 2018-11-28 20:46 | PC.NURSE ---
2039 Pt attempting to crawl out of bed, pt repositioned to trendelenburg to prevent pt from crawling out of bed. RN in room to give pt meds and take vital signs, pt calm and cooperative took meds with pudding. Pt offered water and pt declined.
--- NOTE | 2018-11-28 21:05 | PC.NURSE ---
been awake tossing and turning in bed, toss feet off to the side of the bed trying to get up and talking to self
--- NOTE | 2018-11-28 21:57 | PC.NURSE ---
patient is finally sleeping
[2018-11-29] VITALS: BP 132/51; PULSE 53; RESP 20; O2SAT 94
--- NOTE | 2018-11-29 00:15 | PC.NURSE ---
ENDOCRINOLOGY NURSE and sitter in room to change pt brief due to episode of urinary incontinence. Dressing to right elbow skin tear changed and bacitracin, telfa and kurlx placed wound is clean and dry with bleeding controlled.
--- NOTE | 2018-11-29 00:17 | PC.NURSE ---
Changed Pt's skin tare dressing with telfa, bacitracin and curlex to hold in place.
--- NOTE | 2018-11-29 05:00 | PC.NURSE ---
PT resting in bed with eyes closed, quiet and calm with door open and sitter at bedside. Respirations observed.
[2018-11-29 06:30] VITALS: BP 127/90; PULSE 74; RESP 20; O2SAT 97
[2018-11-29] MEDS: LISINOPRIL 5 MG TABLET 2.5 MG PO (09:09)
[2018-11-29] MEDS: ATORVASTATIN 20 MG TABLET 80 MG PO (09:12)
[2018-11-29] MEDS: MULTIVITAMIN 1 TABLET 1 TAB PO (09:13)
[2018-11-29] MEDS: METOPROLOL ER 25 MG TABLET 12.5 MG PO (09:13)
[2018-11-29] MEDS: OLANZapine ODT 10 MG TAB PO (09:14)
[2018-11-29] MEDS: HALOPERIDOL 1 MG TABLET 2 MG PO (09:22)
[2018-11-29] MEDS: diphenhydrAMINE 50 MG/ML VIAL 25 MG IM (09:37)
[2018-11-29] MEDS: LORazepam 2 MG/ML SYRINGE IM (09:37)
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
[2018-11-29 10:00] VITALS: RESP 20
--- NOTE | 2018-11-29 10:47 | PC.NURSE ---
Call to intake person and RN taking pt to tell them about pts agitation and medication recieved
--- NOTE | 2018-11-29 10:48 | PC.NURSE ---
pt sedated after Ativan and benadryl. [facility] here to transfer pt to [facility].
--- NOTE | 2018-11-29 10:53 | PC.NURSE ---
Left message for and daughter, was able to make contact with son Mauricio regarding patient belongings in safe. Mauricio stated he would bean picker machine operator on Tuesday when he is here. Will consult legal on how to get claim tickets to son.
--- NOTE | 2018-11-29 10:56 | PC.NURSE ---
ATorvastaton not taken by pt
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
--- NOTE | 2018-12-01 17:15 | PC.NURSE ---
Patients valuables were left in the safe after pt was discharged from ED to [facility]. Pts son arrived today (12/01/18) to collect the belongings. No paper work was filled out about the valuables that were put in to the valuables bag and then placed in the safe. Son (Mauricio Leo) signed the back of the tear off receipt that was part of the valuables bag.
--- NOTE | 2018-12-27 11:10 | PC.NURSE ---
Should have have critical care time for entire time her was here
== END 2018-11-29 10:49 ==
PROVIDERS: Emergency Medicine; Emergency Provider Emergency Medicine; PCP Internal Medicine
DX: F03.91 Unspecified dementia, unspecified severity, with behavioral disturbance (principal); I48.91 Unspecified atrial fibrillation; R45.6 Violent behavior; R41.82 Altered mental status, unspecified; Z95.2 Presence of prosthetic heart valve; Z95.1 Presence of aortocoronary bypass graft
CPT/HCPCS: 36415; 51798; 70450; 72170; 80048; 80053; 80305; 80320; 81003; 81015; 83605; 84443; 85025; 85610; 85730; 93005; 96372; 99285; 99291; 99292; J1200; J1630; J2060; S0166